=== PATIENT | female | born 1940 | race Caucasian/White ===

== ENCOUNTER 2023-05-24 15:18 | Emergency (ER) | payer MEDICARE, SELFPAY ==
[2023-05-24 15:23] VITALS: BP 137/76
[2023-05-24 15:55] LABS: % Basophils 0.5 % (0-2); % Eosinophils 3.2 % (0-6); % Immature Granulocytes 0.3 % (0-0.5); % Lymphocytes 7.6 % (20.5-51.1); % Monocytes 6.3 % (1.7-9.3); % Neutrophils 82.1 % (42.2-75.2); Absolute Eosinophils 0.3 10^3/uL (0-0.7); Absolute Lymphocytes 0.6 10^3/uL (1.2-3.4); Absolute Monocytes 0.5 10^3/uL (0.1-0.6); Absolute Neutrophils 6.4 10^3/uL (1.4-6.5); Hematocrit 40.7 % (37.0-47.0); Hemoglobin 12.6 g/dL (12.0-16.0); Mean Corpuscular Hgb 29.6 pg (27.0-31.0); Mean Corpuscular Volume 95.8 fL (81.0-99.0); Mean Platelet Volume 9.4 fL (7.4-10.4); Nucleated Red Blood Cells % 0 %; Platelet Count 171 10^3/uL (130-400); Red Blood Cell Count 4.25 10^6/uL (4.20-5.40); Red Cell Dist. Width 13.2 % (11.5-14.5); White Blood Cell Count 7.8 10^3/uL (4.8-10.8)
[2023-05-24 16:19] LABS: NT-proBNP 2960 pg/ml; Troponin I 0.024 ng/ml
[2023-05-24 16:23] LABS: ALT (SGPT) 11 U/L (0-35); AST (SGOT) 21 U/L (14-36); Albumin 3.9 g/dl (3.5-5.0); Alkaline Phosphatase 79 U/L (38-126); Blood Urea Nitrogen 36 mg/dl (7-17); Calcium 10.5 mg/dl (8.4-10.2); Carbon Dioxide 31 mmol/L (22-30); Chloride 100 mmol/L (98-107); Glucose 106 mg/dl (70-99); Potassium 4.6 mmol/L (3.5-5.1); Sodium 138 mmol/L (135-145); Total Bilirubin 1.2 mg/dl (0.2-1.3); Total Protein 6.9 g/dl (6.3-8.2); eGFR 29.39
--- NOTE | 2023-05-24 17:41 | ED.GENMED ---
History of Present Illness
General
Chief Complaint: Breathing Problem
Time Seen by Provider: 05/24/23 17:29
Travel History
Have you had any contact with someone who has COVID-19?: No
Do you have any symptoms of coronavirus? Fever > 100 degrees, chills, cough, shortness of breath, sore throat, loss of taste or smell, muscle aches, or headache?: No
History of Present Illness
History of Present Illness:
HPI: Patient presents due to shortness of breath. She has history of COPD and CHF. She noticed increased weight gain as well. She saw her a and p mechanic about 2 weeks ago and saw her product ambassador, Dr. Tubbs last week. She says that at that time
things were 'fine'. The shortness of breath has been a slow progression. She does have oxygen at home and her a and p mechanic suggest that she uses oxygen when she is out but does not have to use it at rest.
EXAM:
GENERAL: Well appearing in no distress, currently on nasal cannula satting 95% on 2 L/min
HEENT: Moist oral mucosa
CARDIOVASCULAR: No murmurs, normal heart rate, regular rhythm, No chest wall tenderness
PULMONARY: No respiratory distress, breath sounds are equally decreased with some rales at the bases
ABDOMEN: Soft with no peritoneal signs, no tenderness
NEUROLOGIC: Excellent strength all extremities, no coordination deficits
PSYCHIATRIC: Appropriate mental status, normal insight and judgement
EXTREMITIES: Nontender, moderate bilateral lower extremity edema, moves all extremities equally
SKIN: No rash, no lesions
TIME OF INITIAL ENCOUNTER: 6 PM
NUMBER AND COMPLEXITY OF PROBLEMS ADDRESSED AT THE ENCOUNTER
� Chronic conditions affecting care: Asthma, COPD, former smoker on home oxygen, A-fib, CHF, high blood pressure, hyperlipidemia, CKD, diabetes
� Acute Exacerbation and/or Progression of Chronic Illness: This is an acute problem
� Differential Diagnosis includes: CHF exacerbation, COPD exacerbation, pneumonia, viral syndrome, anemia
AMOUNT AND/OR COMPLEXITY OF DATA TO BE REVIEWED AND ANALYZED
� I performed an independent evaluation of and my interpretation is:
EKG: A paced, ventricular rate of 62, bifascicular block
CT:
X-rays: Chest x-ray shows no acute abnormality
Laboratory Studies: White count 7.8, hemoglobin 12.6, bicarb 31 similar to prior, creatinine 1.7 similar to prior, troponin 0.024, BNP 2960 which is lower than prior
Other:
� Review of other/old records: I reviewed old labs which shows similar bicarb and creatinine
� Clinical information was obtained by an independent historian: I spoke to the son at bedside
� Prescriptions/Medications Considered but not given:
� Further testing considered but not performed:
RISK OF COMPLICATIONS AND/OR MORBIDITY OR MORTALITY OF PATIENT MANAGEMENT
� Social determinants of health affecting care: Lives at home
� Discussion with other providers:
� Escalation of care including admission/observation vs risk of discharge considered: The patient does have history of COPD and CHF. She was given nebs steroids, and Bumex. She already has oxygen at home. She does not appear
to be in any significant respite distress currently. She has follow-up this week with pulmonary. I reassessed patient at 7:20 PM and she does not appear to be in any significant distress. Her room air sats currently are 98% on 2 L/min of oxygen.
Chest x-ray unremarkable. She overall feels comfortable with outpatient management.
Past History
Past History
ED Past Medical History: Arrthythmia, Asthma, CHF, COPD, NIDDM and Other (GI bleeding)
ED Past Surgical History:
Patient has exhibited threatening behavior?: No
PSI?: No
Social History
Tobacco: Former smoker
Alcohol: None
Drug: None
Personal:
Living: with family
Employment: Retired
Family History
Family History: Other (Noncontributory)
Phy Exam
Physical Exam
Physical Exam:
See HPI
Scores
Heart Failure Risk
Heart Failure Risk Score: Not Applicable
Course
Orders/Labs/Results
Orders:
Orders
05/24/23 15:30
EKG [Electrocardiogram (*1)] Urgent
Reason for Study: Shortness of Breath
EKG- Treatment ONCE
05/24/23 15:42
Complete Blood Count/With Diff Urgent
Comprehensive Metabolic Panel Urgent
NT-proBNP Urgent
Troponin I Urgent
05/24/23 17:42
CR Chest - 2 Views Urgent
Comment:
Reason For Exam: sob
05/24/23 18:07
Ipratropium/Albuterol Sulfate [Duoneb] 3 ml INH R NOW ONE
MethylPREDNISolone PF [Solu-Medrol Pf] 125 mg IV NOW STA
05/24/23 19:08
Bumetanide [Bumex] 2 mg IV NOW STA
Abnormal Lab Results
05/24/23
15:42
MCHC 31.0 L g/dL
(33.0-37.0)
Absolute Lymphs (auto) 0.6 L 10^3/uL
(1.2-3.4)
Neutrophils % 82.1 H %
(42.2-75.2)
Lymphocytes % 7.6 L %
(20.5-51.1)
Carbon Dioxide 31 H mmol/L
(22-30)
BUN 36 H mg/dl
(7-17)
Creatinine 1.7 H mg/dL
(0.6-1.0)
Glucose 106 H mg/dl
(70-99)
Calcium 10.5 H mg/dl
(8.4-10.2)
05/24/23 15:42
05/24/23 15:42
Vital Signs
Initial and Last Documented VS:
Initial Vital Signs
Temp Pulse Resp BP Pulse Ox
98.2 F 63 22 137/76 96
05/24/23 15:23 05/24/23 15:23 05/24/23 15:23 05/24/23 15:23 05/24/23 15:23
Last Documented Vital Signs
Temp Pulse Resp BP Pulse Ox
98.2 F 61 16 137/76 96
05/24/23 15:23 05/24/23 18:00 05/24/23 18:00 05/24/23 15:23 05/24/23 18:35
*Critical Care Note
Total Time (30-74mins, 75-104mins- exclusive of procedures): Not Applicable
ED Attending Note
-
Portions of this chart may have been created with voice recognition software.� Occasional wrong word or��sound alike� substitutions may have occurred due to the inherent limitations of voice recognition software.
Discharge Plan
Departure
Patient Disposition: Home (Routine Discharge)
Date of Disposition: 05/24/23
Time of Disposition: 19:17
Patient with high blood pressure during this ER visit?: Yes
Discharge Problem:
Increasing shortness of breath
Prescriptions:
New
prednisone 50 mg tablet
50 mg PO DAILY Qty: 4 0RF
No Action
atorvastatin [Lipitor] 10 mg Tablet
10 mg PO HS
Farxiga 10 mg Tablet
10 mg PO DAILY
duloxetine [Cymbalta] 20 mg Capsule,Delayed Release(Dr/Ec)
20 mg PO HS
metoprolol tartrate 25 mg Tablet
25 mg PO BID 30 Days Qty: 60 0RF
Eliquis 2.5 mg Tablet
2.5 mg PO BID 30 Days Qty: 60 0RF
Hold Instructions: Resume on 10/23/22. resume 10/23/22 starting PM dose
omeprazole 20 mg Capsule,Delayed Release(Dr/Ec)
20 mg PO DAILY
bumetanide 2 mg Tablet
2 mg PO DAILY Qty: 0 0RF
ferrous sulfate 325 mg (65 mg iron) Tablet
325 mg PO DAILY
polyethylene glycol 3350 17 gram Powder In Packet
17 g PO DAILY
amlodipine 2.5 mg Tablet
2.5 mg PO DAILY
alprazolam 0.25 mg Tablet
0.25 mg PO Q6H PRN (Reason: anxiety)
fluorouracil 0.5 % Cream
1 applic TOPICAL HS
diclofenac sodium 1 % Gel
4 g TOPICAL TID PRN (Reason: apply to left foot)
Trelegy Ellipta 100-62.5-25 mcg Blister With Device
1 inh INHALATION R DAILY
acetaminophen 325 mg Tablet
650 mg PO Q4HPRN PRN (Reason: mild pain/JAMA/temp> 100.4F) Qty: 0 0RF
Eliquis 5 mg tablet
5 mg PO BID Qty: 60 4RF
Referrals:
Stacy Oliveira DO [Family Provider] -
Activity Restrictions/Additional Instructions:
We gave an IV dose of Bumex as well as an IV dose of steroid. I am sending a prescription to your pharmacy for a few days of steroid help treat COPD. We also gave a DuoNeb here. Follow-up with your a and p mechanic and product ambassador.
Interventions
Interventions:
*Risk Screen - Suicide Last Done: 05/24/23 17:46
*General Assessment Last Done: 05/24/23 17:46
*Neglect/Abuse Screening Last Done: 05/24/23 17:46
ED- Fall Risk Assessment Last Done: 05/24/23 17:47
*ED COVID-19 Vaccine History Last Done: 05/24/23 17:46
ED- Cardiac Assessment Last Done: 05/24/23 17:47
ED- Pulmonary Assessment Last Done: 05/24/23 17:47
Discharge Date and Time
Print Language: WELSH
[2023-05-24 17:44] VITALS: BMI 27.2
[2023-05-24] MEDS: DUONEB 3 ML INH (19:07)
[2023-05-24] MEDS: SOLU-MEDROL PF 125 MG IV (19:07)
--- NOTE | 2023-05-24 19:17 | EDRN ---
Rrport received, introduced to patient and medicated as ordered, Doctor in to update patient as well.
[2023-05-24] MEDS: BUMEX 1 MG IV (19:31)
[2023-05-24 19:32] VITALS: BP 102/87
== END 2023-05-24 19:51 | disposition home or self-care (01) ==
LOC: EMR 15:18
PROVIDERS: EMERGENCY PHYSICIAN Emergency Medicine; FAMILY PHYSICIAN Student in an Organized Health Care Education/Training Program
DX: R06.02 Shortness of breath (principal); R22.43 Localized swelling, mass and lump, lower limb, bilateral; J44.89 Other specified chronic obstructive pulmonary disease; I48.91 Unspecified atrial fibrillation; I12.9 Hypertensive chronic kidney disease with stage 1 through stage 4 chronic kidney disease, or unspecified chronic kidney disease; I50.9 Heart failure, unspecified; E11.9 Type 2 diabetes mellitus without complications; N18.9 Chronic kidney disease, unspecified; E78.00 Pure hypercholesterolemia, unspecified; Z99.81 Dependence on supplemental oxygen; Z87.891 Personal history of nicotine dependence
CPT/HCPCS: 99285; 96374; 96375; 94640; 71046; 80053; 83880; 84484; 85025; 93005

== ENCOUNTER → 2023-06-11 12:34 | Outpatient (REF) | payer MEDICARE, SELFPAY ==
[2023-06-11 13:28] LABS: Albumin 3.7 g/dl (3.5-5.0); Blood Urea Nitrogen 44 mg/dl (7-17); Calcium 10.1 mg/dl (8.4-10.2); Carbon Dioxide 37 mmol/L (22-30); Chloride 101 mmol/L (98-107); Glucose 147 mg/dl (70-99); Phosphorus 4.1 mg/dl (2.5-4.5); Potassium 4.1 mmol/L (3.5-5.1); Sodium 140 mmol/L (135-145); eGFR 22.81
[2023-06-11 13:35] LABS: Hematocrit 39.1 % (37.0-47.0); Hemoglobin 12.5 g/dL (12.0-16.0); Mean Corpuscular Hgb 30.3 pg (27.0-31.0); Mean Corpuscular Volume 94.7 fL (81.0-99.0); Mean Platelet Volume 10.3 fL (7.4-10.4); Platelet Count 165 10^3/uL (130-400); Red Blood Cell Count 4.13 10^6/uL (4.20-5.40); Red Cell Dist. Width 13.7 % (11.5-14.5)
[2023-06-13 12:23] LABS: Intact PTH 368.6 pg/ml (13.6-85.8)
== END ==
LOC: OLABMERCHI 12:34
PROVIDERS: ATTENDING PHYSICIAN Internal Medicine; FAMILY PHYSICIAN Student in an Organized Health Care Education/Training Program
DX: N18.4 Chronic kidney disease, stage 4 (severe) (principal)
CPT/HCPCS: 36415; 80069; 83970; 85027

== ENCOUNTER → 2023-07-09 10:34 | Outpatient (REF) | payer MEDICARE, SELFPAY ==
[2023-07-09 11:55] LABS: HDL Cholesterol 41 mg/dl; LDL Cholesterol, Calculated 57 mg/dl; Total Cholesterol 121 mg/dl (50-199); Triglyceride 115 mg/dl (10-149); Very Low Density Lipoprotein 23 mg/dl (0-30)
[2023-07-09 12:12] LABS: Free T4 1.06 ng/dl (0.78-2.19)
[2023-07-09 12:23] LABS: Microalbumin, Random Urine 3.2 mg/dl (0.6-1.7); Microalbumin/creatinine Ratio 30.6 mg/g
[2023-07-09 12:26] LABS: TSH 1.48 uIU/ml (0.47-4.68)
[2023-07-09 14:26] LABS: Glycohemoglobin (HgbA1c) 5.5 % (4.0-5.6)
== END ==
LOC: OLABMERCHI 10:34
PROVIDERS: ATTENDING PHYSICIAN Student in an Organized Health Care Education/Training Program
DX: F32.0 Major depressive disorder, single episode, mild (principal); I10 Essential (primary) hypertension; E11.65 Type 2 diabetes mellitus with hyperglycemia; E53.8 Deficiency of other specified B group vitamins; I48.4 Atypical atrial flutter
CPT/HCPCS: 36415; 80061; 82043; 82570; 83036; 84439; 84443

== ENCOUNTER 2023-08-24 22:14 | Emergency (ER) | payer MEDICARE, SELFPAY ==
[2023-08-24 22:14] VITALS: BMI 25.4
[2023-08-24 22:17] VITALS: BP 140/63
[2023-08-24 22:44] LABS: % Basophils 0.8 % (0-2); % Eosinophils 2.6 % (0-6); % Immature Granulocytes 0.2 % (0-0.5); % Lymphocytes 10.8 % (20.5-51.1); % Monocytes 6.7 % (1.7-9.3); % Neutrophils 78.9 % (42.2-75.2); Absolute Basophils 0.1 10^3/uL (0-0.2); Absolute Eosinophils 0.2 10^3/uL (0-0.7); Absolute Monocytes 0.6 10^3/uL (0.1-0.6); Absolute Neutrophils 7.2 10^3/uL (1.4-6.5); Hematocrit 36.3 % (37.0-47.0); Hemoglobin 11.9 g/dL (12.0-16.0); Mean Corp Hgb Conc. 32.8 g/dL (33.0-37.0); Mean Corpuscular Hgb 30.9 pg (27.0-31.0); Mean Corpuscular Volume 94.3 fL (81.0-99.0); Mean Platelet Volume 9.4 fL (7.4-10.4); Nucleated Red Blood Cells % 0 %; Platelet Count 181 10^3/uL (130-400); Red Blood Cell Count 3.85 10^6/uL (4.20-5.40); Red Cell Dist. Width 13.2 % (11.5-14.5); White Blood Cell Count 9.1 10^3/uL (4.8-10.8)
[2023-08-24 23:02] LABS: ALT (SGPT) 12 U/L (0-35); AST (SGOT) 21 U/L (14-36); Alkaline Phosphatase 64 U/L (38-126); Blood Urea Nitrogen 56 mg/dl (7-17); Calcium 10.1 mg/dl (8.4-10.2); Carbon Dioxide 33 mmol/L (22-30); Chloride 97 mmol/L (98-107); Estimated Creatinine Clearance 17 ml/min; Glucose 136 mg/dl (70-99); Potassium 4.6 mmol/L (3.5-5.1); Sodium 138 mmol/L (135-145); Total Bilirubin 0.8 mg/dl (0.2-1.3); Total Protein 6.7 g/dl (6.3-8.2); eGFR 25.72
[2023-08-25] VITALS (7 sets, daily range): BP systolic 139–166; BP diastolic 56–85
--- NOTE | 2023-08-25 02:19 | ED.GENMED ---
History of Present Illness
General
Chief Complaint: Vaginal Bleeding
Source: patient
Exam Limitations: none
Time Seen by Provider: 08/25/23 01:33
History of Present Illness
History of Present Illness:
This is a 83 year old female that comes in with c/o bleeding from her vaginal. State that she had gone to dinner and then came back after dinner to the [place]. States that everything was fine. States that she went out and sat outside with everyone till
9pm. States that when she came in and went to Urinate she saw some blood. States that she felt it was bright red. States that she also felt that there was a gland that was larger on the right side. States that she is always SOB. Denies any
fever,chills, chest pain, abd pain, nausea, vomiting, diarrhea, headache, dizziness, urinary burning.
Past History
Past History
ED Past Medical History: Arrthythmia (Atrial fib), Asthma, Cancer (Skin CA), CHF, COPD, GERD, HTN, Hypercholesterolemia, NIDDM, Renal failure (Stage 4 renal disease), Psychiatric (Depression, ) and Other (GI bleeding, Ulcers, Chronic bronchitis,
Wears oxygen at 2 liters, UTI, Iron Def anemia, )
ED Past Surgical History: Cardiac (Pacemaker, Mitral valve repair, Stents x 2), Cholecystectomy, (X3 ), Orthopedic (Left hand surgery, ) and Other (Right eye surgery, )
Patient has exhibited threatening behavior?: No
PSI?: No
Social History
Tobacco: Former smoker
Alcohol: None
Drug: None
Personal:
Living: assisted living ([facility])
Employment: Retired
Family History
Family History: Other (Noncontributory)
Review of Systems
Review of Systems
All Other Systems: ROS reviewed and negative except as documented in HPI and ROS
Constitutional: Reports no symptoms; Denies fever or chills
EENT: Reports no symptoms
Respiratory: Reports trouble breathing (Always); Denies cough
Cardiac: Reports no symptoms; Denies chest pain
ABD/GI: Reports no symptoms; Denies abdominal pain, nausea, vomiting or diarrhea
: Reports bleeding (vaginal bleeding); Denies dysuria, frequency or urgency
Musculoskeletal: Reports no symptoms
Skin: Reports no symptoms
Neurological: Reports no symptoms; Denies dizzy or headache
Psychiatric: Reports no symptoms
Phy Exam
General Physical Exam
General Presentation: well appearing and no apparent distress
General age: appears stated age
General Skin: warm and dry
General Habitus: elderly
General Mental: alert
General Hydration: appears well hydrated
ENT Exam
ENT Exam: TM's normal, pharynx normal and neck supple
Eye Exam
Eye Exam: EOMI
Cardiovascular Exam
Cardiovascular Exam: regular rate/rhythm, no edema and normal peripheral pulses
Pulmonary Exam
Pulmonary Exam: lungs clear, no respiratory distress, no rales, chest non tender, no crackles, no rhonchi, no wheezing and no cough
Gastrointestinal Exam
Gastrointestinal Exam: normal bowel sounds, non tender, soft, no organomegaly, no pulsatile mass, non distended and other (Rectal exam stool brown hem negative)
Genitourinary Exam Female
Vaginal Exam: other (Small abrasion noted on the right external vaginal area. No bleeding noted at this time. )
Musculoskeletal Exam
Musculoskeletal Exam: full ROM and no edema
Skin Exam
Skin Exam: normal color, warm/dry, no rash and no petechia
Psychiatric Exam
Psychiatric Exam: normal mood/affect
Course
Orders/Labs/Results
Orders:
Orders
08/24/23 22:36
Complete Blood Count/With Diff Urgent
Comprehensive Metabolic Panel Urgent
08/25/23 02:14
Urinalysis Reflex To Culture Urgent
Date Specimen was Collected: 08/25/23
Time Specimen was Collected: 02:13
Urine Microscopic Reflex Cult Urgent
Abnormal Lab Results
08/24/23 08/25/23
22:36 02:14
RBC 3.85 L 10^6/uL
(4.20-5.40)
Hgb 11.9 L g/dL
(12.0-16.0)
Hct 36.3 L %
(37.0-47.0)
MCHC 32.8 L g/dL
(33.0-37.0)
Absolute Neuts (auto) 7.2 H 10^3/uL
(1.4-6.5)
Absolute Lymphs (auto) 1.0 L 10^3/uL
(1.2-3.4)
Neutrophils % 78.9 H %
(42.2-75.2)
Lymphocytes % 10.8 L %
(20.5-51.1)
Chloride 97 L mmol/L
(98-107)
Carbon Dioxide 33 H mmol/L
(22-30)
BUN 56 H mg/dl
(7-17)
Creatinine 1.9 H mg/dL
(0.6-1.0)
Glucose 136 H mg/dl
(70-99)
Ur Occult Blood Reflex 1+ A
(Negative)
Urine RBC 3-6 A /HPF
(0-2)
Urine Glucose 1+ A
(Negative)
08/24/23 22:36
08/24/23 22:36
H/H very slightly low. Charbon dioxide elevation. Chronic renal disease Stage 4, Glucose nonfasting. Urine negative for infection but positive for blood.
Vital Signs
Initial and Last Documented VS:
Initial Vital Signs
Temp Pulse Resp BP Pulse Ox
98.9 F 61 20 140/63 95
08/24/23 22:17 08/24/23 22:17 08/24/23 22:17 08/24/23 22:17 07/01/24 22:17
Last Documented Vital Signs
Temp Pulse Resp BP Pulse Ox
98.9 F 61 20 140/63 95
08/24/23 22:17 08/24/23 22:17 08/24/23 22:17 08/24/23 22:17 08/24/23 22:17
MDM/Problems Addressed
Differential Diagnosis Includes:
vaginal abrasion, UTI
MDM/Problems Addressed:
This is a 83 year old female that comes in with c/o bleeding from her vagina. States that after she came in around 9pm she went to the bathroom and she urinated and said that there was blood. States that she felt the gland on the right sided was
swollen in the vaginal area.
Will check labs. Straight cath urine and check external vaginal area.
back into see patient. Explained that her urine is negative for infection but there was some blood. This blood that was seen may be from the vaginal abrasion of Hematuria. Will have patient follow up with the family doctor and if needed a
Urologist. Patient to return with increased bleeding or any other concerns,.
Chronic conditions affecting care:
NA
Acute Exacerbation and/or Progression of Chronic Illness:
NA
*Pulse Oximetry
Patient hypoxic: no
*EKG
Interpreted by ED Provider?: NA
Rate: EKG- N/A
*Engineering Mgr Interpretation
Rate: Engineering Mgr- N/A
*Critical Care Note
Total Time (30-74mins, 75-104mins- exclusive of procedures): Not Applicable
ED Attending Note
-
Portions of this chart may have been created with voice recognition software.� Occasional wrong word or��sound alike� substitutions may have occurred due to the inherent limitations of voice recognition software.
Discharge Plan
Departure
Patient Disposition: Home (Routine Discharge)
Date of Disposition: 08/25/23
Time of Disposition: 02:49
Patient with high blood pressure during this ER visit?: Yes
Condition: Good
Covid-19: Not Applicable
Discharge Problem:
Abrasion of vagina
Instructions: Abrasions ED, BLOOD PRESSURE
Prescriptions:
No Action
atorvastatin [Lipitor] 10 mg Tablet
10 mg PO HS
dapagliflozin propanediol [Farxiga] 10 mg Tablet
10 mg PO DAILY
omeprazole 20 mg Capsule,Delayed Release(Dr/Ec)
20 mg PO DAILY@0700
bumetanide 2 mg Tablet
2 mg PO DAILY Qty: 0 0RF
ferrous sulfate 325 mg (65 mg iron) Tablet
325 mg PO DAILY
polyethylene glycol 3350 17 gram Powder In Packet
17 g PO DAILY
Trelegy Ellipta 100-62.5-25 mcg Blister With Device
1 inh INHALATION R DAILY
acetaminophen 325 mg Tablet
650 mg PO Q4HPRN PRN (Reason: mild pain/JAMA/temp> 100.4F) Qty: 0 0RF
duloxetine 30 mg capsule,delayed release(DR/EC)
30 mg PO HS
metoprolol tartrate 25 mg tablet
25 mg PO BID@0900,1700
Eliquis 2.5 mg tablet
2.5 mg PO BID@0900,1700
Referrals:
Stacy Oliveira DO [Family Provider] - Follow up in 2-3 days
Activity Restrictions/Additional Instructions:
As discussed, your blood work shows your chronic renal disease. Your H/H is slightly low but consistent with prior labs. There is a small abrasion on the right vaginal area that may have cause your bleeding. Your urine is also positive for blood.
This bleeding that you have seen may go away on its own. Please follow up with the family doctor for recheck. IF YOU HAVE INCREASED BLEEDING OR ANY OTHER CONCERNS PLEASE RETURN TO THE EMERGENCY ROOM.
Interventions
Interventions:
*Risk Screen - Suicide Last Done: 08/24/23 22:17
*General Assessment Last Done: 08/24/23 22:17
*Neglect/Abuse Screening Last Done: 08/24/23 22:17
*ED COVID-19 Vaccine History Last Done: 08/24/23 22:17
ED-Female Genitourinary Assessment Last Done: 08/24/23 22:28
Discharge Date and Time
Print Language: URDU
[2023-08-25 02:25] LABS: Urine Albumin Negative (Neg - Trace); Urine Bilirubin Negative (Negative); Urine Character Clear (Clear); Urine Color Yellow; Urine Glucose 1+ (Negative); Urine Ketone Negative (Negative); Urine Leukocyte Negative (Negative); Urine Nitrite Negative (Negative); Urine Occult Blood 1+ (Negative); Urine Urobilinogen Negative (Neg - 1+); Urine pH 6.5 (5.0-9.0)
[2023-08-25 02:39] LABS: Urine White Cell 0-2 /HPF (0-5)
== END 2023-08-25 07:45 | disposition home or self-care (01) ==
LOC: EMR 22:14
PROVIDERS: Clinical Nurse Specialist Family Health; EMERGENCY PHYSICIAN Student in an Organized Health Care Education/Training Program; FAMILY PHYSICIAN Student in an Organized Health Care Education/Training Program
DX: S30.814A Abrasion of vagina and vulva, initial encounter (principal); X58.XXXA Exposure to other specified factors, initial encounter; R06.02 Shortness of breath; I48.91 Unspecified atrial fibrillation; I11.0 Hypertensive heart disease with heart failure; I50.9 Heart failure, unspecified; K21.9 Gastro-esophageal reflux disease without esophagitis; E78.00 Pure hypercholesterolemia, unspecified; I13.0 Hypertensive heart and chronic kidney disease with heart failure and stage 1 through stage 4 chronic kidney disease, or unspecified chronic kidney disease; E11.22 Type 2 diabetes mellitus with diabetic chronic kidney disease; N18.4 Chronic kidney disease, stage 4 (severe); D50.9 Iron deficiency anemia, unspecified; J44.9 Chronic obstructive pulmonary disease, unspecified; Z79.01 Long term (current) use of anticoagulants; Z99.81 Dependence on supplemental oxygen; Z90.49 Acquired absence of other specified parts of digestive tract; Z95.5 Presence of coronary angioplasty implant and graft; Z95.2 Presence of prosthetic heart valve; Z95.0 Presence of cardiac pacemaker; Z87.891 Personal history of nicotine dependence; Z85.828 Personal history of other malignant neoplasm of skin; Z87.440 Personal history of urinary (tract) infections
CPT/HCPCS: 99283; 51701; 80053; 81003; 81015; 85025

== ENCOUNTER → 2023-10-22 09:51 | Outpatient (REF) | payer MEDICARE, SELFPAY ==
[2023-10-22 11:51] LABS: Albumin 3.6 g/dl (3.5-5.0); Blood Urea Nitrogen 57 mg/dl (7-17); Calcium 10.1 mg/dl (8.4-10.2); Carbon Dioxide 39 mmol/L (22-30); Chloride 96 mmol/L (98-107); Glucose 82 mg/dl (70-99); Potassium 4.2 mmol/L (3.5-5.1); Sodium 142 mmol/L (135-145); eGFR 27.44
[2023-10-22 12:04] LABS: Vitamin D, 25-OH*** 52.3 ng/mL (30-80)
== END ==
LOC: OLABMERCHI 09:51
PROVIDERS: ATTENDING PHYSICIAN Internal Medicine
DX: N18.4 Chronic kidney disease, stage 4 (severe) (principal); E21.3 Hyperparathyroidism, unspecified
CPT/HCPCS: 36415; 80069; 82306

== ENCOUNTER → 2023-12-24 09:58 | Outpatient (REF) | payer MEDICARE, SELFPAY ==
[2023-12-24 10:29] LABS: Albumin 3.4 g/dl (3.5-5.0); Blood Urea Nitrogen 51 mg/dl (7-17); Calcium 9.9 mg/dl (8.4-10.2); Carbon Dioxide 36 mmol/L (22-30); Chloride 97 mmol/L (98-107); Glucose 95 mg/dl (70-99); Phosphorus 3.8 mg/dl (2.5-4.5); Potassium 4.1 mmol/L (3.5-5.1); Sodium 144 mmol/L (135-145); eGFR 24.18
== END ==
LOC: OLABMERCHI 09:58
PROVIDERS: ATTENDING PHYSICIAN Nurse Practitioner Adult Health
DX: N18.4 Chronic kidney disease, stage 4 (severe) (principal)
CPT/HCPCS: 36415; 80069

== ENCOUNTER → 2024-03-09 13:28 | Outpatient (REF) | payer MEDICARE, SELFPAY | LOC: MRI 13:28 | PROVIDERS: ATTENDING PHYSICIAN Surgery; FAMILY PHYSICIAN Internal Medicine | DX: D41.01 Neoplasm of uncertain behavior of right kidney (principal) | CPT/HCPCS: 74183; A9575 ==

== ENCOUNTER → 2024-03-17 12:10 | Outpatient (REF) | payer MEDICARE, SELFPAY ==
[2024-03-17 12:31] LABS: % Basophils 0.7 % (0-2); % Eosinophils 4.1 % (0-6); % Immature Granulocytes 0.3 % (0-0.5); % Lymphocytes 12.4 % (20.5-51.1); % Monocytes 7.6 % (1.7-9.3); % Neutrophils 74.9 % (42.2-75.2); Absolute Basophils 0.1 10^3/uL (0-0.2); Absolute Eosinophils 0.3 10^3/uL (0-0.7); Absolute Lymphocytes 0.9 10^3/uL (1.2-3.4); Absolute Monocytes 0.5 10^3/uL (0.1-0.6); Absolute Neutrophils 5.1 10^3/uL (1.4-6.5); Hematocrit 35.4 % (37.0-47.0); Mean Corp Hgb Conc. 31.1 g/dL (33.0-37.0); Mean Corpuscular Hgb 30.6 pg (27.0-31.0); Mean Corpuscular Volume 98.3 fL (81.0-99.0); Mean Platelet Volume 10.6 fL (7.4-10.4); Nucleated Red Blood Cells % 0 %; Platelet Count 165 10^3/uL (130-400); Red Cell Dist. Width 13.5 % (11.5-14.5); White Blood Cell Count 6.8 10^3/uL (4.8-10.8)
[2024-03-17 12:56] LABS: NT-proBNP 7130 pg/ml
[2024-03-17 13:23] LABS: Albumin 3.2 g/dl (3.5-5.0); Blood Urea Nitrogen 44 mg/dl (7-17); Calcium 9.7 mg/dl (8.4-10.2); Chloride 97 mmol/L (98-107); Glucose 99 mg/dl (70-99); Phosphorus 3.7 mg/dl (2.5-4.5); Sodium 142 mmol/L (135-145); eGFR 27.44
[2024-03-17 13:34] LABS: Carbon Dioxide 36 mmol/L (22-30)
[2024-03-19 09:28] LABS: Intact PTH 303.4 pg/ml (13.6-85.8)
== END ==
LOC: OLABMERCHI 12:10
PROVIDERS: ATTENDING PHYSICIAN Internal Medicine
DX: N18.4 Chronic kidney disease, stage 4 (severe) (principal); I50.32 Chronic diastolic (congestive) heart failure; E21.3 Hyperparathyroidism, unspecified
CPT/HCPCS: 36415; 80069; 83880; 83970; 85025

== ENCOUNTER 2024-04-12 19:15 | Inpatient (IN) | payer MEDICARE, SELFPAY ==
[2024-04-12] VITALS (27 sets, daily range): BP systolic 88–154; BP diastolic 43–75; PULSE 2; BMI 29.7; BMI 26.6
--- NOTE | 2024-04-12 17:34 | ED.GENMED ---
History of Present Illness
<Rhonda Feng PAINTER SKI EDGE - Last Filed: 04/13/24 00:05>
General
Chief Complaint: Breathing Problem
Source: patient and family (son at bedside)
Exam Limitations: none
Time Seen by Provider: 04/12/24 17:23
Nursing documentation reviewed up to this point in time: agreed with
History of Present Illness
History of Present Illness:
83-year-old female from [facility] w h/o COPD, chronic home oxygen, A-fib, on Eliquis, CHF, HTN, HLD, pacemaker, GERD, chronic renal failure, anemia, depression presents for episode of unresponsiveness, hypotension, hypoxemia.
EMS reports that her pulse ox when they got there was less than 80, she was not wearing her 2 L nasal cannula O2 that she wears all day every day usually, her breathing was labored, she was pale and clammy, her blood pressure was 80/40
Son at bedside states 5 days ago was when he saw her last and she was awake oriented and well-appearing
He states she has been 'sick' all weekend with cough, congestion. He went to see her last night and did a home COVID test which was negative. She had taken her nebulizer apart 3 days ago and was unable to get back together so she had not had any
of her twice daily nebulization treatments for the past 3 days. Her son fixed last night and she had a treatment.
Her son went to pick her up today at 4 PM for doctor's appointment with her PCP Allyssa Juarez and found her unresponsive. He thought she was sleeping, he went over and tried to wake her up she responded weekly and then went 'back to sleep' again.
She was not wearing her oxygen at the time. The son called the nurses in and he says her pulse ox was really low. They called EMS.
On arrival patient is clammy, has labored breathing, her pulse ox is in the 80s, her oxygen is up to 4 L nasal cannula now with a pulse ox improving to 93.
Patient is lethargic but easily arouses, smiles and answers questions appropriately. She denies pain now but said she had chest pain earlier and trouble breathing, she states she feels her breathing is improving. She states she had abdominal pain
earlier but none now. She denies N/V/C/D.
Son states patient is a full code he is the POA
Past History
<Rhonda Feng, PAINTER SKI EDGE - Last Filed: 04/13/24 00:05>
Past History
ED Past Medical History: Arrthythmia (Atrial fib), Asthma, Cancer (Skin CA), CHF, COPD, GERD, HTN, Hypercholesterolemia, NIDDM, Renal failure (Stage 4 renal disease), Psychiatric (Depression, ) and Other (GI bleeding, Ulcers, Chronic bronchitis,
Wears oxygen at 2 liters, UTI, Iron Def anemia, )
ED Past Surgical History: Cardiac (Pacemaker, Mitral valve repair, Stents x 2), Cholecystectomy, (X3 ), Orthopedic (Left hand surgery, ) and Other (Right eye surgery, )
Patient has exhibited threatening behavior?: No
PSI?: No
Social History
Tobacco: Former smoker
Alcohol: None
Drug: None
Personal:
Living: assisted living ([facility])
Employment: Retired
Family History
Family History: Other (Noncontributory)
Review of Systems
<Rhonda Feng, PAINTER SKI EDGE - Last Filed: 04/13/24 00:05>
Review of Systems
Allergies reviewed?: Yes
All Other Systems: ROS reviewed and negative except as documented in HPI and ROS
Constitutional: Reports fatigue; Denies fever
Respiratory: Reports trouble breathing
Cardiac: Reports chest pain (states earlier, none now), diaphoresis and syncope
ABD/GI: Denies abdominal pain, nausea, vomiting or diarrhea
: Denies dysuria
Musculoskeletal: Denies edema
Neurological: Reports weakness
Phy Exam
<Rhonda Feng, PAINTER SKI EDGE - Last Filed: 04/13/24 00:05>
Physical Exam
Physical Exam:
GENERAL: Pale, clammy, lethargic but arousable. Ox3.
CONSTITUTIONAL: Afebrile.
EYES: clear, conjunctivae normal
ENMT: dry mucus membranes, Pharynx nl
RESPIRATORY: Regular respirations, labored using abdominal muscles, lungs w diminished BS throughout
CARDIOVASCULAR: Regular rate and rhythm, no murmurs, no rubs.
GI: Soft, nontender, normal BS
MUSCULOSKELETAL: Mild bilateral LE edema. Well perfused.
SKIN: Warm, dry, pale
PSYCH: Depressed mood and affect. Well kept, interactive and appropriate when aroused
NEUROLOGIC: Lethargic, easily arouses, appropriate. Follows commands, no focal neuro deficits.
Scores
<Rhonda Feng, PAINTER SKI EDGE - Last Filed: 04/13/24 00:05>
Heart Failure Risk
Heart Failure Risk Score: Yes
History of Stroke or TIA: No
History of intubation for respiratory distress: No
Heart rate on ED arrival >/= 110: No
SaO2 <90% on arrival on room air: Yes
HR >/=110 during 3min walk test (or too ill to perform test): Yes
ECG has acute ischemic changes: No
Urea >/=12mmol/L (BUN 33.6mg/dL): Yes
Serum CO2>/=35mmol/L: Yes
Troponin I or T elevated to SC Level (0.4mg/dL): Yes
NT-proBNP >/=5,000ng/L (5,000pg/ml): Yes
HF Risk Score: 9
Admission Status: VERY HIGH RISK 89% Consider admission to hospital
Course
<Rhonda Feng, PAINTER SKI EDGE - Last Filed: 04/13/24 00:05>
Orders/Labs/Results
Orders:
Orders
04/12/24 Breakfast
2000 calorie (17 carb) Diabetic
At Your Request: Limited Participation
Does patient need a safe tray?: No
Fluid Restriction: 1200 mL/day (40 oz)
04/12/24 17:02
Electrocardiogram (*1) Urgent
Reason for Study: Shortness of Breath
04/12/24 17:12
Cardiac Monitoring- Treatment ONCE
IV Insert/Care/Rem.- Treatment PRN
CR Chest Portable - 1 View Urgent
Comment:
Reason For Exam: respiratory distress
Reason Study Needs to be Portable: Patient Unstable
O2 Therapy [RESP] Urgent
Titrate/Wean O2 to maintain O2 sat greater than (%): 93
Special Instructions: TO MAINTAIN CONTINUOUS O2 SATS >/= 93%
Pulse Ox/cont/shift [RESP] Urgent
Quantity: 1
Special Instructions: continuous pulse ox
04/12/24 17:17
Complete Blood Count/With Diff Urgent
Comprehensive Metabolic Panel Urgent
NT-proBNP Urgent
Troponin I Urgent
04/12/24 17:46
COVID-19 Antigen Urgent
Source: Nasal Swab
INF RAPID [Influenza A+B Rapid Molecular] Urgent
OBED Source: Nasal Swab
Specimen Description:
04/12/24 18:08
Furosemide [Lasix] 40 mg IV NOW STA
04/12/24 18:40
Admit/Transfer Patient As Directed
Co-Sign Provider:
Level of Care: Inpatient admission
Assign to:: Telemetry
Physician / Group: tran
Diagnosis: acute hypoxic respiratory failure
Reason for Telemetry: Subacute Heart Failure
Date to Stop Telemetry: 04/14/24
Time to Stop Telemetry: 11:00
Reason for Hospitalization: acute hypoxic respiratory failure
Expected length of stay greater than two midnights?: Yes
ELOS- Estimated Length of Stay in days: 3
I certify the patient meets the requirements for IP care: Yes
PRN Pain Medication Management As Directed
May give lesser potent ordered pain med per pt: Yes
preference::
Protocol:: Medication orders for pain may be administered in a
manner that supports deferring to patient preference
when the pt is:
- Requesting an ordered lesser potent pain medication.
Least to most potent pain medications are defined
as: acetaminophen < NSAID < tramadol < opioids
(morphine, oxycodone, hydromorphone).
- Requesting a lesser dose of the same medication IF
ORDERED.
- Requesting a less intrusive route of administration
if both routes are prescribed by the provider (PO <
IV).
04/12/24 18:41
Code Status As Directed
Resuscitation Status: Full Code
04/12/24 19:15
Ipratropium/Albuterol Sulfate [Duoneb] 3 ml INH R NOW ONE
MethylPREDNISolone PF [Solu-Medrol Pf] 125 mg IV NOW STA
04/12/24 20:52
Apixaban [Eliquis] 2.5 mg PO BID
Dextrose 50%-Water [Dextrose 50% Syringe] 12.5 grams IV [id number] PRN
Glucagon [GlucaGen] 1 mg IM PRN PRN
ensifentrine [Ohtuvayre] See Dose Instructions INH R BID
04/12/24 20:52
Echo 2D MMode Color/Doppler Routine
Reason for Study: heart failure
CARDIOLOGY CONSULT Routine
Consulting Provider: George Fong
Was physician already notified: Yes
HF DIETARY CONSULT Routine
HF EDUCATOR CONSULT Routine
Comment:
Activity As Directed
Activity Level: As Tolerated
Bedside Glucose Monitoring As Directed
Frequency: AC&HS
Additional Instructions:: Change to q6h if pt on TPN, tube feeding or not eating
Intake/ Output As Directed
Frequency: Per unit guidelines
Patient Education As Directed
Type: CHF folder
Comment: give on admission. Document in Interdisciplinary Education record
Sleep Apnea Assessment by RN As Directed
Comment:
Physician Instructions:
Vital Signs As Directed
Frequency: Other
Additional Instructions:: Q12 or per unit guidelines if more frequent.
Weight As Directed
Frequency: Daily
Type of Scale: Standing Scale
Comment: Daily morning weight. If unable to stand, use balanced bed scale.
Weight As Directed
Frequency: Once
Type of Scale: Standing Scale
Comment: Upon Admission. If unable to stand, use balanced bed scale.
Pulse Ox/cont/shift [RESP] Routine
Quantity: 1
Special Instructions: Daily pulse oximetry at rest. If greater than 92% at rest also obtain pulse oximetry
while ambulating as tolerated.
Pt Eval And Treat Routine
Activity Level: As Tolerated
04/12/24 21:00
Metoprolol [Lopressor] 12.5 mg PO BID
04/12/24 21:33
Troponin I Q6H
Comment: at admission & every 6 hours x 2 (3 total), ECG to be done with each level
04/12/24 22:00
Duloxetine Delayed Release [Cymbalta Delayed Release] 30 mg PO HS
04/13/24 04:00
Troponin I Q6H
Comment: at admission & every 6 hours x 2 (3 total), ECG to be done with each level
04/13/24 06:00
Basic Metabolic Panel IN AM
Cardiovascular Evaluation IN AM
Complete Blood Count/No Diff IN AM
Glycohemoglobin (HgbA1c) IN AM
Nviim-Ungg-Wqyxiir IN AM
Magnesium IN AM
TSH Reflex To Free T4 IN AM
04/13/24 07:30
Insulin Aspart Corrective Low [Novolog Flexpen-Low Resistance] See Protocol SC AC
04/13/24 08:00
Atorvastatin [Lipitor] 20 mg PO DAILY
Ferrous Sulfate [Feosol] 325 mg PO DAILY
Furosemide [Lasix] 40 mg IV DAILY
Pantoprazole [Protonix] 40 mg PO DAILY
Polyethylene Glycol Powder [Miralax] 17 grams PO DAILY
04/14/24 06:00
Basic Metabolic Panel IN AM
Complete Blood Count/No Diff IN AM
04/14/24 11:00
DC Protocol for Telemetry ONCE
04/15/24 06:00
Basic Metabolic Panel IN AM
Complete Blood Count/No Diff IN AM
Abnormal Lab Results
04/12/24
17:17
WBC 12.0 H 10^3/uL
(4.8-10.8)
MCV 105.1 H fL
(81.0-99.0)
MCHC 28.6 L g/dL
(33.0-37.0)
Abs Immat Gran (auto) 0.1 H 10^3/uL
(0-0.05)
Absolute Neuts (auto) 11.0 H 10^3/uL
(1.4-6.5)
Absolute Lymphs (auto) 0.5 L 10^3/uL
(1.2-3.4)
Neutrophils % 91.5 H %
(42.2-75.2)
Lymphocytes % 4.2 L %
(20.5-51.1)
Sodium 147 H mmol/L
(135-145)
Chloride 97 L mmol/L
(98-107)
Carbon Dioxide 39 H mmol/L
(22-30)
BUN 51 H mg/dl
(7-17)
Creatinine 2.1 H mg/dL
(0.6-1.0)
Glucose 166 H mg/dl
(70-99)
AST 108 H U/L
(14-36)
ALT 49 H U/L
(0-35)
Troponin I 0.094 H* ng/ml
04/12/24 17:17
04/12/24 17:17
Vital Signs
Initial and Last Documented VS:
Initial Vital Signs
Pulse Resp
70 26
04/12/24 16:58 04/12/24 16:58
Last Documented Vital Signs
Temp Pulse Resp BP Pulse Ox
98.0 F 67 24 151/69 95
04/12/24 23:04 04/12/24 23:04 04/12/24 23:04 04/12/24 23:04 04/12/24 23:04
Factory Engineer consulted with Physician
Factory Engineer consulted with physician?: Yes
Name of Physician Consulted: Luisa
<Ludin Moran, DO - Last Filed: 04/12/24 18:22>
Orders/Labs/Results
Orders:
Orders
04/12/24 Breakfast
2000 calorie (17 carb) Diabetic
At Your Request: Limited Participation
Does patient need a safe tray?: No
Fluid Restriction: 1200 mL/day (40 oz)
04/12/24 17:02
Electrocardiogram (*1) Urgent
Reason for Study: Shortness of Breath
04/12/24 17:12
Cardiac Monitoring- Treatment ONCE
IV Insert/Care/Rem.- Treatment PRN
CR Chest Portable - 1 View Urgent
Comment:
Reason For Exam: respiratory distress
Reason Study Needs to be Portable: Patient Unstable
O2 Therapy [RESP] Urgent
Titrate/Wean O2 to maintain O2 sat greater than (%): 93
Special Instructions: TO MAINTAIN CONTINUOUS O2 SATS >/= 93%
Pulse Ox/cont/shift [RESP] Urgent
Quantity: 1
Special Instructions: continuous pulse ox
04/12/24 17:17
Complete Blood Count/With Diff Urgent
Comprehensive Metabolic Panel Urgent
NT-proBNP Urgent
Troponin I Urgent
02/18/25 17:46
COVID-19 Antigen Urgent
Source: Nasal Swab
INF RAPID [Influenza A+B Rapid Molecular] Urgent
OBED Source: Nasal Swab
Specimen Description:
04/12/24 18:08
Furosemide [Lasix] 40 mg IV NOW STA
04/12/24 18:40
Admit/Transfer Patient As Directed
Co-Sign Provider:
Level of Care: Inpatient admission
Assign to:: Telemetry
Physician / Group: tran
Diagnosis: acute hypoxic respiratory failure
Reason for Telemetry: Subacute Heart Failure
Date to Stop Telemetry: 04/14/24
Time to Stop Telemetry: 11:00
Reason for Hospitalization: acute hypoxic respiratory failure
Expected length of stay greater than two midnights?: Yes
ELOS- Estimated Length of Stay in days: 3
I certify the patient meets the requirements for IP care: Yes
PRN Pain Medication Management As Directed
May give lesser potent ordered pain med per pt: Yes
preference::
Protocol:: Medication orders for pain may be administered in a
manner that supports deferring to patient preference
when the pt is:
- Requesting an ordered lesser potent pain medication.
Least to most potent pain medications are defined
as: acetaminophen < NSAID < tramadol < opioids
(morphine, oxycodone, hydromorphone).
- Requesting a lesser dose of the same medication IF
ORDERED.
- Requesting a less intrusive route of administration
if both routes are prescribed by the provider (PO <
IV).
04/12/24 18:41
Code Status As Directed
Resuscitation Status: Full Code
04/12/24 19:15
Ipratropium/Albuterol Sulfate [Duoneb] 3 ml INH R NOW ONE
MethylPREDNISolone PF [Solu-Medrol Pf] 125 mg IV NOW STA
04/12/24 20:52
Apixaban [Eliquis] 2.5 mg PO BID
Dextrose 50%-Water [Dextrose 50% Syringe] 12.5 grams IV [id number] PRN
Glucagon [GlucaGen] 1 mg IM PRN PRN
ensifentrine [Ohtuvayre] See Dose Instructions INH R BID
04/12/24 20:52
Echo 2D MMode Color/Doppler Routine
Reason for Study: heart failure
CARDIOLOGY CONSULT Routine
Consulting Provider: George Fong
Was physician already notified: Yes
HF DIETARY CONSULT Routine
HF EDUCATOR CONSULT Routine
Comment:
Activity As Directed
Activity Level: As Tolerated
Bedside Glucose Monitoring As Directed
Frequency: AC&HS
Additional Instructions:: Change to q6h if pt on TPN, tube feeding or not eating
Intake/ Output As Directed
Frequency: Per unit guidelines
Patient Education As Directed
Type: CHF folder
Comment: give on admission. Document in Interdisciplinary Education record
Sleep Apnea Assessment by RN As Directed
Comment:
Physician Instructions:
Vital Signs As Directed
Frequency: Other
Additional Instructions:: Q12 or per unit guidelines if more frequent.
Weight As Directed
Frequency: Daily
Type of Scale: Standing Scale
Comment: Daily morning weight. If unable to stand, use balanced bed scale.
Weight As Directed
Frequency: Once
Type of Scale: Standing Scale
Comment: Upon Admission. If unable to stand, use balanced bed scale.
Pulse Ox/cont/shift [RESP] Routine
Quantity: 1
Special Instructions: Daily pulse oximetry at rest. If greater than 92% at rest also obtain pulse oximetry
while ambulating as tolerated.
Pt Eval And Treat Routine
Activity Level: As Tolerated
04/12/24 21:00
Metoprolol [Lopressor] 12.5 mg PO BID
04/12/24 21:33
Troponin I Q6H
Comment: at admission & every 6 hours x 2 (3 total), ECG to be done with each level
04/12/24 22:00
Duloxetine Delayed Release [Cymbalta Delayed Release] 30 mg PO HS
04/13/24 04:00
Troponin I Q6H
Comment: at admission & every 6 hours x 2 (3 total), ECG to be done with each level
04/13/24 06:00
Basic Metabolic Panel IN AM
Cardiovascular Evaluation IN AM
Complete Blood Count/No Diff IN AM
Glycohemoglobin (HgbA1c) IN AM
Usxcn-Uaqs-Efdzxui IN AM
Magnesium IN AM
TSH Reflex To Free T4 IN AM
04/13/24 07:30
Insulin Aspart Corrective Low [Novolog Flexpen-Low Resistance] See Protocol SC AC
04/13/24 08:00
Atorvastatin [Lipitor] 20 mg PO DAILY
Ferrous Sulfate [Feosol] 325 mg PO DAILY
Furosemide [Lasix] 40 mg IV DAILY
Pantoprazole [Protonix] 40 mg PO DAILY
Polyethylene Glycol Powder [Miralax] 17 grams PO DAILY
04/14/24 06:00
Basic Metabolic Panel IN AM
Complete Blood Count/No Diff IN AM
04/14/24 11:00
DC Protocol for Telemetry ONCE
04/15/24 06:00
Basic Metabolic Panel IN AM
Complete Blood Count/No Diff IN AM
Abnormal Lab Results
04/12/24
17:17
WBC 12.0 H 10^3/uL
(4.8-10.8)
MCV 105.1 H fL
(81.0-99.0)
MCHC 28.6 L g/dL
(33.0-37.0)
Abs Immat Gran (auto) 0.1 H 10^3/uL
(0-0.05)
Absolute Neuts (auto) 11.0 H 10^3/uL
(1.4-6.5)
Absolute Lymphs (auto) 0.5 L 10^3/uL
(1.2-3.4)
Neutrophils % 91.5 H %
(42.2-75.2)
Lymphocytes % 4.2 L %
(20.5-51.1)
Sodium 147 H mmol/L
(135-145)
Chloride 97 L mmol/L
(98-107)
Carbon Dioxide 39 H mmol/L
(22-30)
BUN 51 H mg/dl
(7-17)
Creatinine 2.1 H mg/dL
(0.6-1.0)
Glucose 166 H mg/dl
(70-99)
AST 108 H U/L
(14-36)
ALT 49 H U/L
(0-35)
Troponin I 0.094 H* ng/ml
04/12/24 17:17
04/12/24 17:17
Vital Signs
Initial and Last Documented VS:
Initial Vital Signs
Pulse Resp
70 26
04/12/24 16:58 04/12/24 16:58
Last Documented Vital Signs
Temp Pulse Resp BP Pulse Ox
98.0 F 67 24 151/69 95
04/12/24 23:04 04/12/24 23:04 04/12/24 23:04 04/12/24 23:04 04/12/24 23:04
<Rhonda Feng PAINTER SKI EDGE - Last Filed: 04/13/24 00:05>
MDM/Problems Addressed
Differential Diagnosis Includes:
CHF, SC, Covid, PNA, Flu
MDM/Problems Addressed:
83-year-old female from [facility] w h/o COPD, chronic home oxygen, A-fib, on Eliquis, CHF, HTN, HLD, pacemaker, GERD, chronic renal failure, anemia, depression presents for episode of unresponsiveness, hypotension, hypoxemia.
EMS reports that her pulse ox when they got there was less than 80, she was not wearing her 2 L nasal cannula O2 that she wears all day every day usually, her breathing was labored, she was pale and clammy, her blood pressure was 80/40
Son at bedside states 5 days ago was when he saw her last and she was awake oriented and well-appearing
He states she has been 'sick' all weekend with cough, congestion. He went to see her last night and did a home COVID test which was negative. She had taken her nebulizer apart 3 days ago and was unable to get back together so she had not had any
of her twice daily nebulization treatments for the past 3 days. Her son fixed last night and she had a treatment.
Her son went to pick her up today at 4 PM for doctor's appointment with her PCP Allyssa Juarez and found her unresponsive. He thought she was sleeping, he went over and tried to wake her up she responded weekly and then went 'back to sleep' again.
She was not wearing her oxygen at the time. The son called the nurses in and he says her pulse ox was really low. They called EMS.
On arrival patient is clammy, has labored breathing, her pulse ox is in the 80s, her oxygen is up to 4 L nasal cannula now with a pulse ox improving to 91%.
Patient is lethargic but easily arouses, smiles and answers questions appropriately. She denies pain now but said she had chest pain earlier and trouble breathing, she states she feels her breathing is improving. She states she had abdominal pain
earlier but none now. She denies N/V/C/D.
Son states patient is a full code he is the POA
BP 88/49 HR 68 RR 22 unlabored afebrile
Patient's pulse ox dropped to 86% on 4 L nasal cannula, increased to 6 L, will consider mid flow oxygen
EKG: Sinus 1st degree block, right BBB, left anterior fascicular block, left ventricular hypertrophy
5:45 p.m.
BP 116/64 HR 78 Pulse ox 97% on 5 L n.c.
Lethargic, Responding appropriately
CXR radiology report read: IMPRESSION:
Low lung volumes. Generalized prominence of bronchovascular markings and interstitial markings. Possibly, in part, artifactual. However, this may also be related to mild vascular congestion and interstitial edema in the proper clinical setting. No
evidence of pneumonia.
6:10 PM:
CMP:noted
Troponin mildly elevated at 0.094
BNP 17,700
Plan: Admit:
CHF: With acute respiratory failure
Influenza A
Hospitalist notified of admission
Critical care statement: A total of 40 minutes of critical care time was provided for this patient. This includes management of unstable vital signs, evaluation of the patient at bedside, reviewing the patient's pertinent medical records, discussion
with consultants, review of old EKGs and review of pertinent medical records. This time with separate from time utilized to perform the aforementioned documented procedures
<Rhonda Feng PAINTER SKI EDGE - Last Filed: 04/13/24 00:05>
*EKG
EKG Intrepretation Date: 04/12/24
Interpretation: abnormal
Heart Rate: 73
Rate: normal
Rhythm: sinus
[place]: normal axis
Interval: first degree heart block
QRS Pattern: left bundle branch block and left vent hypertrophy
Ischemia: no ischemia
*Critical Care Note
Total Time (30-74mins, 75-104mins- exclusive of procedures): Not Applicable
ED Attending Note
<Rhonda Feng PAINTER SKI EDGE - Last Filed: 04/13/24 00:05>
-
Portions of this chart may have been created with voice recognition software.� Occasional wrong word or��sound alike� substitutions may have occurred due to the inherent limitations of voice recognition software.
<Ludin Moran DO - Last Filed: 04/12/24 18:22>
ED Attending Note
Patient seen and examined by attending physician: Yes
I performed the substantive portion of visit, reviewed & personally made and approve the management plan that is documented in note by myself or IRASEMA.: Yes
ED Attending Note:
Seen with PAINTER SKI EDGE examined independently looks volume overloaded chronic respiratory failure from COPD and CHF, plan for supplemental oxygen diuretic follow closely
Discharge Plan
Departure
Patient Disposition: Admit
Date of Disposition: 04/12/24
Time of Disposition: 18:12
Presentation/result/management discussed w/ accepting MD/DO: Hospitalist
Condition: Serious
Covid-19: Negative COVID-19
Discharge Problem:
Acute respiratory failure, CHF (congestive heart failure), Influenza A
Interventions
Interventions:
*Risk Screen - Suicide Last Done: 04/12/24 17:04
*General Assessment Last Done: 04/12/24 17:04
*Neglect/Abuse Screening Last Done: 04/12/24 18:37
*ED COVID-19 Vaccine History Last Done: 04/12/24 18:18
*Nursing Disposition Last Done: 04/12/24 20:53
ED- Cardiac Assessment Last Done: 04/12/24 18:18
ED- Pulmonary Assessment Last Done: 04/12/24 18:18
Discharge Date and Time
Discharge Date/Time: 04/12/24 20:54
[2024-04-12 17:42] LABS: ALT (SGPT) 49 U/L (0-35); AST (SGOT) 108 U/L (14-36); Albumin 4.2 g/dl (3.5-5.0); Alkaline Phosphatase 67 U/L (38-126); Blood Urea Nitrogen 51 mg/dl (7-17); Calcium 9.9 mg/dl (8.4-10.2); Carbon Dioxide 39 mmol/L (22-30); Chloride 97 mmol/L (98-107); Estimated Creatinine Clearance 17 ml/min; Glucose 166 mg/dl (70-99); Sodium 147 mmol/L (135-145); Total Bilirubin 1.2 mg/dl (0.2-1.3); Total Protein 7.1 g/dl (6.3-8.2); eGFR 22.81
[2024-04-12 17:54] LABS: NT-proBNP 17700 pg/ml; Troponin I 0.094 ng/ml
[2024-04-12 18:08] LABS: % Basophils 0.2 % (0-2); % Eosinophils 0.2 % (0-6); % Immature Granulocytes 0.5 % (0-0.5); % Lymphocytes 4.2 % (20.5-51.1); % Monocytes 3.4 % (1.7-9.3); % Neutrophils 91.5 % (42.2-75.2); Absolute Immature Granulocytes 0.1 10^3/uL (0-0.05); Absolute Lymphocytes 0.5 10^3/uL (1.2-3.4); Absolute Monocytes 0.4 10^3/uL (0.1-0.6); Hematocrit 45.5 % (37.0-47.0); Mean Corp Hgb Conc. 28.6 g/dL (33.0-37.0); Mean Corpuscular Volume 105.1 fL (81.0-99.0); Mean Platelet Volume 9.2 fL (7.4-10.4); Nucleated Red Blood Cells % 0 %; Platelet Count 173 10^3/uL (130-400); Red Blood Cell Count 4.33 10^6/uL (4.20-5.40); Red Cell Dist. Width 12.9 % (11.5-14.5)
[2024-04-12 18:13] LABS: COVID-19 Antigen Negative (Negative)
--- NOTE | 2024-04-12 18:13 | HPS.HSE ---
Family Physician
-
Family Physician: Allyssa Juarez DO
Chief Complaint
-
sob
cough
History of Present Illness
83-year-old female from [facility] h/o COPD, chronic home oxygen, A-fib, on Eliquis, CHF, HTN, HLD, pacemaker, GERD, chronic renal failure, anemia, depression presents for episode of unresponsiveness, hypotension, hypoxemia. patient stated sob
since last night, which was worsening with exertion. she was having dry cough and congested since then. son noticed a temp of 99 last night. patient denied JAMA, dizzy or syncope. denied chest pain. denied abdominal pain,n,v,d. denied dysuria
or hematuria. son found her very sick and no responding today, as he got there to pick her up for doctor office.
upon arrival he is requiring 4l of oxygen. concern for CHF exacerbation. she is also tested positive for Influenza A. Patient received Lasix and Tamiflu. Admitting for further management
Medical History
Past Medical History
Past Medical History: Reports Other
Additional Past Medical History:
Gastric ulcer
Pulmonary emphysema
Fall
Hypertension
Iron deficiency anemia
Gastritis
Orthostatic hypotension
Coronary artery disease
CKD
Type 2 diabetes
Asthma
Pleural effusion
Diverticulosis
CHF
Hyperparathyroidism
Skin cancer
DVT
COPD
A flutter
Sick sinus syndrome
Anxiety
Depression
Past Surgical History: Reports Other
Additional Past Surgical History:
Cholecystectomy
Appendectomy
Mitral valve repair
Right eye surgery
Carpal tunnel surgery
Cardiac stents
Pacemaker implant
Social History
Tobacco: Former Smoker
Alcohol: None
Drug: None
Personal: Single
Living: Assisted Living
Family History
Family History: Not pertinent
Allergies / Home Medications
Allergies reflects when Allergies were last updated in [facility].
Home Medications with original date entered in [facility]
Allergy/Medication List:
Allergies
Allergy/AdvReac Type Severity Reaction Status Date / Time
No Known Allergies Allergy Verified 04/12/24 17:04
Home Medications
dapagliflozin propanediol 10 mg tablet (Farxiga) 10 mg PO DAILY Kidney Disease 01/30/22
omeprazole 20 mg capsule,delayed release 20 mg PO DAILY Gastrointestinal issue 07/14/22
bumetanide 2 mg tablet 2 mg PO DAILY Fluid retention/Swelling #0 tabs 07/18/22
ferrous sulfate 325 mg (65 mg iron) tablet 325 mg PO DAILY Supplement 08/14/22
fluticasone fur. 100 mcg-umeclid 62.5 mcg-vilant 25 mcg inhalat.powder (Trelegy Ellipta) 1 inh inhalation R DAILY Lung/Breathing Issues 10/16/22
polyethylene glycol 3350 17 gram oral powder packet 17 g PO DAILY Constipation 10/16/22
acetaminophen 325 mg tablet 650 mg (2 x 325 mg) PO Q4HPRN PRN mild pain/JAMA/temp> 100.4F #0 tabs 10/21/22
apixaban 2.5 mg tablet (Eliquis) 2.5 mg PO BID Blood clot prevention/tx 08/24/23
duloxetine 30 mg capsule,delayed release 30 mg PO HS 08/24/23
metoprolol tartrate 25 mg tablet 12.5 mg PO BID Heart Failure 08/24/23
atorvastatin 20 mg tablet (Lipitor) 20 mg PO DAILY 04/12/24
ensifentrine 3 mg/2.5 mL suspension for nebulization (Ohtuvayre) 3 mg inhalation R BID 04/12/24
Review of Systems
-
Constitutional: Reports Fatigue
EENT: Reports No Symptoms
Respiratory: Reports Cough and Trouble Breathing
Cardiac: Reports No Symptoms
Abdomen/GI: Reports No Symptoms
: Reports No Symptoms
Musculoskeletal: Reports Edema
Skin: Reports No Symptoms
Neurological: Reports No Symptoms
Endocrine: Reports No Symptoms
Hematologic/Lymphatic: Reports No Symptoms
Psych: Reports No Symptoms
Physical Exam
Vital Signs
Vital Signs
Temp Pulse Resp BP Pulse Ox
98.1 F 69 24 113/72 96
04/12/24 17:04 04/12/24 18:00 04/12/24 18:00 04/12/24 18:00 04/12/24 18:00
Physical Exam
General: Well Developed, Well Nourished and No Apparent Distress
HEENT: NormoCephalic, Moist mucous membranes and Atraumatic
Respiratory: Decreased Breath Sounds
Cardiac: S1/S2 and Regular Rhythm; No Murmur or Rub
GI: Soft, Non Tender, Non Distended and Normal Bowel Sounds; No Organomegaly
Rectal: Deferred by Provider
Musculoskeletal: No Clubbing, No Cyanosis and Other (Lower extremities +1)
Skin: No Rash
Neuro: AO x 3 and Nonfocal/grossly intact
Psych: Calm
Laboratory Results
-
04/12/24 17:17
04/12/24 17:17
Laboratory Results
Total Bilirubin 1.2 mg/dl (0.2-1.3) 04/12/24 17:17
AST 108 U/L (14-36) H 04/12/24 17:17
ALT 49 U/L (0-35) H 04/12/24 17:17
Alkaline Phosphatase 67 U/L (38-126) 04/12/24 17:17
Troponin I 0.094 ng/ml H* 04/12/24 17:17
Data Reviewed
-
Diagnostic Radiology: Report Reviewed by me
Lab Data: Labs Reviewed by me
Impression/Plan
-
# Acute respiratory failure likely multifactorial
-Patient requiring 4 L of oxygen, uses 2 L at baseline
-Continue supplemental oxygen to keep sat greater than 92,wean as tolerated
# COPD exacerbation
-Solu-Medrol continued
-Nebs as needed for short of breath and wheezing
# Possible CHF exacerbation
-BNP 17 700
-COVID-negative
-Chest x-ray with impression of Low lung volumes. Generalized prominence of bronchovascular markings and interstitial markings. Possibly, in part, artifactual. However, this may also be related to mild vascular congestion and interstitial edema in
the proper clinical setting. No evidence of pneumonia.
-Patient requiring 4 L of oxygen uses 2 L at baseline,
-Continue supplemental oxygen to keep sat greater than 92
-Wean as tolerated
-IV Lasix continued
-Strict DARA
-Daily weight
-Fluid restriction
-Echo from 2022 with a EF of 55-60 percentage
#Influenza A
-WBC 12.0
-Tamiflu continued
# Hypernatremia likely hypervolemic
-Sodium 147
-Fluid restriction
-BMP in a.m.
# CKD stage 4
-Creatinine 2.1
-Continue to monitor
# Hepatic congestion
-AST 108, ALT 49
-Continue to monitor LFTs
# Trop elevation likely NSTEMI setting of CHF
-Trop 0.094
-Patient denied chest pain
-Continue to trend Trope
-Obtain EKG
#anemia of iron def
-monitor
-no active bleeding
-ferrous sulfate continued
#type 2 Dm
-Farxiga held
-sliding scale
-CHO diet
# History of a flutter
-Eliquis continued
-Metoprolol continued
# History of sinus syndrome/symptomatic bradycardia
-Patient has dual chamber pacemaker
#CAD-PCI 07/2015
#HLD--Continue Lipitor 20 mg at bedtime
#Anxiety-Continue Xanax 0.25 mg every 6 hours as needed, continue duloxetine
#DVT prophylaxis--Continue Eliquis
#code status -- FULL CODE
[2024-04-12] MEDS: LASIX 40 MG IV (18:27)
--- NOTE | 2024-04-12 19:02 | W.PN.UPDATE ---
Update Note
Progress Note Update
Patient seen in conjunction with TRUCK TRAILER FINAL INSPECTOR. I agree with the findings and physical as well as the assessment and plan unless stated otherwise.
Briefly, this is a 83-year-old female with past medical history that is significant for CAD status post multiple stents, atrial fibrillation, status post pacemaker, mitral valve repair 2006, COPD on 2 L home O2, mpf-beruyzs-qpafsnlds diabetes, seems
to have CHF with preserved EF and no significant pulmonary pretension despite COPD presenting to the emergency department with worsening shortness of breath and and lethargy.
Patient reported that she has been having trouble breathing since around . She did see a physician on and mentioned the breathing difficulties. Son reports very mild worsening of her cough. Low-grade temperatures at home.
However she has been very very lethargic and. She wakes up speaks for a few minutes and goes right back to sleep. They do not know of any sick contacts. Denied any significant changes in the lower extremity edema. She denied having any
palpitations. She states she does not have chest pain. Reports otherwise been compliant with her medications including anticoagulation.
On arrival in the emergency department she was afebrile with a temp of 98.1, blood pressure was initially 88/60.9 111/57 with a pulse of 67. She is on 4 L satting 96%. Troponin was 0.09, BNP was 17,000.
Pacemaker interrogated no acute events. ECG is nonischemic. Chest x-ray Low lung volumes. Generalized prominence of bronchovascular markings and interstitial markings. Possibly, in part, artifactual. However, this may also be related to mild
vascular congestion and interstitial edema in the proper clinical setting. No evidence of pneumonia.
CBC shows a white count of 12,000 hemoglobin 13 and platelet 173, electrolytes are stable with a bicarb of 39, BUN and creatinine at 51 and 2.1 respectively. Slight increase from baseline creatinine of 1.8. COVID test negative. Influenza positive.
On my examination patient has extensive wheezing throughout the lung lott. She is moving some here but has decreased breath sounds. Did not auscultate any crackles. She has increased work of breathing with a respiratory rate in the 20s. No
significant JVD. Cardiac auscultation was unremarkable. She does have about 1-2+ pitting edema at the feet and 1+ at the lower shins bilaterally.
I suspect presentation is secondary to acute to influenza complicated by COPD. There may be mild contribution with mild to CHF exacerbation. I suspect the troponin elevation is secondary to her acute pulmonary symptoms and not primary obstructive
NSTEMI.
Assessment and plan -83-year-old female with acute influenza complicated by COPD as well as mild CHF exacerbation. No evidence of pneumonia on the x-ray. She is afebrile at this time.
Respiratory distress
� Will admitted to IMU
-Given severity of illness will continue Tamiflu renal dose
-Stat steroids 125 mg Solu-Medrol now and then 40 mg IV every 12
-Will give 2 rounds of DuoNebs now, continue with DuoNebs every 6 standing and every 3 as needed
-Check procalcitonin
-Check VBG, if pH okay does not need BiPAP at this time
-
CHF -no marked fluid overload on exam or x-ray. Mild nonischemic myocardial injury.
-Continue with Lasix 40 mg IV daily for now with daily weights and ins and outs
-Will get an echocardiogram in the morning
-Cardiology consult
-Trend troponin
-Continue Eliquis for now unless troponin markedly elevated
AFIB
- rate controled, continue metoprolol
- continue eliquis
Transaminitis
- suspect secondary to influenza vs congestion, trend for now
- check RUQ u/s
CKD - Mild dread on ckd
- given chf, no iv fluids
- treat underlying illness
- avoid nephrotoxins
DVT PPX - on eliquis
Code status - Full Code
[2024-04-12] MEDS: TAMIFLU 30 MG PO (19:46)
[2024-04-12] MEDS: SOLU-MEDROL PF 125 MG IV (19:47)
[2024-04-12] MEDS: DUONEB 3 ML INH (20:10)
[2024-04-12] MEDS: ELIQUIS 2.5 MG PO (21:22)
[2024-04-12] MEDS: CYMBALTA DELAYED RELEASE 30 MG PO (21:22)
[2024-04-12] MEDS: LOPRESSOR 12.5 MG PO (21:22)
[2024-04-12 21:38] LABS: Glucose - Point of Care 84 mg/dl (70-99)
[2024-04-12 21:47] LABS: Venous Blood Gas B.E. 11.2 mmol/L (-4 to +4); Venous Blood Gas HCO3 42.5 mmol/L (22-27); Venous Blood Gas O2 Sat % 82.4 %; Venous Blood Gas pH 7.25 (7.32-7.43); Venous Blood Gas pO2 48 mmHg (30-50)
[2024-04-12 21:49] LABS: Venous Blood Gas pCO2 97 mmHg (35-48)
[2024-04-12 22:15] LABS: Troponin I 0.189 ng/ml
[2024-04-12 22:23] LABS: Procalcitonin 1.97 ng/ml (0.0-0.25)
--- NOTE | 2024-04-12 22:45 | PTCARENOTE ---
Addendum entered by Shashank Mcpherson RN 04/13/24 00:06:
Pt was upgraded to IMU status and transfer to ICU. Report given to RN and transferred.
Original Note:
Pt admitted to 4E. Pt AAOx3, forgetful at times, drowsy and general weakness. Pt NSR w/ BBB. Lung sounds are crackled and diminished with a occasional productive cough. SaO2 98% 5L. PRINTED CIRCUIT BOARDS SOLDER LEVELER notified about venous blood gas. Abd round. Pt has MASD under
the breast. Call fitch within reach and bed alarm in place. Purewick in place.
--- NOTE | 2024-04-12 23:23 | W.PN.UPDATE ---
Update Note
Progress Note Update
Received VBG results pH 7.25, pCO2 97, pO2 48, HCO3 42.5, o2 sat 82.4%, shows respiratory acidosis. Patient evaluated, lethargic but easily arousable. Patient does report SOB and increased work of breathing. Accessory muscle use noted during exam.
Ordered Bipap 12/5 w/supplemental O2 as required. Repeat ABG in 2 hours. Will transfer patient to IMU, nursing correctional supply supervisor aware and assisting with transfer.
[2024-04-13] VITALS (60 sets, daily range): BP systolic 55–151; BP diastolic 31–75; PULSE 2–89; BMI 27.0
--- NOTE | 2024-04-13 00:25 | PTCARENOTE ---
Received pt from [facility]. Pt upgraded due to continuous bipap. Patient comes over at 12/5 6L. Patient AOx3, vital signs obtained, pt assessed, see flow sheets. Per BUSINESS INSTRUCTOR, draw BC x2, IV abx ordered. Call fitch within reach. Will continue to monitor.
[2024-04-13] MEDS: MAXIPIME 1000 MG IV ×3 (00:30→23:23)
[2024-04-13] MEDS: STERILE WATER FOR INJECTION 10 ML IV ×3 (00:31→23:23)
[2024-04-13] MEDS: VANCOCIN 530 MG IV (00:33)
[2024-04-13 02:28] LABS: B.E. 9.3 mmol/L; O2 Saturation % 96.3 % (94-98); PO2 70 mmHg (83-108); pH 7.24 (7.35-7.45)
--- NOTE | 2024-04-13 02:30 | PTCARENOTE ---
Patients repeat ABG showing 7.24/94/70/40.3 so2 96.3. Pts oxygen saturation anywhere from 85-90%, o2 on bipap already increased to 10L. Pt with increased WOB as well. METAL CEILING BUILDER to bedside to evaluate. Critical care METAL CEILING BUILDER bedside as well, recommending to
intubate. Patient unsure if she wants to be intubated, granddaughter who is POA agreeing to intubation. Prepping patient, placing second peripheral IV. Anesthesia notified.
--- NOTE | 2024-04-13 02:40 | PTCARENOTE ---
Pt intubated. NG tube placed in right nare to LIS. Nayak placed as well. Levo and propofol initiated. Running through new ultrasound guided peripheral IV. Granddaughter bedside and updated. Will continue to monitor.
[2024-04-13] MEDS: DIPRIVAN 1.9 IV (03:00)
--- NOTE | 2024-04-13 03:09 | W.PN.UPDATE ---
Update Note
Progress Note Update
-Patient transferred to IMU on Bipap,
-Procalcitonin level 1.97 discussed with the admitting physician
-Blood culturesx2, urinalysis, strep Pneumonia antigen, cefepime and vanco start and ID consult placed.
-Patient continue to desatting with increased of o2 needs while on Bipap
-Repeated abg (ph7.24, pco2 94,po270, sgr536.3) patient is using the accessory muscles with increasing WOB.
-Patient is full code discussed with the patient and granddaughter/ Keri over the phone regarding intubation and agreed.
-Case discussed with the admitting physician and patient transferred to ICU level.
[2024-04-13 03:10] LABS: HCO3 40.3 mmol/L (21-28); PCO2 94 mmHg (32-35)
[2024-04-13 03:49] LABS: B.E. 7.2 mmol/L; HCO3 31.2 mmol/L (21-28); O2 Saturation % 99.8 % (94-98); PCO2 41 mmHg (32-35); PO2 143 mmHg (83-108); pH 7.49 (7.35-7.45)
[2024-04-13 04:31] LABS: Hematocrit 40.9 % (37.0-47.0); Hemoglobin 12.4 g/dL (12.0-16.0); Mean Corp Hgb Conc. 30.3 g/dL (33.0-37.0); Mean Corpuscular Hgb 30.5 pg (27.0-31.0); Mean Corpuscular Volume 100.5 fL (81.0-99.0); Mean Platelet Volume 9.9 fL (7.4-10.4); Platelet Count 212 10^3/uL (130-400); Red Blood Cell Count 4.07 10^6/uL (4.20-5.40); Red Cell Dist. Width 13.2 % (11.5-14.5); White Blood Cell Count 22.2 10^3/uL (4.8-10.8)
[2024-04-13 04:39] LABS: ALT (SGPT) 42 U/L (0-35); AST (SGOT) 58 U/L (14-36); Albumin 3.7 g/dl (3.5-5.0); Alkaline Phosphatase 76 U/L (38-126); Blood Urea Nitrogen 64 mg/dl (7-17); Calcium 9.8 mg/dl (8.4-10.2); Carbon Dioxide 34 mmol/L (22-30); Chloride 101 mmol/L (98-107); Direct Bilirubin 0.4 mg/dl (0.0-0.4); Estimated Creatinine Clearance 16 ml/min; Glucose 116 mg/dl (70-99); HDL Cholesterol 41 mg/dl; LDL Cholesterol, Calculated 86 mg/dl; Magnesium 2.1 mg/dl (1.6-2.3); Potassium 4.7 mmol/L (3.5-5.1); Sodium 146 mmol/L (135-145); Total Bilirubin 1.2 mg/dl (0.2-1.3); Total Cholesterol 150 mg/dl (50-199); Total Protein 6.6 g/dl (6.3-8.2); Triglyceride 119 mg/dl (10-149); Very Low Density Lipoprotein 23 mg/dl (0-30); eGFR 21.57
[2024-04-13 04:51] LABS: Troponin I 0.362 ng/ml
--- NOTE | 2024-04-13 04:56 | DOWNTIME ---
There was a [employer] Client Sound Effects Manager Downtime on 04/13/2024 from 0100 to 04/13/2023 at 0235 . Downtime documentation of patient's care, including medication administrations, has been reconciled in the electronic record per guidelines. Refer to the
patient's paper chart under the miscellaneous tab to see printed paper medication records and downtime forms.
--- NOTE | 2024-04-13 05:00 | PTCARENOTE ---
SPIRITUAL ADVISOR placed right radial a-line. Bed leveled and a-line zeroed. Matching cuff pressures.
[2024-04-13 05:08] LABS: TSH Reflex To Free T4 0.39 uIU/ml (0.47-4.68)
--- NOTE | 2024-04-13 05:26 | W.PN.UPDATE ---
Update Note
Progress Note Update
Right Wrist Arrow 20 (04/26)�
Diagnosis:��Acute respiratory failure due to FLU A
IV Line Comments: Uneventful Procedure�
Norberto's test completed pre-procedure: Yes�
A-Line Comments: Sterile technique as per standard protocol, Ultrasound guided insertion�
Functioning A-line in situ: Yes�
A-line Insertion Start Time:��0500
A-line in at:��0515
[2024-04-13 05:38] LABS: Free T4 1.88 ng/dl (0.78-2.19)
[2024-04-13] MEDS: LEVOPHED 250 IV ×2 (05:57→13:56)
[2024-04-13] MEDS: NOVOLOG FLEXPEN-LOW RESISTANCE SC (07:14)
--- NOTE | 2024-04-13 07:16 | W.PN.ANESINT ---
Anesthesia Intubation Note
- Intubation Note
Intubation Note:
Diagnosis: respiratory distress
Blade: MAC 4
Tube Size: 8.0 cm
Depth: 20 cm
Side Taped: right
Drugs Used: Propofol 60 mg / Rocuronium 50 mg & phenylephrine 300 mcg & levophed 24 mg post intubation
Grade View: I
EtCO2 Present: +
Atraumatic: yes
Attempts: 1
Insertion Start and Stop Time:
SaO2 Pre: 84
SaO2 Post: 92
Glidescope Used: yes
Other Airway Adjustments:
Pre-Oxygenated: yes
Portable Chest X-Ray: to follow
RSI: no
Suctioned: no
Bilateral Breath Sounds Confirmed: yes
Vent Settings:
Settings per _X__Attending Physician
--- NOTE | 2024-04-13 07:17 | CON.INTV ---
Consultation
Consultation Request
Date/Time Consultation Requested: 04/12/24
Date/Time Consultation Performed: 04/12/24
Performing Provider: Ananda
Reason for Consultation: ICU
Medical History
-
History of Present Illness:
Patient is an 83-year-old female with history of COPD (on outpatient palliative care), Afib on Eliquis, CHF, HTN, HLD, pacemaker, CKD presenting to ER from [facility] for unresponsiveness, hypotension, hypoxemia. Patient was reportedly SOB since
last 04/07/24. In ER, patient is on 4L NC, tested positive for Flu A. CXR showing diffuse interstitial process. Initial ABG showing , placed on BIPAP and admitted to IMU. Developed worsening MS, SOB--repeat ABG , decision
make for intubation and transfer to ICU.
Past Medical History
Past Medical History: Other
Social History
Tobacco: Former Smoker
Alcohol: None
Drug: None
Family History
Family History: Reviewed & Not Pertinent
Allergies / Home Medications
Allergies
Allergy/AdvReac Type Severity Reaction Status Date / Time
No Known Allergies Allergy Verified 04/12/24 17:04
Home Medications
�Medication �Instructions �Recorded �Confirmed �Last Taken �Type
dapagliflozin propanediol 10 mg 10 mg PO DAILY Kidney Disease 01/30/22 04/12/24 08/24/23 09:00 History
tablet (Farxiga)
omeprazole 20 mg capsule,delayed 20 mg PO DAILY Gastrointestinal 07/14/22 04/12/24 08/24/23 07:00 History
release issue
bumetanide 2 mg tablet 2 mg PO DAILY Fluid 07/18/22 04/12/24 08/24/23 09:00 Rx
retention/Swelling #0 tabs
ferrous sulfate 325 mg (65 mg 325 mg PO DAILY Supplement 08/14/22 04/12/24 08/24/23 09:00 History
iron) tablet
fluticasone fur. 100 mcg-umeclid 1 inh inhalation R DAILY 10/16/22 04/12/24 10/15/22 History
62.5 mcg-vilant 25 mcg Lung/Breathing Issues
inhalat.powder (Trelegy Ellipta)
polyethylene glycol 3350 17 gram 17 g PO DAILY Constipation 10/16/22 04/12/24 08/24/23 09:00 History
oral powder packet
acetaminophen 325 mg tablet 650 mg (2 x 325 mg) PO Q4HPRN PRN 10/21/22 04/12/24 Unknown Rx
mild pain/JAMA/temp> 100.4F #0 tabs
apixaban 2.5 mg tablet (Eliquis) 2.5 mg PO BID Blood clot 08/24/23 04/12/24 08/24/23 17:00 History
prevention/tx
duloxetine 30 mg capsule,delayed 30 mg PO HS 08/24/23 04/12/24 08/23/23 21:00 History
release
metoprolol tartrate 25 mg tablet 12.5 mg PO BID Heart Failure 08/24/23 04/12/24 08/24/23 17:00 History
atorvastatin 20 mg tablet (Lipitor) 20 mg PO DAILY 04/12/24 04/12/24 Unknown History
ensifentrine 3 mg/2.5 mL 3 mg inhalation R BID 04/12/24 04/12/24 Unknown History
suspension for nebulization
(Ohtuvayre)
Review of Systems
-
Unable to Obtain full review of systems at this time due to: Patient Intubation
Vitals / Labs / Diagnostic Testing
Vital Signs
Temp Pulse Resp BP Pulse Ox
98.2 F 70 18 116/57 97
04/13/24 02:00 04/13/24 06:30 04/13/24 06:30 04/13/24 06:30 04/13/24 06:30
Lab Data
04/13/24 03:56
04/13/24 03:56
Laboratory Results
04/13/24 04/13/24 04/13/24
01:27 03:21 03:35
pH 7.24 L Cancelled 7.49 H
pCO2 94 H* Cancelled 41 H
pO2 70 L Cancelled 143 H
HCO3 40.3 H* Cancelled 31.2 H
O2 Delivery Level Not Reportable Cancelled Not Reportable
Microbiology
04/12/24 17:46 Nasal Swab Influenza Types A & B (MICHELE) - Final
Influenza A Positive, NAAT
Diagnostic Testing:
Physical Exam
-
HEENT: Normocephalic, Anicteric and Moist Mucous Membranes
Cardiovascular: S1/S2, Regular Rhythm and Murmur
Respiratory: Clear, Non-Labored Respirations and Other (ETT.)
GI: Soft, Non Distended and Non Tender
Neurology: Other (sedated/intubated)
Skin: Warm and Dry
General: Comfortable and Other (NAD)
Assessment
-
Patient is an 83-year-old female with history of COPD (on outpatient palliative care), Afib on Eliquis, CHF, HTN, HLD, pacemaker, CKD presenting to ER from [facility] for unresponsiveness, hypotension, hypoxemia. Patient was reportedly SOB since
last 04/07/24. In ER, patient is on 4L NC, tested positive for Flu A. CXR showing diffuse interstitial process. Initial ABG showing 7., placed on BIPAP and admitted to IMU. Developed worsening MS, SOB--repeat ABG , decision
make for intubation and transfer to ICU.
Acute hypercarbic respiratory failure s/p intubation
Acute influenza illness
SOB
Unresponsiveness
Severe COPD, chronic hypoxemia on 2L, on OP pall care
Septic shock on pressors
Conditions present prior to admission
hypertension
type 2 diabetes
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
follows with Dr Kim
maintained on Trelegy 100 1 puff daily
On pall care w/ Dr Cullen
PELON, not on CPAP >10 years
R pleural effusion, chronic
vitamin b12 deficiency
depression
Hx falls
CAD s/p CABG hx VT; hx cardiac stents 07/2015
Mitral valve repair 2006
CKD stage 4
iron deficiency anemia
Afib/atrial flutter
orthostatic hypotension
hay-Fever
GERD
Rheumatoid Arthritis
HFpEF
hx COVID with residual ageusia
SSS with bifascicular block s/p PPM
L non-occlusive subclavian DVT 11/03/2022
R renal mass
X3
cholecystectomy
appendectomy
right eye surgery- retina repair
carpal tunnel surgery -left arm
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
DH hypercalcemia and UTI 05/2022
DH GIB 2/2 gastric ulcer 01/30/2022
Plan
Lethargic, but on sedation
Somnolence s/p intubation
Pain/sedation: wean sedation as tolerated
RASS goals: 0
Hemodynamically unstable, requiring pressors.
Requiring pressors: levo @4, weaning down
Cardiac history reviewed--HTN, HFpEF, Afib, CAD
Prior ECHO reviewed indicating normal function, mild VHD
Hold home meds while hypotensive
Monitor on telemetry
Intubated for hypercarbia
Vent setting reviewed: AC 400/18/40/5
Prior history of lung disease: severe COPD on home O2, on pall care
She is full code, will need to discuss GOC with family
Supplemental O2 as indicated to maintain sats > 89%
CXR/CT reviewed indicating NAD, repeat PRN
SBT planning
NPO, resume diet when able
Industrial Electrician Journeyman recommendations
Aspiration precautions, HOB > 30 degrees
Speech therapy eval can be considered if at elevated risk
GI prophylaxis if indicated for mechanical ventilation >48 hours, prior history of GERD, stress ulcer formation in the critically ill
Creat baseline, 1.8-- now 2.2
History of renal disease/CKD IV
Void trials
Follow urine output, critical I/Os
Replete electrolytes as needed
Fever and increased WBC on presentation, Flu positive on isolation
PCT 1.97, r/o superimposed bacterial PNA
Started on empiric antibiotics
Cultures sent/pending
Follow fever trend, WBC count
CBC stable, no signs of bleeding or coagulopathy.
DVT prophylaxis as assessed based on risk, including mechanical SCDs
Can transfuse if indicated for Hb <7, plt < 10
No prior h/o diabetes or thyroid disease
Monitor accuchecks PRN/SS coverage if needed
We will follow
Diagnostic Data
Chest X-Ray: 04/12/24- Low lung volumes. Generalized prominence of bronchovascular markings and interstitial markings. Possibly, in part, artifactual. However, this may also be related to mild vascular congestion and interstitial edema in the proper
clinical setting. No evidence of pneumonia.
05/24/23- No acute cardiopulmonary process.
CT Scan:
Echo: 10/20/22- Normal biventricular size and systolic function without regional wall motion abnormality. Estimated LVEF 55-60%. Moderate concentric left ventricular hypertrophy. S/p mitral valve repair. Mean gradient 5-6 mmHg. Mild mitral
regurgitation. Aortic sclerosis without stenosis. Mild/moderate tricuspid regurgitation. Normal PASP.
PFT's:
Reports and relevant images were personally reviewed.
Critical Care time 75 mins -- The patient is admitted for acute critical illness for the treatment of vital organ failure and/or prevention of further life-threatening conditions. Total care includes time spent in review of history, physical exam,
medications, hemodynamic/ventilator parameters, laboratory data, imaging and discussion with house staff, pharmacy, respiratory therapy, bookmobile librarian, and nursing.
[2024-04-13 08:02] LABS: Glucose - Point of Care 138 mg/dl (70-99)
[2024-04-13] MEDS: DUONEB 3 ML INH ×4 (08:07→20:28)
[2024-04-13] MEDS: SYMBICORT 80/4.5 MCG INHALER 2 PUFF INH (08:07)
[2024-04-13] MEDS: DESENEX/MITRAZOL/ZEASORB 1 APPLIC TOPICAL ×2 (08:34→20:08)
[2024-04-13] MEDS: PROTONIX IV 40 MG IV (08:35)
[2024-04-13] MEDS: SOLU-MEDROL PF 40 MG IV ×2 (08:35→20:08)
[2024-04-13] MEDS: NSS (PRESERVATIVE FREE) 10 ML IV (08:35)
[2024-04-13] MEDS: LOPRESSOR 12.5 MG PO ×2 (08:35→20:07)
[2024-04-13] MEDS: FEOSOL 325 MG PO (08:35)
[2024-04-13] MEDS: LIPITOR 20 MG PO (08:35)
[2024-04-13] MEDS: MIRALAX 17 GRAMS PO (08:36)
[2024-04-13] MEDS: LASIX 40 MG IV (08:36)
[2024-04-13 09:05] LABS: APTT 34.9 Sec (23.4-35.0)
--- NOTE | 2024-04-13 09:07 | W.PN.HOSP.TC ---
Addendum entered and electronically signed by Arjun Robles MD 04/13/24 09:11:
#Subclinical hyperthyroidism
Repeat TFT in 2-3 weeks if recovery
Original Note:
Today's Communication/Plan
-
See PN
Assessment / Plan
Assessment / Plan
83yo F with PMHX of HLD, HTN, GERD, COPD, b/l renal masses, [place], SSS s/p PPM, A.flutter, CAD s/p PCI, HFpEF, Hx of MV repair, Hx of CVT, CKD, Hx of GIB brought with worsening lethargy, found influenza A and COPD exacerbation with hypercarbuia, was
intubated overnight on 04/13/24, developed septic shock most likely 2/2 viral pneumonia, cannot exclude bacrterial component.
A/P:
#Septic shock 2/2 Influenza A cannot exclude bacterial pneumonia
#Acute hypoxic hypercarbic respiratory failure 2/2 COPD exacerbation
Vanco/Cefepime
Tamiflu
Vent and pressor mgmt as per industrial energy engineer
Taper steroids
cont bronchodilators
sputum Cx
Bcx NTD
#Acute on chronic HFpEF exacerbation
#Troponin elevation most likely 2/2 shock and hypoxia, cannot exclude NSTEMI
#A.flutter
#SSS s/p PPM
Echo
Lasix as BP tolerates
FOllow Cr and electrolytes
Serial troponin
EKG without overt ST elevation
ASA, statin, BB
Heparin drip
#GERD
#Hx of GIB
#[place]
#HLD
cont home meds upon d/c
follow CBC in hospital
check B112 and folate
#CKD stage 4 with hypernatremia
follow Cr, Na
#b/l renal masses
recent MRI shoed increase in size
Reportedly was on palliative care approach at home
COnt follow clinical progress and discuss appropriate GOC with family
#Transaminiutis
2/2 shock
follow LFT
DVT ppx heparin
Full code
I have spent at least 70min of critical care time reviewing chart, test results, communication with consultants and direct patient care
Anticipated Discharge: > 48 hours
Subjective/Interval History
-
Date of Service: April 13, 2024
Objective Data
-
Labs:
Laboratory Results
04/13/24 04/13/24 04/13/24
01:27 03:21 03:35
WBC
Hgb
Hct
Plt Count
APTT
HCO3 40.3 H* Cancelled 31.2 H
Sodium
Potassium
Chloride
Carbon Dioxide
BUN
Creatinine
Glucose
Calcium
Total Bilirubin
AST
ALT
Alkaline Phosphatase
04/13/24 04/13/24
03:56 08:47
WBC 22.2 H
Hgb 12.4
Hct 40.9
Plt Count 212 D
APTT 34.9
HCO3
Sodium 146 H
Potassium 4.7
Chloride 101
Carbon Dioxide 34 H
BUN 64 H
Creatinine 2.2 H
Glucose 116 H
Calcium 9.8
Total Bilirubin 1.2
AST 58 H
ALT 42 H
Alkaline Phosphatase 76
Vital Signs:
Vital Signs
Temp Pulse Resp BP Pulse Ox
98.8 F 74 22 134/60 99
04/13/24 07:28 04/13/24 08:36 04/13/24 08:25 04/13/24 08:36 04/13/24 08:26
I&O
04/12/24 04/13/24 04/14/24
06:59 06:59 06:59
Output Total 225 / 225
Balance -225 / -225
Review of Systems
-
Unable to obtain full review of systems at this time due to: Patient Intubation
Physical Exam
-
General: No Apparent Distress
HEENT: Atraumatic
Respiratory: Wheezes
Cardiac: Regular Rhythm
GI: Soft, Nontender and Nondistended
Musculoskeletal: No Clubbing, No Cyanosis and No Edema
Skin: Warm
Neuro: Sedated
--- NOTE | 2024-04-13 09:39 | PHA.VAN.IN ---
Assessment
- Assessment
Renal Function: Appears similar to baseline (CKD at baseline, SCr 2.2)
Maximum Temperature: 99.6
Concomitant Antimicrobials: oseltamivir, cefepime
Plan
- Plan
Initial / Loading Dose: 1500 mg (24 mg/kg) 04/13 00:33
Maintenance Regimen: dose by level
Monitoring: random 04/14 am
MRSA Screen: Ordered per protocol
Pharmacokinetics Vancomycin I
- -
Patient Age: 83
Patient Sex: Female
Vancomycin Day #: 1
Indication: Pulmonary/Respiratory
Requesting Provider: ARIELLE Licona
Pertinent Antimicrobial Allergies:
no known allergies
Height / Weight:
Height 5 ft
Actual Weight 62.7 kg
Pertinent Past Medical History: Influenza A positive, B/L renal massess, CKD
- Vital Signs / Lab Results
Temp Pulse Resp BP Pulse Ox
98.8 F 73 19 110/55 98
04/13/24 07:28 04/13/24 09:20 04/13/24 09:20 04/13/24 09:20 04/13/24 09:20
Lab Results - Hematology
04/12/24 04/13/24
17:17 03:56
WBC 12.0 H 22.2 H
Lab Results - Chemistry
04/12/24 04/13/24
17:17 03:56
BUN 51 H 64 H
Creatinine 2.1 H 2.2 H
Estimated Creat Clear 17 16
Albumin 4.2 3.7
Microbiology Results
04/13/24 03:56 Streptococcus pneumoniae Antigen (M - Final
Urine Negative for Streptococcus pneumoniae antigen.
A negative result does not exclude infection with
Streptococcus pneumoniae. Clinical correlation is
recommended.
04/12/24 17:46 Influenza Types A & B (MICHELE) - Final
Nasal Swab Influenza A Positive, NAAT
[2024-04-13 09:45] LABS: Glycohemoglobin (HgbA1c) 5.5 % (4.0-5.6)
--- NOTE | 2024-04-13 10:30 | CON.CAR ---
Consultation
Consultation Request
Date/Time Consultation Requested: 04/13/24 9 AM
Date/Time Consultation Performed: 04/13/2024 1030
Requesting Provider: Hospitalist
Performing Provider: Dr. Vega
Reason for Consultation: CHF
Medical History
-
History of Present Illness:
Primary tennis director Dr. Tubbs
83-year-old woman with past medical history mitral valve repair, atrial flutter, heart failure preserved ejection fraction, chronic anticoagulation, pacemaker, O2 dependent COPD, orthostatic hypotension and CKD who apparently presented with an
episode of unresponsiveness, hypotension and hypoxemia. Patient has been short of breath for the last 5 days. Worsening shortness of breath with exertion. Dry cough and congestion reported.
On presentation patient was requiring 4 L of oxygen there was concern for CHF exacerbation. Patient also tested positive for influenza A
Patient initially admitted to the IMU and then had further respiratory decompensation requiring intubation and now is admitted to the ICU
Past medical history
Heart failure with preserved ejection fraction
Coronary artery disease with history of coronary stenting 2015
Mitral valve repair
Atrial flutter.
Pacemaker
Chronic anticoagulation with Eliquis
Type 2 diabete
bifascicular block
CKD
orthostatic hypotension
PUD
COPD
Anemia
Depression
Cholecystectomy appendectomy
Hyperparathyroidism
History of DVT
Past Medical History
Past Medical History: Other (As noted above)
Allergies / Home Medications
Allergy/AdvReac Type Severity Reaction Status Date / Time
No Known Allergies Allergy Verified 04/12/24 17:04
�Medication �Instructions �Recorded �Confirmed �Type
dapagliflozin propanediol 10 mg 10 mg PO DAILY Kidney Disease 01/30/22 04/12/24 History
tablet (Farxiga)
omeprazole 20 mg capsule,delayed 20 mg PO DAILY Gastrointestinal 07/14/22 04/12/24 History
release issue
bumetanide 2 mg tablet 2 mg PO DAILY Fluid 07/18/22 04/12/24 Rx
retention/Swelling #0 tabs
ferrous sulfate 325 mg (65 mg 325 mg PO DAILY Supplement 08/14/22 04/12/24 History
iron) tablet
fluticasone fur. 100 mcg-umeclid 1 inh inhalation R DAILY 10/16/22 04/12/24 History
62.5 mcg-vilant 25 mcg Lung/Breathing Issues
inhalat.powder (Trelegy Ellipta)
polyethylene glycol 3350 17 gram 17 g PO DAILY Constipation 10/16/22 04/12/24 History
oral powder packet
acetaminophen 325 mg tablet 650 mg (2 x 325 mg) PO Q4HPRN PRN 10/21/22 04/12/24 Rx
mild pain/JAMA/temp> 100.4F #0 tabs
apixaban 2.5 mg tablet (Eliquis) 2.5 mg PO BID Blood clot 08/24/23 04/12/24 History
prevention/tx
duloxetine 30 mg capsule,delayed 30 mg PO HS 08/24/23 04/12/24 History
release
metoprolol tartrate 25 mg tablet 12.5 mg PO BID Heart Failure 08/24/23 04/12/24 History
atorvastatin 20 mg tablet (Lipitor) 20 mg PO DAILY 04/12/24 04/12/24 History
ensifentrine 3 mg/2.5 mL 3 mg inhalation R BID 04/12/24 04/12/24 History
suspension for nebulization
(Ohtuvayre)
Review of Systems
-
Unable to obtain full review of systems at this time due to: Patient Intubation
Physical Exam
Vital Signs
Temp Pulse Resp BP Pulse Ox
98.8 F 73 19 110/55 98
04/13/24 07:28 04/13/24 09:20 04/13/24 09:20 04/13/24 09:20 04/13/24 09:20
Lab Results
04/13/24 03:56
04/13/24 03:56
Troponin I Cancelled 04/13/24 04:00
Ans-Q-Fxjxzytntqz Pept 34573 pg/ml 04/12/24 17:17
Physical Exam
General: Intubated and Other
HEENT: Normocephalic and Anicteric
Respiratory: Other (Coarse vented breath sounds)
Cardiac: Regular Rhythm
GI: Soft and Other (No masses detected)
Musculoskeletal: No Clubbing, No Cyanosis and No Edema
Skin: Warm
Impression / Plan
-
VDRF
-Multiple factors may contribute. Patient has underlying O2 dependent COPD and now has influenza A. It is also possible that she has a component of acute on chronic heart failure with preserved ejection fraction. Patient has a history of heart
failure and has elevated proBNP. However with hypotension requiring pressors would be cautious with diuresis. Patient has already been given diuretic
-Continued optimization treatment of VDRF and COPD as directed by pulmonary/critical care team
-Treatment of influenza as directed by primary team and pulmonary critical care
-Monitor response to diuretic given.
-Await echo result pending
Influenza A. Treatment directed by primary team
Hypotension
-Patient on low-dose pressors which are being weaned
-Continue efforts to wean pressors off
-Hold on additional diuresis and then reassess need for diuretic in a.m.
-Await echo
.
Acute on chronic heart failure preserved ejection fraction
-Issues as noted above.
-Echocardiogram to reassess left ventricular function.
Abnormal troponin patient with known underlying coronary artery disease. Exact cause for troponin unclear could be non-[place] troponin versus type II [place] related to combination of respiratory failure, heart failure, hypoxemia and underlying CAD.
-Continue supportive treatment monitor troponin
-Aspirin
.
CAD/prior history of coronary stenting. Today's ECG without ischemic changes.
-Optimize respiratory status
-Continue medical therapy
-Follow troponins until trending down
-Echocardiogram later this admission
Atrial flutter. In sinus rhythm on this morning's ECG
-Eliquis being held
-Patient on IV heparin. Patient with some bloody secretions from ETT. Defer to pulmonary on when anticoagulation can be maintained
.
COPD.. Treatment directed by pulmonary
CKDAppears to have some acute on chronic with creatinine 2.2. Monitor closely with the above treatment
-Optimize blood pressure
-Hold on additional diuretic today. Reassess in a.m.
.
Anemia. Chronic. Monitor
Chest x-ray 04/12/2024 Low lung volumes. Generalized prominence of bronchovascular markings and interstitial markings. Possibly, in part, artifactual. However, this may also be related to mild vascular congestion and interstitial edema in the proper
clinical setting. No evidence of pneumonia.
Chest x-ray 04/13/2024 portable. Report suggests x-ray is without active pulmonary disease
Data Reviewed
-
EKG: Tracing Personally Visualized and interpreted and Report Reviewed by me
Radiology: Report Reviewed by me (Images reviewed as well) and Other
Medical Tests (Nuc Med, Echo etc): Report Reviewed by me
Labs: Labs Reviewed by me and Discussed with Nurse
[2024-04-13 10:46] LABS: Urine Albumin 3+ (Neg - Trace); Urine Bilirubin Negative (Negative); Urine Character Clear (Clear); Urine Color Yellow; Urine Glucose 3+ (Negative); Urine Ketone Negative (Negative); Urine Leukocyte Negative (Negative); Urine Nitrite Negative (Negative); Urine Occult Blood Negative (Negative); Urine Urobilinogen Negative (Neg - 1+)
[2024-04-13 10:48] LABS: Folate > 20.0 ng/ml (2.76-20); Vitamin B12 764 pg/ml (239-931)
[2024-04-13] MEDS: ASPIRIN 300 MG RECTAL (10:53)
[2024-04-13] MEDS: HEPARIN 25000 UNITS/250 ML IV (10:53)
--- NOTE | 2024-04-13 10:54 | CON.ID ---
Consultation
-
Date/Time Consultation Requested: 04/12/24 23:52
Date/Time Consultation Performed: 04/13/24 14:07
Requesting Provider: Dr Bobby
Performing Provider: Dr Neff
Reason for Consultation: abnormal procalcitonin
Chief Complaint / Past History
Chief Complaint
shortness of breath and cough
History of Present Illness
Ms Pena is an 83 year old female with history of COPD on 4L of O2, CHF, CKD who presented here last night from assisted living for shortness of breath, worse with exertion, cough and congestion. Son checked her temperature at home and found it to
be 99. She denied chest pain, abdominal pain, nausea, vomiting, diarrhea, and dysuria. Family report she is around dogs at the facility, no cat or birds.
Since arrival here she has been afebrile, bp hypotensive requiring pressors, wbc 12 now 22, hgb 12, plt 212, L shift noted, cr 2.2 baselien appears to be approximately 1.8, t bili 1.2, ast 108 now 58, alt 49 now 42, bnp [id number], procalcitonin 2 in the
setting of chronic renal failure, covid ag negative, CXR on arrival 04/12: no evidence of pneumonia, CXR today: ETT in place - no active CP disease, 04/12 flu A positive, currently on tamiflu, vanc and cefepime.
Past History
Additional Past Medical History:
Gastric ulcer
Pulmonary emphysema
Hypertension
Orthostatic hypotension
Coronary artery disease
CKD
Type 2 diabetes
Asthma
Pleural effusion
Diverticulosis
CHF
Hyperparathyroidism
Skin cancer
DVT
COPD
A flutter
Sick sinus syndrome
Anxiety/Depression
Additional Past Surgical History:
Cholecystectomy
Appendectomy
Mitral valve repair
Right eye surgery
Carpal tunnel surgery
Cardiac stents
Pacemaker implant
Allergy History:
No Known Allergies Allergy (Verified 04/12/24 17:04)
Medications Reviewed: Yes
Social History
Tobacco: Former Smoker
Alcohol: None
Drug: None
Family History
Family History: Not Pertinent
Review of Systems
Review of Systems
unable to obtain due to the condition of the patient
Vital Signs
Temp Pulse Resp BP Pulse Ox
98.8 F 73 19 110/55 98
04/13/24 07:28 04/13/24 09:20 04/13/24 09:20 04/13/24 09:20 04/13/24 09:20
Physical Exam
Physical Exam
Constitutional: No Acute Distress and Chronically Ill
Cardiovascular: Regular Rate and S1/S2; Negative Murmur or Rub
Pulmonary: Clear and Symmetric; Negative Wheezes, Rales or Rhonchi
Gastrointestinal: Soft, Non Tender, Non Distended and Normal Bowel Sounds
Skin: Warm and Dry; Negative Rash or Jaundice
Lab / Diagnostic Study Results
04/13/24 03:56
04/13/24 03:56
Abs Immat Gran (auto) 0.1 10^3/uL (0-0.05) H 04/12/24 17:17
Absolute Neuts (auto) 11.0 10^3/uL (1.4-6.5) H 04/12/24 17:17
Absolute Lymphs (auto) 0.5 10^3/uL (1.2-3.4) L 04/12/24 17:17
Absolute Monos (auto) 0.4 10^3/uL (0.1-0.6) 04/12/24 17:17
Absolute Basos (auto) 0.0 10^3/uL (0-0.2) 04/12/24 17:17
Immature Gran % 0.5 % (0-0.5) 04/12/24 17:17
Neutrophils % 91.5 % (42.2-75.2) H 04/12/24 17:17
Lymphocytes % 4.2 % (20.5-51.1) L 04/12/24 17:17
Monocytes % 3.4 % (1.7-9.3) 04/12/24 17:17
Eosinophils % 0.2 % (0-6) 04/12/24 17:17
Basophils % 0.2 % (0-2) 04/12/24 17:17
Procalcitonin 1.97 ng/ml (0.0-0.25) H 04/12/24 21:33
Microbiology Results
Micro:
04/12/24 21:14 Nasal Screen MRSA (PCR) - Pending
Nose
04/13/24 03:56 Streptococcus pneumoniae Antigen (M - Final
Urine Negative for Streptococcus pneumoniae antigen.
A negative result does not exclude infection with
Streptococcus pneumoniae. Clinical correlation is
recommended.
04/13/24 00:45 Blood Culture - Pending
Blood/Venous
04/13/24 00:38 Blood Culture - Pending
Blood/Venous
04/12/24 17:46 Influenza Types A & B (MICHELE) - Final
Nasal Swab Influenza A Positive, NAAT
Assessment / Plan
Severe Influenza A
Hypoxemic Resp Failure
Shock
- sputum culture if able to obtain one
- flu A subtyping for possible H5N1 recommended given critically ill patient by CDC and ordered - note there are possible additional antiviral therapies if not improving and H5N1 confirmed (unlikely, no clinical exposures)
- blood cultures x2 in progress
- resp culture sent - gram stain pending
- MRSA PCR negative
- procalcitonin not interpretable at this degree of renal dysfunction
- continue tamiflu - renally dosed - 10 day course
- stopped vancomycin as MRSA PCR negative
- continue cefepime pending sputum culture
[2024-04-13 11:10] LABS: Urine Mucus Many; Urine Squamous Cell 0-2 /LPF (Few)
[2024-04-13 11:11] LABS: Urine Amorphous Seen
[2024-04-13 11:12] LABS: Urine Calcium Oxalate Crystals Seen; Urine Granular Cast 0-2 /LPF (0); Urine Hyaline Cast 0-2 /LPF (0-2)
[2024-04-13 11:13] LABS: Urine White Cell 0-2 /HPF (0-5)
--- NOTE | 2024-04-13 12:12 | PTCARENOTE ---
Updated assessment, vital signs ongoing and as documented. Follow up attempts thru morning for sbt. Respiratory cares team in and out at bedside. Sedation off thru am during trials. Patient now restless, mouthing 'I can't breath', thrashing head,
and pulling on equipment. Continue supportive cares, behavior redirection, sedation as needed. Update with cardiology and hospitalist team. Heparin, asa and drip protocol ongoing. Follow up lab trends and assessment trends. Update with [employer] Consultant
team, continue to follow along to weaning parameters. Supportive cares and emotional support continues.
[2024-04-13 13:00] LABS: Glucose - Point of Care 174 mg/dl (70-99)
[2024-04-13] MEDS: NOVOLOG FLEXPEN-LOW RESISTANCE 1 UNITS SC (13:52)
[2024-04-13] MEDS: DIPRIVAN 100 IV ×2 (13:54→23:24)
[2024-04-13 14:31] LABS: Troponin I 0.487 ng/ml
--- NOTE | 2024-04-13 14:58 | CM ---
CM following re: discharge planning.
Discussed in Rounds, reviewed pt's chart,met with pt and pt's granddaughter Hina at bedside.
Pt is an 83 year old female, admitted with primary dx of Acute hypercarbic respiratory failure s/p intubation. Per Rounds meeting, pt remains intubated, continue supportive care.
Per granddaughter, pt has been living at [facility] since 11/2021, in 08/2022 moved to their personal care unit. Per granddaughter, pt ambulates with a walker, has 3 supportive children. Pt's granddaughter stated that pt follows by palliative
care in a community and she is requested to consult Palliative care to help with navigating of next level of care.
D/C plan: uncertain at this time and will depend on pt's progress.
CM will follow with discharge plan updates as hospitalization progresses.
[2024-04-13] MEDS: SUBLIMAZE 50 MCG IV (14:59)
[2024-04-13] MEDS: NOVOLOG FLEXPEN-LOW RESISTANCE 2 UNITS SC (17:14)
[2024-04-13 17:22] LABS: Glucose - Point of Care 201 mg/dl (70-99)
--- NOTE | 2024-04-13 17:28 | PTCARENOTE ---
Update with patient son at bedside. Review reinforce events of day, review reinforce concern thru shift and continue updated teaching plan of cares. Heparin drip as per cv protocol with PTT trends as ordered. Follow up drip titration for levophed.
Sedation as ordered, with frequent pain assessments. Continue supportive cares and emotional support. Hourly rounds and safety checks ongoing. Continue skin cares, oral cares, and turning protocols.
[2024-04-13 17:30] LABS: APTT 85.4 Sec (23.4-35.0)
[2024-04-13] MEDS: TAMIFLU 30 MG PO (20:07)
--- NOTE | 2024-04-13 20:07 | PTCARENOTE ---
Cannot verify vital signs prior to 1900, previous shift.
[2024-04-13] MEDS: SYMBICORT 80/4.5 MCG INHALER 4 PUFF INH (20:27)
--- NOTE | 2024-04-13 20:30 | PTCARENOTE ---
Received patient intubated, sedated, and restrained. Opens eyes to verbal/tactile stimulation. +1 generalized anasarca, normal sinus 70s with first degree block and right BBB. Palpable radial and pedal pulses b/l. On norepinephrine gtt, titrating to
maintain MAP>65, see flowsheets. Rhonchi and crackles throughout, expiratory wheeze. 8.0 ETT at 20 cm. Vent settings 18/400/40%/5, saturating 98-99%. Thick brown/blood tinged secretions suctioned endotracheally. Right NGT to LIWS at 60 cm, flushed
with tap water putting out green drainage. Abdomen soft, round, obese, hypoactive bowel sounds. Nayak in place draining yellow urine for critical I&Os. MASD under breasts, antifungal powder applied. Heel foams intact. PIVs patent, WNL. Right radial
karan zeroed, flushed, and leveled. Heparin and propofol gtt ongoing per order. Hourly rounding and patient safety checks ongoing.
[2024-04-13] MEDS: CYMBALTA DELAYED RELEASE 30 MG PO (23:23)
[2024-04-14] VITALS (16 sets, daily range): BP systolic 105–152; BP diastolic 56–94; BMI 26.7
[2024-04-14 00:05] LABS: APTT 143.5 Sec (23.4-35.0)
[2024-04-14 00:08] LABS: Glucose - Point of Care 192 mg/dl (70-99)
[2024-04-14] MEDS: NOVOLOG FLEXPEN-LOW RESISTANCE 1 UNITS SC ×4 (00:20→18:01)
--- NOTE | 2024-04-14 00:21 | PTCARENOTE ---
Repositioned, mouth care done, olguin care done. Covered with 1 unit of insulin, heparin on hold per protocol, restarting in an hour. Levophed gtt off, BP maintaining MAP>65. Poor urine output, 10-15 ml/hr, INHALATION THERAPY AIDES TEACHER aware. Otherwise patient assessment
unchanged from previous.
--- NOTE | 2024-04-14 03:56 | PTCARENOTE ---
Patient assessment unchanged from previous, CHG bath done, labs sent, repositioned, mouth care done. Hourly rounding and patient safety checks ongoing.
[2024-04-14 04:08] LABS: % Basophils 0.1 % (0-2); % Immature Granulocytes 0.4 % (0-0.5); % Lymphocytes 4.8 % (20.5-51.1); % Monocytes 2.7 % (1.7-9.3); Absolute Immature Granulocytes 0.1 10^3/uL (0-0.05); Absolute Lymphocytes 0.6 10^3/uL (1.2-3.4); Absolute Monocytes 0.4 10^3/uL (0.1-0.6); Absolute Neutrophils 12.3 10^3/uL (1.4-6.5); Hematocrit 32.8 % (37.0-47.0); Hemoglobin 10.8 g/dL (12.0-16.0); Mean Corp Hgb Conc. 32.9 g/dL (33.0-37.0); Mean Corpuscular Hgb 31.1 pg (27.0-31.0); Mean Corpuscular Volume 94.5 fL (81.0-99.0); Mean Platelet Volume 10.5 fL (7.4-10.4); Nucleated Red Blood Cells % 0 %; Platelet Count 146 10^3/uL (130-400); Red Blood Cell Count 3.47 10^6/uL (4.20-5.40); White Blood Cell Count 13.3 10^3/uL (4.8-10.8)
[2024-04-14 04:15] LABS: B.E. 9.3 mmol/L; HCO3 32.5 mmol/L (21-28); Ionized Calcium 1.29 mMOL/L (1.15-1.33); PCO2 38 mmHg (32-35); PO2 105 mmHg (83-108); Potassium 2.8 mMOL/L (3.5-5.1); Sodium 142 mMOL/L (136-145); pH 7.54 (7.35-7.45)
[2024-04-14 04:16] LABS: O2 Therapy 40%
[2024-04-14 04:56] LABS: ALT (SGPT) 26 U/L (0-35); AST (SGOT) 33 U/L (14-36); Albumin 3.3 g/dl (3.5-5.0); Alkaline Phosphatase 53 U/L (38-126); Blood Urea Nitrogen 90 mg/dl (7-17); Calcium 9.9 mg/dl (8.4-10.2); Carbon Dioxide 27 mmol/L (22-30); Chloride 101 mmol/L (98-107); Estimated Creatinine Clearance 12 ml/min; Glucose 169 mg/dl (70-99); Magnesium 2.2 mg/dl (1.6-2.3); Phosphorus 2.5 mg/dl (2.5-4.5); Potassium 3.2 mmol/L (3.5-5.1); Sodium 142 mmol/L (135-145); Total Bilirubin 1.5 mg/dl (0.2-1.3); Total Protein 5.8 g/dl (6.3-8.2); eGFR 15.48
[2024-04-14] MEDS: KCL 270 MEQ IV (05:49)
[2024-04-14 06:25] LABS: Glucose - Point of Care 162 mg/dl (70-99)
[2024-04-14] MEDS: DUONEB 3 ML INH ×4 (07:13→19:59)
[2024-04-14] MEDS: SYMBICORT 80/4.5 MCG INHALER 4 PUFF INH (07:14)
--- NOTE | 2024-04-14 07:16 | W.PN.INTV ---
Today's Communication / Plan
Recommendations
SBT trials, off sedation/pressors--plan for extubation
Family agrees with DNR/no reintubation should she fail extubation per her advanced directives
Wean IV steroids
Cultures negative, consider stopping abx, continue tamiflu
Creat worsening, repeat labs this PM--consider renal consult
BIPAP tonight PRN
Assessment
-
Patient is an 83-year-old female with history of COPD (on outpatient palliative care), Afib on Eliquis, CHF, HTN, HLD, pacemaker, CKD presenting to ER from [facility] for unresponsiveness, hypotension, hypoxemia. Patient was reportedly SOB since
last 04/07/24. In ER, patient is on 4L NC, tested positive for Flu A. CXR showing diffuse interstitial process. Initial ABG showing , placed on BIPAP and admitted to IMU. Developed worsening MS, SOB--repeat ABG , decision
make for intubation and transfer to ICU.
Acute hypercarbic respiratory failure s/p intubation
Acute influenza illness
SOB
Unresponsiveness
Severe COPD, chronic hypoxemia on 2L, on OP pall care
Septic shock on pressors
Conditions present prior to admission
hypertension
type 2 diabetes
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
follows with Dr Kim
maintained on Trelegy 100 1 puff daily
On pall care w/ Dr Cullen
PELON, not on CPAP >10 years
R pleural effusion, chronic
vitamin b12 deficiency
depression
Hx falls
CAD s/p CABG hx OK; hx cardiac stents 07/2015
Mitral valve repair 2006
CKD stage 4
iron deficiency anemia
Afib/atrial flutter
orthostatic hypotension
hay-Fever
GERD
Rheumatoid Arthritis
HFpEF
hx COVID with residual ageusia
SSS with bifascicular block s/p PPM
L non-occlusive subclavian DVT 11/03/2022
R renal mass
X3
cholecystectomy
appendectomy
right eye surgery- retina repair
carpal tunnel surgery -left arm
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
DH hypercalcemia and UTI 05/2022
DH GIB 2/2 gastric ulcer 01/30/2022
Plan
Awake/alert, off sedation, SAT trials
Pain/sedation: wean sedation as tolerated
RASS goals: 0
Hemodynamically stable, weaned off pressors
Cardiac history reviewed--HTN, HFpEF, Afib, CAD
Prior ECHO reviewed indicating normal function, mild VHD
Hold home meds while hypotensive, resume as able
Monitor on telemetry
Intubated for hypercarbia, SBT planning
Vent setting reviewed: AC 400/18/40/5
Prior history of lung disease: severe COPD on home O2, on pall care
Supplemental O2 as indicated to maintain sats > 89%
CXR/CT reviewed indicating NAD, repeat PRN
SBT planning and extubate, family clear no reintubation
Code status changed to DNR
Wean IV steroids
NPO, resume diet when able
Produce Associate recommendations
Aspiration precautions, HOB > 30 degrees
Speech therapy eval can be considered if at elevated risk
GI prophylaxis if indicated for mechanical ventilation >48 hours, prior history of GERD, stress ulcer formation in the critically ill
Creat baseline, 1.8-- now 2.9, consider renal consult
Repeat labs this PM, if ongoing may consider consult
History of renal disease/CKD IV
Void trials
Follow urine output, critical I/Os
Replete electrolytes as needed
Fever and increased WBC on presentation, Flu positive on isolation
PCT 1.97, r/o superimposed bacterial PNA
Started on empiric antibiotics
Cultures sent/pending--marco a in sputum, can consider d/c abx
Follow fever trend, WBC count
CBC stable, no signs of bleeding or coagulopathy.
DVT prophylaxis as assessed based on risk, including mechanical SCDs
Can transfuse if indicated for Hb <7, plt < 10
No prior h/o diabetes or thyroid disease
Monitor accuchecks PRN/SS coverage if needed
Diagnostic Data
Chest X-Ray: 04/12/24- Low lung volumes. Generalized prominence of bronchovascular markings and interstitial markings. Possibly, in part, artifactual. However, this may also be related to mild vascular congestion and interstitial edema in the proper
clinical setting. No evidence of pneumonia.
05/24/23- No acute cardiopulmonary process.
CT Scan:
Echo: 10/20/22- Normal biventricular size and systolic function without regional wall motion abnormality. Estimated LVEF 55-60%. Moderate concentric left ventricular hypertrophy. S/p mitral valve repair. Mean gradient 5-6 mmHg. Mild mitral
regurgitation. Aortic sclerosis without stenosis. Mild/moderate tricuspid regurgitation. Normal PASP.
PFT's:
Reports and relevant images were personally reviewed.
Critical Care time 46 mins -- The patient is admitted for acute critical illness for the treatment of vital organ failure and/or prevention of further life-threatening conditions. Total care includes time spent in review of history, physical exam,
medications, hemodynamic/ventilator parameters, laboratory data, imaging and discussion with house staff, pharmacy, respiratory therapy, machine shop worker, and nursing.
Subjective Dataa
Subjective Data
Date of Service:
Date of Service: April 14, 2024
Chief Complaint: Remote Sensing Research Scientist Follow Up
Subjective:
Remains intubated, more arousable today
Off sedation, on PSW
Granddaughter at bedside
Objective Data
Data Reviewed
Vital Signs / I&O / Oxygen:
Vital Signs
Temp Pulse Resp BP Pulse Ox
99.4 F 72 18 105/57 98
04/14/24 03:30 04/14/24 06:08 04/14/24 06:08 04/14/24 06:08 04/14/24 06:08
Intake and Output
04/13/24 04/14/24 04/15/24
06:59 06:59 06:59
Intake Total 761.55 / 761.55
Output Total 225 / 225 695 / 695
Balance -225 / -225 66.55 / 66.55
SaO2 [A/C] 97
SaO2 98
Nasal Cannula flow liters per 6
minute
Physical Exam
General: Comfortable and Other (NAD)
HEENT: Normocephalic, Anicteric and Moist Mucous Membranes
Cardiovascular: S1-S2, Regular Rhythm and Murmur
Respiratory: Crackles, Non-Labored Respirations and ET Tube
GI: Soft, Non Distended and Non Tender
Neurology: Awake, Alert and No Motor Deficits
Skin: Warm, Dry and Good Color
Labs/Micro/Reports
Lab Data
04/14/24 03:32
04/14/24 03:32
Laboratory Results
04/13/24 04/13/24 04/13/24
08:47 17:10 23:42
APTT 34.9 85.4 H 143.5 H
pH
pCO2
pO2
HCO3
O2 Delivery Level
04/14/24
04:10
APTT
pH 7.54 H
pCO2 38 H
pO2 105
HCO3 32.5 H
O2 Delivery Level 40%
Microbiology
04/13/24 00:45 Blood/Venous Blood Culture - Preliminary
No Growth in 24 hours- Final report to follow
04/13/24 00:38 Blood/Venous Blood Culture - Preliminary
No Growth in 24 hours- Final report to follow
04/13/24 10:59 Tracheal Aspirate Gram Stain - Preliminary
04/12/24 21:14 Nose Nasal Screen MRSA (PCR) - Final
MRSA not detected - performed by PCR methodology.
04/13/24 03:56 Urine Streptococcus pneumoniae Antigen (M - Final
Negative for Streptococcus pneumoniae antigen.
A negative result does not exclude infection with
Streptococcus pneumoniae. Clinical correlation is
recommended.
04/12/24 17:46 Nasal Swab Influenza Types A & B (MICHELE) - Final
Influenza A Positive, NAAT
[2024-04-14 07:18] LABS: Reticulocyte Count 1.1 % (0.4-2.8)
[2024-04-14] MEDS: MIRALAX 17 GRAMS PO (07:40)
[2024-04-14] MEDS: LIPITOR 20 MG PO (07:40)
[2024-04-14] MEDS: ASPIRIN 300 MG RECTAL (07:40)
[2024-04-14] MEDS: NSS (PRESERVATIVE FREE) 10 ML IV (07:41)
[2024-04-14] MEDS: LOPRESSOR PO (07:41)
[2024-04-14] MEDS: PROTONIX IV 40 MG IV (07:41)
[2024-04-14] MEDS: FEOSOL 325 MG PO (07:41)
[2024-04-14] MEDS: SOLU-MEDROL PF 40 MG IV (07:42)
[2024-04-14 07:50] LABS: Direct Bilirubin 0.5 mg/dl (0.0-0.4); LDH 297 U/L (120-246)
[2024-04-14] MEDS: DESENEX/MITRAZOL/ZEASORB 1 APPLIC TOPICAL ×2 (07:50→20:07)
[2024-04-14 08:02] LABS: APTT 69.9 Sec (23.4-35.0)
--- NOTE | 2024-04-14 08:15 | PTCARENOTE ---
Received pt @ change of shift intubated/sedated/restrained w b/l soft limb/4 rail restraints- see flow sheet. SAT initiated @ 0745- prop off @ this time. Pt. opens eyes to verbal stim; tracks; inconsistently follows commands. B/L pupils
3mm/sluggish. SR w 1st degree AVB and BBB. +1 anasarca. SpO2 98% on vent settings AC18/400/.40/+5. #8.0 ett/20 @ lip on R side. Suctioned for small amt of pulido/brown/thick secretion from ett. Auscultated coarse crackles @ bases; coarse/exp wheeze
w scatt rhonchi throughout. Hypoactive BS, abd soft/round/obese. R nare NGT to LIS w small amt of green output; secured @ 60cm; clamped for meds. Small amt of blood from hemorrhoid. Nayak in place draining yellow urine; output dropping to
10-20/hr. Complete hygiene given. Pt. repositioned per protocol. #20 MARIYA w heparin gtt infusing- see flow sheet. #20 R AC w K+ rider infusing- see MAR. R rad A-line transduced, calibrated, and monitored; all ports patent and secured; correlates
w cuff pressure. Safe environment maintained.
--- NOTE | 2024-04-14 08:47 | PTOTSP ---
Reviewed chart and noted pt remains intubated at this time. Will continue to hold PT. Will need new order for PT (and OT) when extubated/stable to begin therapy activities.
--- NOTE | 2024-04-14 09:27 | W.PN.ID1 ---
Date of Service
Date of Service: April 14, 2024
Today's Communication
c/w tamiflu and cefepime
follow resp culture
Assessment / Plan
Severe Influenza A
Hypoxemic Resp Failure
Shock
CDK4
- sputum culture if able to obtain one
- flu A subtyping for possible H5N1 recommended given critically ill patient by CDC and ordered - note there are possible additional antiviral therapies if not improving and H5N1 confirmed (unlikely, no clinical exposures)
- blood cultures x2 in progress
- resp culture sent - gram stain pending
- MRSA PCR negative
- procalcitonin not interpretable at this degree of renal dysfunction
- continue tamiflu - renally dosed - 10 day course
- stopped vancomycin 04/14 as MRSA PCR negative
- continue cefepime pending sputum culture
Patient if critically ill and chronically ill. Reportedly was on palliative care approach at home with known bilateral renal masses
Chief Complaint
-: Other (Influenza A, hypoxemic resp failure)
Subjective / Review of Systems
remains afebrile
bp stable now off of pressors
ventilator on 40% fio2
Vital Signs / Physical Exam
Vital Signs
Vital Signs
Temp Pulse Resp BP Pulse Ox
97.0 F 79 18 152/71 98
04/14/24 08:00 04/14/24 08:00 04/14/24 08:00 04/14/24 08:00 04/14/24 08:32
Physical Exam
Constitutional: No Acute Distress
Cardiovascular: Regular Rate and S1/S2; Negative Murmur or Rub
Pulmonary: Clear, Symmetric and Wheezes (few scattered); Negative Rales
Gastrointestinal: Soft, Non Tender, Non Distended and Normal Bowel Sounds
Skin: Warm and Dry; Negative Rash or Jaundice
Neurological: Negative Awake
Objective Data
Lab Data
Lab Results
04/14/24 03:32
04/14/24 03:32
APTT 69.9 Sec (23.4-35.0) H 04/14/24 07:37
Estimated Creat Clear 12 ml/min 04/14/24 03:32
Total Bilirubin 1.5 mg/dl (0.2-1.3) H 04/14/24 03:32
AST 33 U/L (14-36) 04/14/24 03:32
ALT 26 U/L (0-35) 04/14/24 03:32
Alkaline Phosphatase 53 U/L (38-126) 04/14/24 03:32
Most recent labs reviewed.
Micro Results:
04/13/24 00:45 Blood Culture - Preliminary
Blood/Venous No Growth in 24 hours- Final report to follow
04/13/24 00:38 Blood Culture - Preliminary
Blood/Venous No Growth in 24 hours- Final report to follow
04/13/24 10:59 Respiratory Culture - Pending
Tracheal Aspirate Gram Stain - many GPCs, many WBCs
04/12/24 21:14 Nasal Screen MRSA (PCR) - Final
Nose MRSA not detected - performed by PCR methodology.
04/13/24 03:56 Streptococcus pneumoniae Antigen (M - Final
Urine Negative for Streptococcus pneumoniae antigen.
A negative result does not exclude infection with
Streptococcus pneumoniae. Clinical correlation is
recommended.
04/12/24 17:46 Influenza Types A & B (MICHELE) - Final
Nasal Swab Influenza A Positive, NAAT
--- NOTE | 2024-04-14 10:04 | W.PN.HOSP.TC ---
Today's Communication/Plan
-
cont cefepime pending Cx
cont tamiflu
cont heparin drip
Off pressors now
repleted potassium
Assessment / Plan
Assessment / Plan
83yo F with PMHX of HLD, HTN, GERD, COPD, b/l renal masses, LONDON, SSS s/p PPM, A.flutter, CAD s/p PCI, HFpEF, Hx of MV repair, Hx of CVT, CKD, Hx of GIB brought with worsening lethargy, found influenza A and COPD exacerbation with hypercarbuia, was
intubated overnight on 04/13/24, developed septic shock most likely 2/2 viral pneumonia, cannot exclude bacrterial component.
A/P:
#Septic shock 2/2 Influenza A cannot exclude bacterial pneumonia
#Acute hypoxic hypercarbic respiratory failure 2/2 COPD exacerbation
Vanco stopped since MRSA screen neg, Cefepime to cont as per ID
Tamiflu
Vent and pressor mgmt as per inspecting supervisor
Taper steroids
cont bronchodilators
sputum Cx - GPC
Bcx NTD
#Acute on chronic HFpEF exacerbation
#Troponin elevation most likely 2/2 shock and hypoxia, cannot exclude NSTEMI
#A.flutter
#SSS s/p PPM
Echo: hyperdynamic function (2/2 pressors?), EF 70%, possible moderate , LVOT gradient
Lasix as BP tolerates
FOllow Cr and electrolytes
Serial troponin
EKG without overt ST elevation
ASA, statin, BB
Heparin drip
#hypokalemia
replete and follow
#GERD
#Hx of GIB
#LONDON
#HLD
cont home meds upon d/c
follow CBC in hospital
check B112 and folate
#JERRY on CKD stage 4 with hypernatremia
hypoperfusion with shock and Lasix on admission
hold lasix
follow Cr, Na
Thomas
#b/l renal masses
recent MRI shoed increase in size
Reportedly was on palliative care approach at home
COnt follow clinical progress and discuss appropriate GOC with family
#Transaminiutis
2/2 shock
follow LFT
DVT ppx heparin
Full code
I have spent at least 56min of time reviewing chart, test results, communication with consultants and direct patient care
Anticipated Discharge: > 48 hours
Subjective/Interval History
-
Date of Service: April 14, 2024
Objective Data
-
Labs:
Laboratory Results
04/13/24 04/14/24 04/14/24
23:42 03:32 04:10
WBC 13.3 H
Hgb 10.8 L
Hct 32.8 L
Plt Count 146 D
APTT 143.5 H
HCO3 32.5 H
Sodium 142
Potassium 3.2 L D
Chloride 101
Carbon Dioxide 27
BUN 90 H
Creatinine 2.9 H
Glucose 169 H
Calcium 9.9
Total Bilirubin 1.5 H
AST 33
ALT 26
Alkaline Phosphatase 53
04/14/24 04/14/24
07:37 14:30
WBC
Hgb
Hct
Plt Count
APTT 69.9 H Pending
HCO3
Sodium
Potassium
Chloride
Carbon Dioxide
BUN
Creatinine
Glucose
Calcium
Total Bilirubin
AST
ALT
Alkaline Phosphatase
Vital Signs:
Vital Signs
Temp Pulse Resp BP Pulse Ox
97.0 F 80 18 152/71 98
04/14/24 08:00 04/14/24 09:00 04/14/24 09:00 04/14/24 08:00 04/14/24 09:00
I&O
04/13/24 04/14/24 04/15/24
06:59 06:59 06:59
Intake Total 761.55 / 774.45 108.4 / 108.4
Output Total 225 / 225 695 / 715 35 / 35
Balance -225 / -225 66.55 / 59.45 73.4 / 73.4
Review of Systems
-
Unable to obtain full review of systems at this time due to: Patient Intubation
Physical Exam
-
General: No Apparent Distress and Intubated
Respiratory: Crackles
Cardiac: Regular Rhythm
GI: Soft
Musculoskeletal: No Clubbing, No Cyanosis and No Edema
Psych: Calm
--- NOTE | 2024-04-14 11:20 | W.CON.PAL ---
Consultation
-
Date/Time Consultation Requested: 04/14
Date/Time Consultation Performed: 04/14
Performing Provider: Jacy GUZMÁN
Reason for Consult: Goals of Care Discussion
Primary Diagnosis: COPD, respiratory failure
Reason for Admission
Illness Course/HPI
83 year old F with PMH of COPD on home 02, b/l renal masses with recent growth known to our team as an outpatient. Admitted with AMS, hypoxia from home. Per son, found at home with pulse ox in the 50s. Upon admission, found to be + for flu A. Was
intubated for worsening mental status. Course also c/b JERRY on CKD. Attempted to wean sedation yesterday and unable to do so due to agitation.
Seen at bedside with granddaughter present. Attempting to wean vent, appears comfortable on CPAP. Weaning pressors. Also spoke with patients son via phone. Asking if patient ever update AD with us - we have no copies of her AD in our system, but did
give her a blank copy that she did not fill out. Per notes, appears she always 'wanted everything done' but after her , stated she would prefer to just be comfortable if at end of life.
She is a full code. Family was discussing her AD/wishes amongst themselves.
Per son and granddaughter, seeing how things go over the coming days. Understand that if things go well, will likely need some kind of rehabilitation and they are unsure if they want her to go back to [facility] if it gets to that point.
Objective Data
-
Objective Data:
Vital Signs
Temp Pulse Resp BP Pulse Ox
97.0 F 83 18 141/75 97
04/14/24 08:00 04/14/24 11:10 04/14/24 11:10 04/14/24 10:00 04/14/24 11:10
Laboratory Results
04/14/24 03:32
04/14/24 03:32
APTT 69.9 Sec (23.4-35.0) H 04/14/24 07:37
Hemoglobin A1c 5.5 % (4.0-5.6) 04/13/24 03:56
Total Protein 5.8 g/dl (6.3-8.2) L 04/14/24 03:32
Albumin 3.3 g/dl (3.5-5.0) L 04/14/24 03:32
Free T4 1.88 ng/dl (0.78-2.19) 04/13/24 03:56
Urine Color Yellow 04/13/24 03:56
Urine Clarity Clear (Clear) 04/13/24 03:56
Urine pH 5.0 (5.0-9.0) 04/13/24 03:56
Ur Specific [place] 1.020 (<1.030) 04/13/24 03:56
Urine Ketones Negative (Negative) 04/13/24 03:56
Urine Bilirubin Negative (Negative) 04/13/24 03:56
Palliative Performance Scale
Palliative Performance Scale:
PPS Level Ambulation Activity & Evidence of Disease Self Care Intake Conscious Level
100% Full Normal Activity & Work; Full Intake Full
No Evidence of Disease
90% Full Normal Activity & Work; Full Normal Full
Some Evidence of Disease
80% Full Normal Activity with Effort Full Normal or Full
Some Evidence of Disease Reduced
70% Reduced Unable Normal Job/Work Full Normal or Full
Significant Disease Reduced
60% Reduced Unable Hobby/Housework Occasional Normal or Full or Confusion
Significant Disease Assistance Reduced
50% Mainly Sit/Lie Unable to do Any Work Considerable Normal or Full or Confusion
Extensive Disease Assistance Req'd Reduced
40% Mainly in Bed Unable to do Most Activity Mainly Assistance Normal or Full or Drowsy;
Extensive Disease Reduced +/- Confusion
30% Totally Bed Unable to do Any Activity Total Care Normal or Full or Drowsy;
Bound Extensive Disease Reduced +/- Confusion
20% Totally Bed Bound Unable to do Any Activity Total Care Minimal to Full or Drowsy;
Extensive Disease Sips +/- Confusion
10% Totally Bed Bound Unable to do Any Activity Total Care Mouth Care Drowsy or Coma;
Extensive Disease Only +/- Confusion
0%
PPS Score Level:
Palliative Performance Score Response
Palliative Performance Score Response: 20%
Physical Exam
-
General: Intubated and Unresponsive
HEENT: Intubated
Respiratory: Decreased Breath Sounds
Cardiac: Regular Rhythm
Peripheral Vascular: No Edema
GI: Soft
Musculoskeletal: Normal Gait & Station
Skin: Warm
Neuro: Sedated
Psych: Calm
Assessment / Plan
-
Assessment/Plan:
83 year old F with COPD, +flu A with respiratory failure now intubated and sedated.
- consulted per family request, known to our team as an outpatient
- hoping to wean off vent
- family reviewing her advance directives etc.
- will follow
Care Reviewed
Data Reviewed
Radiology procedure: Image Reviewed
Medical Tests: I reviewed
Reviewed with: Patient, Family, Physician and Nurse
[2024-04-14] MEDS: MAXIPIME 1000 MG IV ×2 (11:23→23:15)
[2024-04-14] MEDS: STERILE WATER FOR INJECTION 10 ML IV ×2 (11:23→23:15)
[2024-04-14 11:29] LABS: B.E. 7.3 mmol/L; HCO3 32.6 mmol/L (21-28); PCO2 48 mmHg (32-35); PO2 130 mmHg (83-108); pH 7.44 (7.35-7.45)
[2024-04-14 11:30] LABS: Glucose - Point of Care 160 mg/dl (70-99)
--- NOTE | 2024-04-14 11:56 | PTCARENOTE ---
SBT initiated by RT @ 1011 to CPAP settings 40; pt tolerated wean and further weaned approx 30min in to CPAP . Pt. remained tolerating wean. ABG drawn and sent to lab s/p 1H CPAP wean per protocol. Grand-daughter @ bedside; in
contact w pt.'s son and decision made to make DNR; Dr. aMlave to bedside to clarify and further orders received for DNR. ABG results reviewed by Dr. Malave and further orders received to extubate. Pt. extubated by RT @ 1145 to 4LNC, no s/s of resp
distress. Pt. repositioned and placed in chair position in bed. Restraints removed. Safe environment maintained.
[2024-04-14 12:08] LABS: Glucose - Point of Care 160 mg/dl (70-99)
[2024-04-14 14:00] LABS: Urine Sodium 13 mmol/L (30-90)
[2024-04-14 15:07] LABS: APTT 79.7 Sec (23.4-35.0)
[2024-04-14 15:29] LABS: Blood Urea Nitrogen 96 mg/dl (7-17); Calcium 10.5 mg/dl (8.4-10.2); Carbon Dioxide 31 mmol/L (22-30); Chloride 101 mmol/L (98-107); Estimated Creatinine Clearance 10 ml/min; Glucose 184 mg/dl (70-99); Potassium 3.8 mmol/L (3.5-5.1); Sodium 143 mmol/L (135-145); eGFR 12.79
--- NOTE | 2024-04-14 15:48 | W.CON.NEPH ---
Consultation
-
Date/Time Consultation Requested: April 14, 2024 at 1:30 PM
Date/Time Consultation Performed: April 14, 2024 at 3:30 PM
Requesting Provider: Dr. Robles
Performing Provider: Dr. Herrera
Reason for Consultation: Acute on chronic kidney disease
Medical History
-
Chief Complaint: Shortness of breath
History of Present Illness:
83-year-old female from [facility] w h/o COPD, chronic home oxygen, A-fib, on Eliquis, CHF, HTN, HLD, pacemaker, GERD, chronic renal failure, anemia, depression presents for episode of unresponsiveness, hypotension, hypoxemia. patient stated sob
since last night, which was worsening with exertion.. Ultimately was intubated in the ICU diagnosed with influenza
Renal consult for acute on chronic kidney disease baseline creatinine of 1.8-2.0 it is gone up to 3.4.
She had significant hypotension on admission with systolic as low as 50
She has since been extubated and is awake conversive family at the bedside.
She last seen in our office on April 07 where creatinine was 1.8 at that time. She is on Bumex 2 mg outpatient daily. As well as SGLT2 inhibitor/Farxiga
Past Medical History
h/o COPD, chronic home oxygen, A-fib, on Eliquis, CHF, HTN, HLD, pacemaker, GERD, chronic renal failure, anemia, depression
Social History
Tobacco: Non-Smoker
Drug: None
Family History
Family History: Not Pertinent
Allergies / Home Medications
Allergy/AdvReac Type Severity Reaction Status Date / Time
No Known Allergies Allergy Verified 04/12/24 17:04
�Medication �Instructions �Recorded �Confirmed �Type
dapagliflozin propanediol 10 mg 10 mg PO DAILY Kidney Disease 01/30/22 04/12/24 History
tablet (Farxiga)
omeprazole 20 mg capsule,delayed 20 mg PO DAILY Gastrointestinal 07/14/22 04/12/24 History
release issue
bumetanide 2 mg tablet 2 mg PO DAILY Fluid 07/18/22 04/12/24 Rx
retention/Swelling #0 tabs
ferrous sulfate 325 mg (65 mg 325 mg PO DAILY Supplement 08/14/22 04/12/24 History
iron) tablet
fluticasone fur. 100 mcg-umeclid 1 inh inhalation R DAILY 10/16/22 04/12/24 History
62.5 mcg-vilant 25 mcg Lung/Breathing Issues
inhalat.powder (Trelegy Ellipta)
polyethylene glycol 3350 17 gram 17 g PO DAILY Constipation 10/16/22 04/12/24 History
oral powder packet
acetaminophen 325 mg tablet 650 mg (2 x 325 mg) PO Q4HPRN PRN 10/21/22 04/12/24 Rx
mild pain/JAMA/temp> 100.4F #0 tabs
apixaban 2.5 mg tablet (Eliquis) 2.5 mg PO BID Blood clot 08/24/23 04/12/24 History
prevention/tx
duloxetine 30 mg capsule,delayed 30 mg PO HS 08/24/23 04/12/24 History
release
metoprolol tartrate 25 mg tablet 12.5 mg PO BID Heart Failure 08/24/23 04/12/24 History
atorvastatin 20 mg tablet (Lipitor) 20 mg PO DAILY 04/12/24 04/12/24 History
ensifentrine 3 mg/2.5 mL 3 mg inhalation R BID 04/12/24 04/12/24 History
suspension for nebulization
(Ohtuvayre)
Review of Systems
-
Lethargic awake no chest pain or shortness of breath
All other systems: Negative unless noted
Physical Exam
Vital Signs
Vital Signs
Temp Pulse Resp BP Pulse Ox
97.0 F 92 28 129/84 99
04/14/24 15:17 04/14/24 15:16 04/14/24 15:16 04/14/24 12:00 04/14/24 15:16
Lab Results
WBC 13.3 10^3/uL (4.8-10.8) H 04/14/24 03:32
RBC 3.47 10^6/uL (4.20-5.40) L 04/14/24 03:32
Hgb 10.8 g/dL (12.0-16.0) L 04/14/24 03:32
Hct 32.8 % (37.0-47.0) L 04/14/24 03:32
Plt Count 146 10^3/uL (130-400) D 04/14/24 03:32
Sodium 143 mmol/L (135-145) 04/14/24 14:23
Potassium 3.8 mmol/L (3.5-5.1) 04/14/24 14:23
Chloride 101 mmol/L (98-107) 04/14/24 14:23
Carbon Dioxide 31 mmol/L (22-30) H 04/14/24 14:23
BUN 96 mg/dl (7-17) H 04/14/24 14:23
Creatinine 3.4 mg/dL (0.6-1.0) H 04/14/24 14:23
eGFR 12.79 04/14/24 14:23
Glucose 184 mg/dl (70-99) H 04/14/24 14:23
Calcium 10.5 mg/dl (8.4-10.2) H 04/14/24 14:23
Phosphorus 2.5 mg/dl (2.5-4.5) 04/14/24 03:32
Sqd-F-Cjgqcvnvieu Pept 17669 pg/ml 04/12/24 17:17
Albumin 3.3 g/dl (3.5-5.0) L 04/14/24 03:32
Physical Exam
General no acute distress
HEENT no cephalic atraumatic extraocular muscle intact no scleral icterus no JVD neck supple
lungs coarse breath sounds throughout the lung lott
heart regular S1-S2 positive
abdomen soft nontender positive bowel sounds
extremities trace edema
Neurologically nonfocal alert and oriented x 3
Skin no lesions no abrasions no petechiae
Psych normal affect no bizarre behavior
Data Reviewed
-
Radiology: Image Personally Visualized and interpreted (No evidence of pulmonary edema)
Labs: Labs Reviewed by me, Discussed with Nurse, Discussed with Patient and Discussed with Family
Assessment/Plan
-
Assessment:
CKD stage IV (1.8 MG/DL) as of March 17, 2024. Although she has been labile as high as 2.9
Sepsis/influenza A
Anemia, multifactorial
History of diastolic congestive heart failure
COPD
A. fib/AFlutter
Primary hyperparathyroidism
Diabetes
History of GI bleeding
Coronary artery disease, stent placement 2015
UTI
LVEF 55 with severe concentric LVH
Plan:
Labile creatinine over the last year most recently creatinine was 1.8 as of February 2024.
She has been as high as 2.9 on multiple occasions
Current creatinine on consultation 3.4 with oligoanuria.
Acuity secondary to hemodynamic and severe hypotension with systolic as low as 59 with diastolic of 40. Setting of respiratory acidosis hypercapnia with a pCO2 of 94
Currently not requiring pressors she is hemodynamically stable and extubated.
Family was at the bedside as we are treating conservatively. She is not a dialysis candidate.
Agree with holding diuretics at this time the. She is not volume overloaded clinically.
Maintain Anyak catheter.
Renal dose all medications for GFR less than 10.
I will give her 1 L of normal saline with close monitoring of her pulmonary status.
Total Time Spent with Patient (in minutes): 35
--- NOTE | 2024-04-14 16:55 | PTCARENOTE ---
During repositioning pt desaturated into low 80's, unable to self recover, O2 increased to 6LNC and SpO2 increased to 94%. S/P activity, attempted to wean O2 back down to 4LNC and pt. w desaturation episode again and O2 titrated back up to 6LNC;
SpO2 currently 97%. Art line bleeding copiously @ site; removed per orders. Cuff pressures reliable. Assisted w hygiene and repositioned per protocol. Call constantine dominguez in reach. Family @ bedside, updated.
[2024-04-14 17:57] LABS: Glucose - Point of Care 145 mg/dl (70-99)
[2024-04-14] MEDS: NSS 1000 IV (18:01)
[2024-04-14 18:11] LABS: Glucose - Point of Care 165 mg/dl (70-99)
[2024-04-14] MEDS: SYMBICORT 80/4.5 MCG INHALER 2 PUFF INH (19:59)
[2024-04-14] MEDS: LOPRESSOR 12.5 MG PO (20:07)
[2024-04-14] MEDS: TAMIFLU 30 MG PO (20:07)
--- NOTE | 2024-04-14 20:55 | PTCARENOTE ---
Received patient AAOx3, drowsy, following commands and denying pain. Normal sinus 70s with first degree block and BBB. BP stable, 130s/50s, normothermic. +2 lower extremity edema. Palpable radial and pedal pulses b/l. On 4 liters nasal cannula,
coarse and rhonchi scattered throughout saturating 99%. Shallow breathing, occasional moist nonproductive cough. Right nare NGT at 60 cm, set to LIWS, draining brown fluid. Nayak in place, oliguric, yellow urine. PIVs patent, WNL. Repositioned, call
fitch within reach.
[2024-04-14] MEDS: CYMBALTA DELAYED RELEASE 30 MG PO (21:20)
[2024-04-14 21:46] LABS: APTT 91.7 Sec (23.4-35.0)
[2024-04-14 23:49] LABS: Glucose - Point of Care 138 mg/dl (70-99)
[2024-04-14] MEDS: NOVOLOG FLEXPEN-LOW RESISTANCE SC (23:50)
[2024-04-15] VITALS (11 sets, daily range): BP systolic 111–156; BP diastolic 63–75; PULSE 2–90; BMI 26.9
[2024-04-15] MEDS: HEPARIN 25000 UNITS/250 ML IV (00:04)
--- NOTE | 2024-04-15 00:09 | PTCARENOTE ---
Patient assessment unchanged from previous, hourly rounding and patient safety checks ongoing. Call fitch within reach.
[2024-04-15 04:34] LABS: % Basophils 0.1 % (0-2); % Immature Granulocytes 0.6 % (0-0.5); % Lymphocytes 2.7 % (20.5-51.1); % Neutrophils 91.6 % (42.2-75.2); Absolute Immature Granulocytes 0.1 10^3/uL (0-0.05); Absolute Lymphocytes 0.5 10^3/uL (1.2-3.4); Absolute Neutrophils 17.8 10^3/uL (1.4-6.5); Hematocrit 34.2 % (37.0-47.0); Hemoglobin 10.5 g/dL (12.0-16.0); Mean Corp Hgb Conc. 30.7 g/dL (33.0-37.0); Mean Corpuscular Hgb 30.8 pg (27.0-31.0); Mean Corpuscular Volume 100.3 fL (81.0-99.0); Mean Platelet Volume 10.5 fL (7.4-10.4); Nucleated Red Blood Cells % 0 %; Platelet Count 151 10^3/uL (130-400); Red Blood Cell Count 3.41 10^6/uL (4.20-5.40); Red Cell Dist. Width 13.3 % (11.5-14.5); White Blood Cell Count 19.4 10^3/uL (4.8-10.8)
[2024-04-15 05:26] LABS: ALT (SGPT) 22 U/L (0-35); AST (SGOT) 32 U/L (14-36); Alkaline Phosphatase 52 U/L (38-126); Blood Urea Nitrogen 99 mg/dl (7-17); Calcium 9.4 mg/dl (8.4-10.2); Carbon Dioxide 30 mmol/L (22-30); Chloride 107 mmol/L (98-107); Estimated Creatinine Clearance 11 ml/min; Glucose 114 mg/dl (70-99); Magnesium 2.3 mg/dl (1.6-2.3); Potassium 4.2 mmol/L (3.5-5.1); Sodium 147 mmol/L (135-145); Total Bilirubin 0.8 mg/dl (0.2-1.3); Total Protein 5.7 g/dl (6.3-8.2); eGFR 13.76
[2024-04-15] MEDS: SYMBICORT 80/4.5 MCG INHALER 2 PUFF INH ×2 (05:50→17:38)
[2024-04-15] MEDS: DUONEB 3 ML INH ×4 (05:51→17:38)
--- NOTE | 2024-04-15 06:10 | PTCARENOTE ---
CHG bath and shampoo cap done, sheets changed, labs sent, repositioned. Otherwise patient assessment unchanged from previous.
[2024-04-15] MEDS: NOVOLOG FLEXPEN-LOW RESISTANCE SC ×4 (06:17→23:43)
--- NOTE | 2024-04-15 07:30 | W.PN.INTV ---
Today's Communication / Plan
Recommendations
Remains on 6L NC, home use of 2L
CPAP nightly and PRN, she is now DNR
Transition to PO prednisone
Speech eval for diet advancement
PT/OT
Transfer to tele, we will follow
Assessment
-
Patient is an 83-year-old female with history of COPD (on outpatient palliative care), Afib on Eliquis, CHF, HTN, HLD, pacemaker, CKD presenting to ER from [facility] for unresponsiveness, hypotension, hypoxemia. Patient was reportedly SOB since
last 04/07/24. In ER, patient is on 4L NC, tested positive for Flu A. CXR showing diffuse interstitial process. Initial ABG showing , placed on BIPAP and admitted to IMU. Developed worsening MS, SOB--repeat ABG , decision
make for intubation and transfer to ICU.
Acute hypercarbic respiratory failure s/p intubation
Acute influenza illness
SOB
Unresponsiveness
Severe COPD, chronic hypoxemia on 2L, on OP pall care
Septic shock on pressors
Conditions present prior to admission
hypertension
type 2 diabetes
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
follows with Dr Kim
maintained on Trelegy 100 1 puff daily
On pall care w/ Dr Cullen
PELON, not on CPAP >10 years
R pleural effusion, chronic
vitamin b12 deficiency
depression
Hx falls
CAD s/p CABG hx MO; hx cardiac stents 07/2015
Mitral valve repair 2006
CKD stage 4
iron deficiency anemia
Afib/atrial flutter
orthostatic hypotension
hay-Fever
GERD
Rheumatoid Arthritis
HFpEF
hx COVID with residual ageusia
SSS with bifascicular block s/p PPM
L non-occlusive subclavian DVT 11/03/2022
R renal mass
X3
cholecystectomy
appendectomy
right eye surgery- retina repair
carpal tunnel surgery -left arm
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
DH hypercalcemia and UTI 05/2022
DH GIB 2/2 gastric ulcer 01/30/2022
Plan
Off sedation
Pain/sedation: PRN
RASS goals: 0
Hemodynamically stable, weaned off pressors
Cardiac history reviewed--HTN, HFpEF, Afib, CAD
Prior ECHO reviewed indicating normal function, mild VHD
Hold home meds while hypotensive, resume as able
Monitor on telemetry
Intubated for hypercarbia, extubated 04/15/24
Prior history of lung disease: severe COPD on home O2, on pall care
Supplemental O2 as indicated to maintain sats > 89%
CXR/CT reviewed indicating NAD, repeat PRN
CPAP nightly/PRN
Code status changed to DNR
Wean IV steroids --transition to PO taper
NPO, NGT in place
Speech eval for diet advancement
Heel Wheeler recommendations
Aspiration precautions, HOB > 30 degrees
GI prophylaxis if indicated for mechanical ventilation >48 hours, prior history of GERD, stress ulcer formation in the critically ill
Creat baseline, 1.8-- now 2.9
Renal consult obtained
History of renal disease/CKD IV
Void trials
Follow urine output, critical I/Os
Replete electrolytes as needed
Fever and increased WBC on presentation, Flu positive on isolation
PCT 1.97, r/o superimposed bacterial PNA
Started on empiric antibiotics, off now--observation
Remains on tamiflu
Cultures sent/pending--ana in sputum
Follow fever trend, WBC count
CBC stable, no signs of bleeding or coagulopathy.
DVT prophylaxis as assessed based on risk, including mechanical SCDs
Can transfuse if indicated for Hb <7, plt < 10
No prior h/o diabetes or thyroid disease
Monitor accuchecks PRN/SS coverage if needed
Diagnostic Data
Chest X-Ray: 04/12/24- Low lung volumes. Generalized prominence of bronchovascular markings and interstitial markings. Possibly, in part, artifactual. However, this may also be related to mild vascular congestion and interstitial edema in the proper
clinical setting. No evidence of pneumonia.
05/24/23- No acute cardiopulmonary process.
CT Scan:
Echo: 10/20/22- Normal biventricular size and systolic function without regional wall motion abnormality. Estimated LVEF 55-60%. Moderate concentric left ventricular hypertrophy. S/p mitral valve repair. Mean gradient 5-6 mmHg. Mild mitral
regurgitation. Aortic sclerosis without stenosis. Mild/moderate tricuspid regurgitation. Normal PASP.
PFT's:
Reports and relevant images were personally reviewed.
Critical Care time 36 mins -- The patient is admitted for acute critical illness for the treatment of vital organ failure and/or prevention of further life-threatening conditions. Total care includes time spent in review of history, physical exam,
medications, hemodynamic/ventilator parameters, laboratory data, imaging and discussion with house staff, pharmacy, respiratory therapy, automation and control engineer, and nursing.
Subjective Dataa
Subjective Data
Date of Service:
Date of Service: April 15, 2024
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
Subjective:
Doing well post extubation, remains on 6L NC
Desats with mild activity but otherwise stable
Objective Data
Data Reviewed
Vital Signs / I&O / Oxygen:
Vital Signs
Temp Pulse Resp BP Pulse Ox
99.2 F 78 34 136/75 99
04/15/24 07:03 04/15/24 06:00 04/15/24 06:00 04/15/24 06:00 04/15/24 06:00
Intake and Output
04/14/24 04/15/24 04/16/24
06:59 06:59 06:59
Intake Total 761.55 / 774.45 851.4 / 857.9 6.5 / 6.5
Output Total 695 / 715 645 / 675 30 /
Balance 66.55 / 59.45 206.4 / 182.9 -23.5 / -23.5
SaO2 [A/C] 98
SaO2 99
Nasal Cannula flow liters per 6
minute
Physical Exam
General: Comfortable and Other (NAD)
HEENT: Normocephalic, Anicteric and Moist Mucous Membranes
Cardiovascular: S1-S2, Regular Rhythm and Murmur
Respiratory: Wheeze and Non-Labored Respirations
GI: Soft, Non Distended, Non Tender and NG Tube
Neurology: Awake, Alert and No Motor Deficits
Skin: Warm, Dry and Good Color
Labs/Micro/Reports
Lab Data
04/15/24 04:22
04/15/24 04:22
Laboratory Results
04/14/24 04/14/24 04/14/24
07:37 11:20 14:23
APTT 69.9 H 79.7 H
pH 7.44
pCO2 48 H
pO2 130 H
HCO3 32.6 H
O2 Delivery Level
04/14/24 04/15/24
21:26 04:22
APTT 91.7 H 77.0 H
pH
pCO2
pO2
HCO3
O2 Delivery Level
Microbiology
04/13/24 00:45 Blood/Venous Blood Culture - Preliminary
No Growth in 48 hours- Final report to follow
04/13/24 00:38 Blood/Venous Blood Culture - Preliminary
No Growth in 48 hours- Final report to follow
04/13/24 10:59 Tracheal Aspirate Respiratory Culture - Preliminary
Ana albicans
04/13/24 10:59 Tracheal Aspirate Gram Stain - Preliminary
04/12/24 21:14 Nose Nasal Screen MRSA (PCR) - Final
MRSA not detected - performed by PCR methodology.
04/13/24 03:56 Urine Streptococcus pneumoniae Antigen (M - Final
Negative for Streptococcus pneumoniae antigen.
A negative result does not exclude infection with
Streptococcus pneumoniae. Clinical correlation is
recommended.
04/12/24 17:46 Nasal Swab Influenza Types A & B (MICHELE) - Final
Influenza A Positive, NAAT
--- NOTE | 2024-04-15 08:07 | PTOTSP ---
Needs new orders for PT and OT s/p extubation.
--- NOTE | 2024-04-15 08:52 | W.PN.ID1 ---
Date of Service
Date of Service: April 15, 2024
Today's Communication
- note nephrology comment to Renal dose all medications for GFR less than 10
- continue tamiflu - renally dosed - 10 day course - through 04/21
- stopped vancomycin 04/14 as MRSA PCR negative
- stopped cefepime given sputum culture results
Assessment / Plan
Influenza A - improving
Hypoxemic Resp Failure
- sputum culture -ana albicans - normal reji
- flu A subtyping for possible H5N1 recommended given critically ill patient by CDC and ordered - (unlikely, no clinical exposures); I have discussed with lab and it was sent out
- blood cultures x2 in progress
- note nephrology comment to Renal dose all medications for GFR less than 10
- continue tamiflu - renally dosed - 10 day course - through 04/21
- stopped vancomycin 04/14 as MRSA PCR negative
- stopped cefepime given sputum culture results
Reportedly was on palliative care approach at home with known bilateral renal masses
Chief Complaint
-: Other (Influenza A, hypoxemic resp failure)
Subjective / Review of Systems
afebrile
bp stable
extubated yesterday to 4L NC
no complaints
Vital Signs / Physical Exam
Vital Signs
Vital Signs
Temp Pulse Resp BP Pulse Ox
99.2 F 78 34 136/75 99
04/15/24 07:03 04/15/24 06:00 04/15/24 06:00 04/15/24 06:00 04/15/24 06:00
Physical Exam
Constitutional: No Acute Distress and Chronically Ill
Cardiovascular: Regular Rate and S1/S2; Negative Murmur or Rub
Pulmonary: Clear, Symmetric, Wheezes and Other (some tachypnea); Negative Rales
Gastrointestinal: Soft, Non Tender, Non Distended and Normal Bowel Sounds
Skin: Warm and Dry; Negative Rash or Jaundice
Objective Data
Lab Data
Lab Results
04/15/24 04:22
04/15/24 04:22
APTT 77.0 Sec (23.4-35.0) H 04/15/24 04:22
Estimated Creat Clear 11 ml/min 04/15/24 04:22
Total Bilirubin 0.8 mg/dl (0.2-1.3) 04/15/24 04:22
AST 32 U/L (14-36) 04/15/24 04:22
ALT 22 U/L (0-35) 04/15/24 04:22
Alkaline Phosphatase 52 U/L (38-126) 04/15/24 04:22
Most recent labs reviewed.
Micro Results:
04/13/24 00:45 Blood Culture - Preliminary
Blood/Venous No Growth in 48 hours- Final report to follow
04/13/24 00:38 Blood Culture - Preliminary
Blood/Venous No Growth in 48 hours- Final report to follow
04/13/24 10:59 Respiratory Culture - Preliminary
Tracheal Aspirate Ana albicans
Gram Stain - Preliminary
04/12/24 21:14 Nasal Screen MRSA (PCR) - Final
Nose MRSA not detected - performed by PCR methodology.
04/13/24 03:56 Streptococcus pneumoniae Antigen (M - Final
Urine Negative for Streptococcus pneumoniae antigen.
A negative result does not exclude infection with
Streptococcus pneumoniae. Clinical correlation is
recommended.
04/12/24 17:46 Influenza Types A & B (MICHELE) - Final
Nasal Swab Influenza A Positive, NAAT
[2024-04-15] MEDS: PROTONIX IV 40 MG IV (08:53)
[2024-04-15] MEDS: ASPIRIN 300 MG RECTAL (08:53)
[2024-04-15] MEDS: NSS (PRESERVATIVE FREE) 10 ML IV (08:53)
[2024-04-15] MEDS: SOLU-MEDROL PF 40 MG IV (08:53)
[2024-04-15] MEDS: DESENEX/MITRAZOL/ZEASORB 1 APPLIC TOPICAL ×2 (08:54→20:03)
--- NOTE | 2024-04-15 09:05 | PTCARENOTE ---
Assumed care of pt. approx 0700.
Resting in bed maintaining own airway at this time. NC 4L. SP02 98%.
Normotensive, Normothermic, NSR w.o ectopy. Remains on Heparin gtt now therapeutic range.
Normocephalic, anicteric, follows simple commands.
Decreased urine op per olguin for JERRY waiting upon nephro CX. 30ml hr.
All care explained.
--- NOTE | 2024-04-15 09:41 | W.PN.NEPH.PH ---
Today's Communication / Plan
-
IVF
Assessment/Plan
-
Assessment:
CKD stage IV (1.8 MG/DL) as of March 17, 2024. Although she has been labile as high as 2.9
Sepsis/influenza A
Anemia, multifactorial
History of diastolic congestive heart failure
COPD
A. fib/AFlutter
Primary hyperparathyroidism
Diabetes
History of GI bleeding
Coronary artery disease, stent placement 2015
UTI
LVEF 55 with severe concentric LVH
Plan:
light hypotonic IVF to compensate for insensible losses
follow BMP
tamiflu course
abx per ID
not a dialysis candidate, discusses previoulsy by Dr. Herrera
-
-
Date of Service: April 15, 2024
CC / HPI / ROS
-
Chief Complaint:
JERRY
History of Present Illness:
JERRY/Cr down to 3.2
Na up to 147
on tamiflu for influenza A
high O2 requirements
Review of Systems:
no CP
no fever
Labs
-
Labs:
WBC 19.4 10^3/uL (4.8-10.8) H 04/15/24 04:22
RBC 3.41 10^6/uL (4.20-5.40) L 04/15/24 04:22
Hgb 10.5 g/dL (12.0-16.0) L 04/15/24 04:22
Hct 34.2 % (37.0-47.0) L 04/15/24 04:22
Plt Count 151 10^3/uL (130-400) 04/15/24 04:22
Sodium 147 mmol/L (135-145) H 04/15/24 04:22
Potassium 4.2 mmol/L (3.5-5.1) 04/15/24 04:22
Chloride 107 mmol/L (98-107) 04/15/24 04:22
Carbon Dioxide 30 mmol/L (22-30) 04/15/24 04:22
BUN 99 mg/dl (7-17) H 04/15/24 04:22
Creatinine 3.2 mg/dL (0.6-1.0) H 04/15/24 04:22
eGFR 13.76 04/15/24 04:22
Glucose 114 mg/dl (70-99) H 04/15/24 04:22
Calcium 9.4 mg/dl (8.4-10.2) 04/15/24 04:22
Phosphorus 2.5 mg/dl (2.5-4.5) 04/14/24 03:32
Prn-U-Yarubqvoijn Pept 89726 pg/ml 04/12/24 17:17
Albumin 3.0 g/dl (3.5-5.0) L 04/15/24 04:22
Physical Exam
-
Vital Signs:
Vital Signs
Temp Pulse Resp BP Pulse Ox
99.2 F 79 34 153/66 98
04/15/24 07:03 04/15/24 09:00 04/15/24 09:00 04/15/24 08:00 04/15/24 09:13
Cardiovascular:: Regular rate and rhythm
Respiratory:: Bilateral: Coarse
Lung Excursion:: Normal
Abdomen:: Nontender and Soft
Bowel Sounds:: Normal
Extremity Edema:: None: Bilateral:
--- NOTE | 2024-04-15 09:49 | CM ---
CM following for discharge planning.
Pt admitted with sepsis and flu. She has been followed by Palliaitive Care as an outpatient.
Pt was extubated yesterday and is awake and alert. Multiple medical comorbidities; CKD , CHF, COPD, diabetes, CAD; currently with elevated creatinine and oligoanuria. Not a candidate for dialysis.
Plan: CM to follow for discharge planning; will need PT/OT evaluations to determine appropriate services for discharge.
--- NOTE | 2024-04-15 09:55 | W.PN.HOSP.TC ---
Addendum entered and electronically signed by Arjun Robles MD 04/15/24 13:09:
#Acute on chronic hypoxic hypercarbic respiratory failure on 2L home O2
Original Note:
Today's Communication/Plan
-
cont Cefepime
Leukocytosis increased but patient is on steroids too - not reliable indicator
COnt tamiflu
Cr immproving on IVF - cont as per nephro.
Cont heparin until switched to ELiquis by card. COnt trop trend until improvement noted
Assessment / Plan
Assessment / Plan
83yo F with PMHX of HLD, HTN, GERD, COPD, b/l renal masses, LONDON, SSS s/p PPM, A.flutter, CAD s/p PCI, HFpEF, Hx of MV repair, Hx of CVT, CKD, Hx of GIB brought with worsening lethargy, found influenza A and COPD exacerbation with hypercarbuia, was
intubated overnight on 04/13/24, developed septic shock most likely 2/2 viral pneumonia, cannot exclude bacrterial component. Extubated with DNI status afterwards on 04/14/24.
A/P:
#Septic shock 2/2 Influenza A cannot exclude bacterial pneumonia
#Acute hypoxic hypercarbic respiratory failure 2/2 COPD exacerbation
Vanco stopped since MRSA screen neg, Cefepime to cont as per ID
Tamiflu
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
Taper steroids
cont bronchodilators
sputum Cx - GPC
Bcx NTD
#Acute on chronic HFpEF exacerbation
#Troponin elevation most likely 2/2 shock and hypoxia, cannot exclude NSTEMI
#A.flutter
#SSS s/p PPM
Echo: hyperdynamic function (2/2 pressors?), EF 70%, possible moderate , LVOT gradient
Lasix as BP tolerates
FOllow Cr and electrolytes
Serial troponin
EKG without overt ST elevation
ASA, statin, BB
Heparin drip
#hypokalemia
replete and follow
#GERD
#Hx of GIB
#LONDON
#HLD
cont home meds upon d/c
follow CBC in hospital
B12 and folate WNL
#JERRY on CKD stage 4 with hypernatremia
hypoperfusion with shock and Lasix on admission
hold lasix
follow Cr, Na
Thomas
IVF as per nephrology for insensible losses
#b/l renal masses
recent MRI shoed increase in size
Reportedly was on palliative care approach at home
COnt follow clinical progress and discuss appropriate GOC with family
#Transaminitis
2/2 shock
follow LFT
DVT ppx heparin
Full code
I have spent at least 56min of time reviewing chart, test results, communication with consultants and direct patient care
Anticipated Discharge: > 48 hours
Subjective/Interval History
-
Date of Service: April 15, 2024
Objective Data
-
Labs:
Laboratory Results
04/15/24
04:22
WBC 19.4 H
Hgb 10.5 L
Hct 34.2 L
Plt Count 151
APTT 77.0 H
Sodium 147 H
Potassium 4.2
Chloride 107
Carbon Dioxide 30
BUN 99 H
Creatinine 3.2 H
Glucose 114 H
Calcium 9.4
Total Bilirubin 0.8
AST 32
ALT 22
Alkaline Phosphatase 52
Vital Signs:
Vital Signs
Temp Pulse Resp BP Pulse Ox
99.2 F 79 34 153/66 98
04/15/24 07:03 04/15/24 09:00 04/15/24 09:00 04/15/24 08:00 04/15/24 09:13
I&O
04/14/24 04/15/2404/16/25
06:59 06:59 06:59
Intake Total 761.55 / 774.45 851.4 / 857.9 99.5 / 99.5
Output Total 695 / 715 645 / 675 270 / 270
Balance 66.55 / 59.45 206.4 / 182.9 -170.5 / -170.5
Review of Systems
-
History Source: Patient
All other systems: Reviewed and negative
Physical Exam
-
General: Comfortable
Respiratory: Rales and Crackles
Cardiac: Regular Rhythm
GI: Soft
Musculoskeletal: No Clubbing, No Cyanosis and No Edema
Neuro: Awake, Alert, Oriented and AO x 3
Psych: Calm
[2024-04-15] MEDS: 0.45%NACL 1000 IV (10:23)
[2024-04-15] MEDS: MIRALAX 17 GRAMS PO (11:15)
[2024-04-15] MEDS: LOPRESSOR 12.5 MG PO (11:15)
[2024-04-15] MEDS: FEOSOL PO (11:16)
[2024-04-15] MEDS: LIPITOR 20 MG PO (11:16)
[2024-04-15 11:38] LABS: Troponin I 0.424 ng/ml
--- NOTE | 2024-04-15 11:52 | PTCARENOTE ---
Nephrology rounded, 0.45 soft fluids added.
WOC saw pt. wound in [place] area, adaptic applied.
No further changes in pt. assessment.
[2024-04-15 12:12] LABS: Glucose - Point of Care 94 mg/dl (70-99)
--- NOTE | 2024-04-15 12:16 | WOUNDNOTE ---
JANES AREA WOUND
--- NOTE | 2024-04-15 12:23 | WOUNDNOTE ---
WO RN note: Patient admitted with Influenza
See H&P for complete history.
PMH: As noted in MD note, HLD, HTN, GERD, COPD, b/l renal masses, LONDON, SSS s/p PPM, A.flutter, CAD s/p PCI, HFpEF, Hx of MV repair, Hx of CVT, CKD,
Wound Location and type/assessment: Staff noted bleeding from perineum. Upon assessment they noted a wound and consulted WOC RN note. Per chart review, patient had an episode of 'vaginal bleeding' in ER on 08/24/2023. Daughter recalls a wound was
noted at this time, but then the bleeding resolved. Patient denies any new bleeding since that episode. She state she can feel the blister but it is not painful. Wound appears to be an open blood filled blister with sanguinous drainage. No odor or
erythema noted. Wound sits behind catheter. Heels and sacrum intact.
Appetite: NPO
Pressure redistribution devices in place: Centrella Max Air, turning schedule. Heels off-loaded with pillows under calves.
Plan: Blister was clean and a pressure dressing with adaptic and 4x4 was applied. Will continue to assess during in-patient stay. Will confirm orders with hospitalist and update nurse. Updated care plan and will follow as needed.
--- NOTE | 2024-04-15 13:46 | PTOTSP ---
Speech Therapy Evaluation:
Pt presents with clinical signs of oropharyngeal dysphagia characterized by slow and discoordinated oral phase with s/sx of aspiration following thin liquids. Pt's RR increased to 39 x1 during PO trials, though generally fluctuated between 24-30 at
rest. Pt remains at increased risk of aspiration and related complications given hx of asthma/COPD, recent intubation (04/13-04/14), tenuous respiratory status, weak cough strength, and concern for breathing/swallow coordination. CXR without PNA. WBC
elevated. 3oz swallow screen deferred on this date d/t safety concerns with high risk of desaturation.
Recommend:
1. Continue NPO, consider temporary non-oral means of nutrition
2. Non-oral; essential medications crushed in puree
3. Oral care 3x daily
4. Initiate ARHP via SPARING ice chips only with direct supervision. d/c ice chips if concerned for aspiration or worsening in respiratory status
5. REGULATOR ASSEMBLER to follow to determine candidacy for diet initiation verus need for instrumental assessment.
--- NOTE | 2024-04-15 14:43 | PTCARENOTE ---
Addendum entered by Devaughn Russell RN 04/15/24 14:45:
DVT study completed, Per fan mail clerk no obvious evidence of DVT.
Original Note:
x1 episode of Hemoptysis. Large blood clot formations. Heparin gtt stopped. Line Cook notified, will transition to home [facility].
--- NOTE | 2024-04-15 15:23 | W.PN.UPDATE ---
Addendum entered and electronically signed by Arjun Robles MD 04/15/24 15:46:
Corrected reading of US from radiologist - no DVT in LUE. Cont home Eliquis if hemoptysis will not reoccur
Original Note:
Update Note
Progress Note Update
L subclavian DVD on US - restart heparin, watch for repeated hematochezia, suspect due to recent intubation NG tube and O2, possible blood from the nose too. Hgb stable, reasonable to watch
--- NOTE | 2024-04-15 16:04 | PTCARENOTE ---
Radiologist misread. No DVT present in Left extrem.
Plan is to cont. eliquis in presence of Hemoptysis, Heparin gtt remains off/ DC.
Pt, and Grand daughter updated with plan and updated radiology findings.
[2024-04-15 18:31] LABS: Glucose - Point of Care 89 mg/dl (70-99)
[2024-04-15] MEDS: LOPRESSOR 12.5 MG TUBE (20:04)
[2024-04-15] MEDS: ELIQUIS 2.5 MG TUBE (20:06)
--- NOTE | 2024-04-15 20:30 | PTCARENOTE ---
assumed care, pt Ox3 drowsy arouses verbally, follows commands GALEANO, sinus tach on the monitor PVC, BBB, and first degree, lungs diminished, rhonchus and coarse throughout, 4L NC 95%, R salem 60cm to LIS, TF 20ml/25 H2O flush, BSx4 soft non tender,
olguin yellow output oliguric, MASD both breast, scattered ecchymosis on upper extremities, lawrence wound sanguinous drainage, treatment per worklist, 20G L upper, 20G LAC, call fitch within reach, otherwise refer to documentation.
[2024-04-15] MEDS: CYMBALTA DELAYED RELEASE 30 MG TUBE (23:42)
[2024-04-15 23:54] LABS: Glucose - Point of Care 121 mg/dl (70-99)
[2024-04-16] VITALS (8 sets, daily range): BP systolic 63–141; BP diastolic 30–99; BMI 26.5
[2024-04-16] MEDS: 0.45%NACL 1000 IV (03:24)
[2024-04-16 04:47] LABS: % Basophils 0.2 % (0-2); % Lymphocytes 3.2 % (20.5-51.1); % Monocytes 5.2 % (1.7-9.3); % Neutrophils 89.4 % (42.2-75.2); Absolute Immature Granulocytes 0.4 10^3/uL (0-0.05); Absolute Lymphocytes 0.6 10^3/uL (1.2-3.4); Absolute Neutrophils 17.5 10^3/uL (1.4-6.5); Hematocrit 38.3 % (37.0-47.0); Mean Corp Hgb Conc. 28.7 g/dL (33.0-37.0); Mean Corpuscular Hgb 30.7 pg (27.0-31.0); Mean Platelet Volume 10.5 fL (7.4-10.4); Nucleated Red Blood Cells % 0.2 %; Platelet Count 220 10^3/uL (130-400); Red Blood Cell Count 3.58 10^6/uL (4.20-5.40); Red Cell Dist. Width 13.3 % (11.5-14.5); White Blood Cell Count 19.6 10^3/uL (4.8-10.8)
[2024-04-16 05:13] LABS: ALT (SGPT) 21 U/L (0-35); AST (SGOT) 29 U/L (14-36); Albumin 3.1 g/dl (3.5-5.0); Alkaline Phosphatase 46 U/L (38-126); Blood Urea Nitrogen 102 mg/dl (7-17); Calcium 9.6 mg/dl (8.4-10.2); Carbon Dioxide 35 mmol/L (22-30); Chloride 109 mmol/L (98-107); Glucose 134 mg/dl (70-99); Potassium 5.5 mmol/L (3.5-5.1); Sodium 148 mmol/L (135-145); Total Bilirubin 0.8 mg/dl (0.2-1.3); Total Protein 5.9 g/dl (6.3-8.2); Triglycerides 299 mg/dl (10-149)
[2024-04-16 05:31] LABS: Estimated Creatinine Clearance 11 ml/min; eGFR 13.76
[2024-04-16 06:09] LABS: Glucose - Point of Care 125 mg/dl (70-99)
[2024-04-16] MEDS: NOVOLOG FLEXPEN-LOW RESISTANCE SC ×3 (06:22→18:59)
[2024-04-16] MEDS: LOKELMA 5 GRAM TUBE (06:23)
[2024-04-16] MEDS: DUONEB 3 ML INH (06:35)
[2024-04-16] MEDS: SYMBICORT 80/4.5 MCG INHALER 2 PUFF INH (06:35)
--- NOTE | 2024-04-16 08:10 | W.PN.INTV ---
Today's Communication / Plan
Recommendations
Patient being transitioned to comfort care
Stop all medications unless tailored for comfort
Fire Equipment Inspector Helper services offered, family refused
Stop blood draws and fingersticks
No additional recommendations at this time. [employer] Counterperson/Pulmonary service will now sign off. Thank you for allowing us to be involved in the care of this patient. Please call back if there are any questions or concerns.
Assessment
-
Patient is an 83-year-old female with history of COPD (on outpatient palliative care), Afib on Eliquis, CHF, HTN, HLD, pacemaker, CKD presenting to ER from [facility] for unresponsiveness, hypotension, hypoxemia. Patient was reportedly SOB since
last 04/07/24. In ER, patient is on 4L NC, tested positive for Flu A. CXR showing diffuse interstitial process. Initial ABG showing ., placed on BIPAP and admitted to IMU. Developed worsening MS, SOB--repeat ABG , decision
make for intubation and transfer to ICU.
Acute hypercapnic respiratory failure s/p intubation
Acute influenza illness
SOB
Unresponsiveness
Severe COPD, chronic hypoxemia on 2L, on OP palliative care
Septic shock on pressors � shock state resolved since 04/13/2024
Conditions present prior to admission
hypertension
type 2 diabetes
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
follows with Dr Kim
maintained on Trelegy 100 1 puff daily
On pall care w/ Dr Cullen
PELON, not on CPAP >10 years
R pleural effusion, chronic
vitamin b12 deficiency
depression
Hx falls
CAD s/p CABG hx VT; hx cardiac stents 07/2015
Mitral valve repair 2006
CKD stage 4
iron deficiency anemia
Afib/atrial flutter
orthostatic hypotension
hay-Fever
GERD
Rheumatoid Arthritis
HFpEF
hx COVID with residual ageusia
SSS with bifascicular block s/p PPM
L non-occlusive subclavian DVT 11/03/2022
R renal mass
X3
cholecystectomy
appendectomy
right eye surgery- retina repair
carpal tunnel surgery -left arm
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
DH hypercalcemia and UTI 05/2022
DH GIB 2/2 gastric ulcer 01/30/2022
Plan
Patient was less responsive today with worsening hypercapnia with worsening uremia with BUN 102 and creatinine 3.2, also K elevated at 5.5 --> pt not a dialysis candidate; family contacted and she is being transitioned to comfort care
Stop all medications unless tailored for comfort
Emotional support was provided to the family
Stop all blood draws or fingersticks
Stop vasopressors
Fire Equipment Inspector Helper services offered and family wishes to defer for now
No additional recommendations at this time. [employer] Counterperson/Pulmonary service will now sign off. Thank you for allowing us to be involved in the care of this patient. Please reconsult if there are any additional questions/concerns, or if patient's
respiratory status deteriorates.
Diagnostic Data
Chest X-Ray: 04/12/24- Low lung volumes. Generalized prominence of bronchovascular markings and interstitial markings. Possibly, in part, artifactual. However, this may also be related to mild vascular congestion and interstitial edema in the proper
clinical setting. No evidence of pneumonia.
05/24/23- No acute cardiopulmonary process.
CT Scan:
Echo: 10/20/22- Normal biventricular size and systolic function without regional wall motion abnormality. Estimated LVEF 55-60%. Moderate concentric left ventricular hypertrophy. S/p mitral valve repair. Mean gradient 5-6 mmHg. Mild mitral
regurgitation. Aortic sclerosis without stenosis. Mild/moderate tricuspid regurgitation. Normal PASP.
PFT's:
Reports and relevant images were personally reviewed.
Total time spent today was 43 minutes for this encounter. Time includes reviewing laboratory test/imaging results, reviewing pertinent medical records, obtaining and reviewing medical history, performing an appropriate exam, ordering medications,
tests and procedures. Time also includes documentation of this encounter, coordinating patient care and communicating with other healthcare professionals. Total time does not include separately billed tests performed on this date of service.
Subjective Dataa
Subjective Data
Date of Service:
Date of Service: April 16, 2024
Chief Complaint: Automotive Parts Counterperson Follow Up
Subjective:
Patient seen this morning. She is minimally responsive. Family aware and they are transitioning to comfort care. Blood gas repeated today and shows worsening hypercapnia.
Review of Systems
General: Unobtainable - Pat Unresp
Objective Data
Data Reviewed
Vital Signs / I&O / Oxygen:
Vital Signs
Temp Pulse Resp BP Pulse Ox
98.3 F 91 24 95/70 96
04/16/24 07:00 04/16/24 08:49 04/16/24 06:36 04/16/24 08:49 04/16/24 06:36
Intake and Output
04/15/24 04/16/24 04/17/24
06:59 06:59 06:59
Intake Total 851.4 / 857.9 2505.5 / 2565.5 60 / 60
Output Total 645 / 675 1520 / 1540 20 /
Balance 206.4 / 182.9 985.5 / 1025.5 40 / 40
SaO2 [A/C] 98
SaO2 96
Nasal Cannula flow liters per 3
minute
Physical Exam
General: Respiratory Distress (negative), Comfortable, Chills (negative), Sweats (negative) and Other (NAD)
HEENT: Normocephalic, Anicteric and Moist Mucous Membranes
Cardiovascular: S1-S2, Rub (negative) and Peripheral Edema (negative)
Respiratory: Wheeze (negative), Crackles (Bibasal), Rhonchi (negative), Accessory Resp Muscle Use (Mild) and Stridor (negative)
GI: Soft, Non Distended, Non Tender and NG Tube
Neurology: Tremors (negative) and Unresponsive
Skin: Warm, Dry, Cyanosis (negative) and Jaundice (negative)
Labs/Micro/Reports
Lab Data
04/16/24 04:27
04/16/24 04:27
Laboratory Results
04/15/24
15:21
APTT Cancelled
Microbiology
04/13/24 00:45 Blood/Venous Blood Culture - Preliminary
No Growth in 72 hours- Final report to follow
04/13/24 00:38 Blood/Venous Blood Culture - Preliminary
No Growth in 72 hours- Final report to follow
04/13/24 10:59 Tracheal Aspirate Respiratory Culture - Final
Ana albicans
04/13/24 10:59 Tracheal Aspirate Gram Stain - Final
04/12/24 21:14 Nose Nasal Screen MRSA (PCR) - Final
MRSA not detected - performed by PCR methodology.
04/13/24 03:56 Urine Streptococcus pneumoniae Antigen (M - Final
Negative for Streptococcus pneumoniae antigen.
A negative result does not exclude infection with
Streptococcus pneumoniae. Clinical correlation is
recommended.
[2024-04-16] MEDS: LIPITOR 20 MG TUBE (08:46)
[2024-04-16] MEDS: DELTASONE 50 MG TUBE (08:47)
[2024-04-16] MEDS: PROTONIX IV 40 MG IV (08:47)
[2024-04-16] MEDS: NSS (PRESERVATIVE FREE) 10 ML IV (08:47)
[2024-04-16] MEDS: LOW STRENGTH ASPIRIN 81 MG TUBE (08:48)
[2024-04-16] MEDS: LOPRESSOR TUBE (08:49)
[2024-04-16] MEDS: MIRALAX 17 GRAMS TUBE (08:50)
[2024-04-16] MEDS: TAMIFLU 30 MG TUBE (08:51)
[2024-04-16] MEDS: ELIQUIS 2.5 MG TUBE (08:51)
--- NOTE | 2024-04-16 09:25 | W.PN.ID1 ---
Date of Service
Date of Service: April 16, 2024
Today's Communication
c/w tamiflu
follow renal function
Assessment / Plan
Influenza A - improving
Hypoxemic Resp Failure
- sputum culture -ana albicans - normal reji
- flu A subtyping for possible H5N1 recommended given critically ill patient by CDC and ordered - (unlikely, no clinical exposures) - pending
- blood cultures x2 in progress no growth to date
- note nephrology comment to Renal dose all medications for GFR less than 10
- continue tamiflu - renally dosed - 10 day course - through 04/21
- steroids per pulmonary
Reportedly was on palliative care approach at home with known bilateral renal masses; reintubation vs bipap being considered
Chief Complaint
-: Other (Influenza A, hypoxemic resp failure)
Subjective / Review of Systems
afebrile
bp borderline hypotensive
now on 3L NC
not responsive, in mild resp distress
bipap vs reintubation being considered
Vital Signs / Physical Exam
Vital Signs
Vital Signs
Temp Pulse Resp BP Pulse Ox
98.3 F 91 24 95/70 96
04/16/24 07:00 04/16/24 08:49 04/16/24 06:36 04/16/24 08:49 04/16/24 06:36
Physical Exam
Constitutional: Acutely Ill and Chronically Ill
Cardiovascular: Regular Rate and S1/S2; Negative Murmur or Rub
Pulmonary: Symmetric and Other (tachypneic, shallow, rapid breathing); Negative Wheezes or Rales
Gastrointestinal: Soft, Non Tender, Non Distended and Normal Bowel Sounds
Skin: Warm and Dry; Negative Rash or Jaundice
Objective Data
Lab Data
Lab Results
04/16/24 04:27
04/16/24 04:27
APTT Cancelled 04/15/24 15:21
Estimated Creat Clear 11 ml/min 04/16/24 04:27
Total Bilirubin 0.8 mg/dl (0.2-1.3) 04/16/24 04:27
AST 29 U/L (14-36) 04/16/24 04:27
ALT 21 U/L (0-35) 04/16/24 04:27
Alkaline Phosphatase 46 U/L (38-126) 04/16/24 04:27
Most recent labs reviewed.
Micro Results:
04/13/24 00:45 Blood Culture - Preliminary
Blood/Venous No Growth in 72 hours- Final report to follow
04/13/24 00:38 Blood Culture - Preliminary
Blood/Venous No Growth in 72 hours- Final report to follow
04/13/24 10:59 Respiratory Culture - Final
Tracheal Aspirate Ana albicans
Gram Stain - Final
04/12/24 21:14 Nasal Screen MRSA (PCR) - Final
Nose MRSA not detected - performed by PCR methodology.
04/13/24 03:56 Streptococcus pneumoniae Antigen (M - Final
Urine Negative for Streptococcus pneumoniae antigen.
A negative result does not exclude infection with
Streptococcus pneumoniae. Clinical correlation is
recommended.
04/12/24 17:46 Influenza Types A & B (MICHELE) - Final
Nasal Swab Influenza A Positive, NAAT
[2024-04-16 09:50] LABS: Venous Blood Gas B.E. 2.7 mmol/L (-4 to +4); Venous Blood Gas HCO3 32.8 mmol/L (22-27); Venous Blood Gas pO2 142 mmHg (30-50)
[2024-04-16 09:52] LABS: Venous Blood Gas pCO2 84 mmHg (35-48)
--- NOTE | 2024-04-16 10:03 | W.PN.NEPH.PH ---
Today's Communication / Plan
-
await family decision
Assessment/Plan
-
Assessment:
CKD stage IV (1.8 MG/DL) as of March 17, 2024. Although she has been labile as high as 2.9
Sepsis/influenza A
Anemia, multifactorial
History of diastolic congestive heart failure
COPD
A. fib/AFlutter
Primary hyperparathyroidism
Diabetes
History of GI bleeding
Coronary artery disease, stent placement 2015
UTI
LVEF 55 with severe concentric LVH
Plan:
follow BMP
tamiflu course
abx per ID
not a dialysis candidate, discusses previoulsy by Dr. Herrera
await family decision. hypotension-no pressors. DNI/DNR. I told them that if they opt for BiPAP for more time, it will not be much and the associated renal failure issues will become more prominent
critical care time 31 minutes
-
-
Date of Service: April 16, 2024
CC / HPI / ROS
-
Chief Complaint:
JERRY
History of Present Illness:
JRERY/Cr stable at 3.2
Na up to 148
K up to 5.5
hypotense SBP 70s
on tamiflu for influenza A
high O2 requirements
ABG with pCO2 84
Review of Systems:
no CP
no fever
Labs
-
Labs:
WBC 19.6 10^3/uL (4.8-10.8) H 04/16/24 04:27
RBC 3.58 10^6/uL (4.20-5.40) L 04/16/24 04:27
Hgb 11.0 g/dL (12.0-16.0) L 04/16/24 04:27
Hct 38.3 % (37.0-47.0) 04/16/24 04:27
Plt Count 220 10^3/uL (130-400) D 04/16/24 04:27
Sodium 148 mmol/L (135-145) H 04/16/24 04:27
Potassium 5.5 mmol/L (3.5-5.1) H D 04/16/24 04:27
Chloride 109 mmol/L (98-107) H 04/16/24 04:27
Carbon Dioxide 35 mmol/L (22-30) H 04/16/24 04:27
BUN 102 mg/dl (7-17) H* 04/16/24 04:27
Creatinine 3.2 mg/dL (0.6-1.0) H 04/16/24 04:27
eGFR 13.76 04/16/24 04:27
Glucose 134 mg/dl (70-99) H 04/16/24 04:27
Calcium 9.6 mg/dl (8.4-10.2) 04/16/24 04:27
Phosphorus 2.5 mg/dl (2.5-4.5) 04/14/24 03:32
Hez-R-Xsqjoppxpjn Pept 19605 pg/ml 04/12/24 17:17
Albumin 3.1 g/dl (3.5-5.0) L 04/16/24 04:27
Physical Exam
-
Vital Signs:
Vital Signs
Temp Pulse Resp BP Pulse Ox
98.3 F 91 24 95/70 96
04/16/24 07:00 04/16/24 08:49 04/16/24 06:36 04/16/24 08:49 04/16/24 06:36
Cardiovascular:: Regular rate and rhythm
Respiratory:: Bilateral: Rales and Bilateral: Rhonchi
Lung Excursion:: Normal
Abdomen:: Nontender and Soft
Bowel Sounds:: Normal
Extremity Edema:: None: Bilateral:
--- NOTE | 2024-04-16 10:07 | PTCARENOTE ---
Assumed care of pt. approx 0700.
Pt. somnolent, not responding to sternal rub. Hospitalist to bedside.
STAT VBG ordered. Pt. found to be Acidotic.
Family discussion with multiple physicians, family has decided comfort care.
Hospitalist informed. will proceed comfort measures.
--- NOTE | 2024-04-16 10:19 | W.PN.HOSP.TC ---
Today's Communication/Plan
-
comfort care, hospice consult
Assessment / Plan
Assessment / Plan
83yo F with PMHX of HLD, HTN, GERD, COPD, b/l renal masses, LONDON, SSS s/p PPM, A.flutter, CAD s/p PCI, HFpEF, Hx of MV repair, Hx of CVT, CKD, Hx of GIB brought with worsening lethargy, found influenza A and COPD exacerbation with hypercarbuia, was
intubated overnight on 04/13/24, developed septic shock most likely 2/2 viral pneumonia, cannot exclude bacrterial component. Extubated with DNI status afterwards on 04/14/24. Re-developed obtundance with significant CO2 retention and crackles with
peristent oliguric JERRY on 04/16/24, so with no improvement family decisded comfort care approach. They verbalized agreement and understanding that no additional tests to be done, all active meds to be stoipped and patient will be provided symptomatic
relieve from dyspnea, anxiety and pain only.
A/P:
#Septic shock 2/2 Influenza A cannot exclude bacterial pneumonia
#Acute hypoxic hypercarbic respiratory failure 2/2 COPD exacerbation
Abx stopped with negative respiratory cultures as per ID. Ana in sputum is colonization and no treatment was advised
Tamiflu
Vent and pressor mgmt as per pediatric hospitalist
Taper steroids
cont bronchodilators
Bcx NTD
#Acute on chronic HFpEF exacerbation
#Troponin elevation most likely 2/2 shock and hypoxia, cannot exclude NSTEMI
#A.flutter
#SSS s/p PPM
Echo: hyperdynamic function (2/2 pressors?), EF 70%, possible moderate , LVOT gradient
Lasix as BP tolerates
FOllow Cr and electrolytes
Serial troponin
EKG without overt ST elevation
ASA, statin, BB
Heparin drip switched to ELiquis on 04/15/24
#hypokalemia
replete and follow
#GERD
#Hx of GIB
#LONDON
#HLD
cont home meds upon d/c
follow CBC in hospital
B12 and folate WNL
#JERRY on CKD stage 4 with hypernatremia
hypoperfusion with shock and Lasix on admission
hold lasix
follow Cr, Na
Nayak
IVF as per nephrology for insensible losses
#Hematochezia
most likely 2/2 nasal trauma with NFG snd NC
#b/l renal masses
recent MRI shoed increase in size
Reportedly was on palliative care approach at home
COnt follow clinical progress and discuss appropriate GOC with family
#Transaminitis
2/2 shock
follow LFT
DVT ppx heparin
Full code
I have spent at least 56min of time reviewing chart, test results, communication with consultants and direct patient care
Anticipated Discharge: 24 - 48 hours
Subjective/Interval History
-
Date of Service: April 16, 2024
Objective Data
-
Labs:
Laboratory Results
04/16/24
04:27
WBC 19.6 H
Hgb 11.0 L
Hct 38.3
Plt Count 220 D
Sodium 148 H
Potassium 5.5 H D
Chloride 109 H
Carbon Dioxide 35 H
BUN 102 H*
Creatinine 3.2 H
Glucose 134 H
Calcium 9.6
Total Bilirubin 0.8
AST 29
ALT 21
Alkaline Phosphatase 46
Vital Signs:
Vital Signs
Temp Pulse Resp BP Pulse Ox
98.3 F 88 35 73/54 94
04/16/24 07:00 04/16/24 10:00 04/16/24 10:00 04/16/24 10:00 04/16/24 10:00
I&O
04/15/24 04/16/2404/17/25
06:59 06:59 06:59
Intake Total 851.4 / 857.9 2505.5 / 2565.5
Output Total 645 / 675 1520 / 1540
Balance 206.4 / 182.9 985.5 / 1025.5
Review of Systems
-
Unable to obtain full review of systems at this time due to: Acuity
Physical Exam
-
General: Respiratory Distress
HEENT: Moist Mucous Membranes
Respiratory: Rhonchi and Crackles
Cardiac: Regular Rhythm
GI: Soft, Nontender and Nondistended
Genito-urinary: Clear Urine and Nayak
Musculoskeletal: No Clubbing, No Cyanosis, Edema, Right Lower Extrem and Edema, Left Lower Extrem
Neuro: Other (lethargic)
Psych: Calm
--- NOTE | 2024-04-16 10:29 | PTCARENOTE ---
Family discussion with physician and nursing team.
Family has decided to pursue comfort only measures.
[2024-04-16] MEDS: DESENEX/MITRAZOL/ZEASORB TOPICAL (10:32)
[2024-04-16] MEDS: MORPHINE SULFATE 1 MG IV ×3 (10:55→17:12)
[2024-04-16] MEDS: MORPHINE 100 IV (10:56)
--- NOTE | 2024-04-16 11:09 | PTCARENOTE ---
NG tube removed. Morphine gtt started per protocol.
Family updated on plan of care, comfort cart provided.
[2024-04-16] MEDS: DUONEB INH ×3 (11:30→19:36)
[2024-04-16] MEDS: ROBINUL 0.2 MG IV (11:37)
[2024-04-16] MEDS: DILAUDID 0.5 MG IV (12:05)
--- NOTE | 2024-04-16 13:43 | HOSPNOTE ---
Viewed patients chart.Patients meets criteria for GIP. On comfort now . Will admit GIP tomorrow if family is in agreement.
--- NOTE | 2024-04-16 16:01 | CHAP ---
Leona was sleeping peacefully, surrounded by loving family. They shared background about Leona, to whom family and russel are central. She has an adventurous spirit, and appreciates sports. Her family welcomed prayer for her - we commended Leona to
God, thanking Him for her life and love, and asking peace for all. Emotional and spiritual support provided, along with a prayer blanket, and assurance of our on-going availability.
--- NOTE | 2024-04-16 16:17 | PTCARENOTE ---
assumed care of pt, pastoral care visiting , pt is comfortable on morphine gtt , family at bedside , comfort care measures maintained
--- NOTE | 2024-04-16 17:16 | PTCARENOTE ---
pt showing increased signs of work of breath and discomfort , she had a rhythm change on monitor , 1mg IV morphine given as per protocol for comfort , family at bedside
--- NOTE | 2024-04-16 20:03 | W.PN.DEATH ---
Pronouncement of
-
Called to see patient to pronounce.
No spontaneous heart tones or respirations noted.
Patient not responsive to verbal stimuli.
Patient is pronounced .
Time of : 19:43
Date of : 04/16/24
Cause of : acute hypoxemic, hypercapnic respiratory failure, due to influenza A
Family Notified: Yes (family at bedside at time of )
--- NOTE | 2024-04-16 20:16 | PTCARENOTE ---
assumed care, @ start of shift pt comfortable on morphine gtt, family @ bedside, emotional support provided, ARIANA 1942, PORTER called @ 2013, otherwise refer to documentation.
--- NOTE | 2024-04-17 14:43 | W.DCSUMMARY ---
Discharge Summary
Discharge Data
Date of Admission: 04/12/24
Date of Discharge: 04/16/24
-
Pending Results: No
Hospital Course
83yo F with PMHX of HLD, HTN, GERD, COPD, b/l renal masses, LONDON, SSS s/p PPM, A.flutter, CAD s/p PCI, HFpEF, Hx of MV repair, Hx of CVT, CKD, Hx of GIB brought with worsening lethargy, found influenza A and COPD exacerbation with hypercarbuia, was
intubated overnight on 04/13/24, developed septic shock most likely 2/2 viral pneumonia, cannot exclude bacrterial component. Extubated with DNI status afterwards on 04/14/24. Re-developed obtundance with significant CO2 retention and crackles with
peristent oliguric JERRY on 04/16/24, so with no improvement family decisded comfort care approach. They verbalized agreement and understanding that no additional tests to be done, all active meds to be stoipped and patient will be provided symptomatic
relieve from dyspnea, anxiety and pain only. patient eventually on 04/16/24 at 19:43
Patient was managed for:
#Septic shock 2/2 Influenza A cannot exclude bacterial pneumonia
#Acute hypoxic hypercarbic respiratory failure 2/2 COPD exacerbation
#Acute on chronic HFpEF exacerbation
#Troponin elevation most likely 2/2 shock and hypoxia, cannot exclude NSTEMI
#A.flutter
#SSS s/p PPM
#hypokalemia
#GERD
#Hx of GIB
#LONDON
#HLD
#JERRY on CKD stage 4 with hypernatremia
#Hematochezia
#b/l renal masses
#Transaminitis
Discharge Plan
-
Patient Disposition:
Date/Time
Date/Time: 04/16/24 19:43
Discharge Date and Time
Discharge Date/Time: 04/16/24 19:43
Print Language: BELARUSIAN
== END 2024-04-16 19:43 | disposition expired | DRG 871 ==
LOC: ICU 19:15
PROVIDERS: Internal Medicine Critical Care Medicine; Nurse Practitioner Family; Nurse Practitioner Primary Care; Registered Nurse; ADMITTING PHYSICIAN Internal Medicine; ATTENDING PHYSICIAN Internal Medicine; CONSULT PHYSICIAN Internal Medicine; CONSULT PHYSICIAN Internal Medicine Nephrology; CONSULT PHYSICIAN Student in an Organized Health Care Education/Training Program; EMERGENCY PHYSICIAN Emergency Medicine; FAMILY PHYSICIAN Internal Medicine; OTHER PHYSICIAN Internal Medicine Cardiovascular Disease; OTHER PHYSICIAN Nurse Practitioner Gerontology
PROC: 5A09C5K Assistance with Respiratory Ventilation, 8-24 Consecutive Hours, Intubated Prone Positioning (ICD-10-PCS; 2024-04-13)
DX: A41.9 Sepsis, unspecified organism (principal); I21.4 Non-ST elevation (NSTEMI) myocardial infarction; I50.33 Acute on chronic diastolic (congestive) heart failure; J96.21 Acute and chronic respiratory failure with hypoxia; R65.21 Severe sepsis with septic shock; J10.00 Influenza due to other identified influenza virus with unspecified type of pneumonia; J12.9 Viral pneumonia, unspecified; J96.22 Acute and chronic respiratory failure with hypercapnia; N18.4 Chronic kidney disease, stage 4 (severe); E87.0 Hyperosmolality and hypernatremia; N17.9 Acute kidney failure, unspecified; I13.0 Hypertensive heart and chronic kidney disease with heart failure and stage 1 through stage 4 chronic kidney disease, or unspecified chronic kidney disease; J44.1 Chronic obstructive pulmonary disease with (acute) exacerbation; I48.92 Unspecified atrial flutter; E87.29 Other acidosis; N39.0 Urinary tract infection, site not specified; I48.91 Unspecified atrial fibrillation; E78.00 Pure hypercholesterolemia, unspecified; E11.22 Type 2 diabetes mellitus with diabetic chronic kidney disease; K21.9 Gastro-esophageal reflux disease without esophagitis; Z95.0 Presence of cardiac pacemaker; I49.5 Sick sinus syndrome; E87.6 Hypokalemia; Z79.01 Long term (current) use of anticoagulants; Z51.5 Encounter for palliative care; Z11.52 Encounter for screening for COVID-19; Z87.891 Personal history of nicotine dependence; I25.10 Atherosclerotic heart disease of native coronary artery without angina pectoris; Z95.5 Presence of coronary angioplasty implant and graft; E21.0 Primary hyperparathyroidism; E53.8 Deficiency of other specified B group vitamins; F32.A Depression, unspecified; M06.9 Rheumatoid arthritis, unspecified; Z79.899 Other long term (current) drug therapy; Z86.16 Personal history of COVID-19; Z99.81 Dependence on supplemental oxygen
CPT/HCPCS: 36600; 71045; 80048; 80053; 80061; 81003; 81015; 82248; 82330; 82570; 82607; 82746; 82805; 82962; 83036; 83615; 83735; 83880; 84100; 84132; 84145; 84300; 84302; 84439; 84443; 84478; 84484; 85025; 85027; 85045; 85730; 87040; 87070; 87205; 87502; 87641; 87811; 87899; 92610; 93005; 93306; 93971; 94002; 94003; 94640; 94660; 96374; 96375; 99285